=== PATIENT | female | born 1955 | race Caucasian/White ===

== ENCOUNTER → 2018-02-13 14:30 | Outpatient (CLI) | payer OTHER, SELFPAY | PROVIDERS: Visit Provider Nurse Practitioner Gerontology | DX: C50.912 Malignant neoplasm of unspecified site of left female breast (principal) | CPT/HCPCS: 77080 ==

== ENCOUNTER → 2018-02-13 14:53 | Outpatient (CLI) | payer OTHER, SELFPAY ==
[2018-02-13 15:47] LABS: Add Manual Diff / Slide Review NO; Basophils Percent Auto 0.6 % (0-2); Eosinophils Percent Auto 2.9 % (2-4); Hematocrit 37.1 % (36-46); Hemoglobin 13.1 g/dL (12.0-16.0); Lymphocytes Percent Auto 23.7 % (25-40); Mean Corpuscular HGB Conc 35.3 % (30-36); Mean Corpuscular Hemoglobin 35.2 PG (26-34); Mean Corpuscular Volume 99.8 fL (80-100); Monocytes Percent Auto 11.6 % (3-14); Neutrophils Absolute Auto 4200 /uL (3000-5900); Neutrophils Percent Auto 61.2 % (50-75); Platelet Count 186 X10^3/uL (150-400); Red Blood Cell Count 3.72 X10^6/uL (4.0-5.2); Red Cell Distribution Width 11.8 % (11.6-14.8); White Blood Cell Count 6.9 X10^3/uL (4.5-11.0)
[2018-02-13 16:15] LABS: Alanine Aminotransferase 42 IU/L (9-52); Albumin 3.8 g/dL (3.5-5.0); Albumin Globulin Ratio 1.2 (1.0-2.8); Alkaline Phosphatase 75 U/L (38-126); Aspartate Aminotransferase 46 IU/L (14-36); BUN Creatinine Ratio 43.8 (6-22); Bilirubin Total 0.6 mg/dL (0.2-1.3); Calcium 9.9 mg/dL (8.4-10.2); Estimated Glomerular Filt Rate > 60.0 mL/min (>60); Globulin 3.3 g/dL (1.7-4.1); Glucose 83 mg/dL (80-110); HEMOLYSIS 26 (0-50); Potassium 4.2 mmol/L (3.4-5.1); Sodium 137 mmol/L (137-145); Total Protein 7.1 g/dL (6.3-8.2)
[2018-02-17 10:31] LABS: 1 25 Dihydroxy Vitamin D 20 pg/mL (18-72)
[2018-02-17 16:02] LABS: Cancer Antigen 27.29 33 U/mL (< 38)
== END ==
PROVIDERS: Visit Provider Internal Medicine Hematology & Oncology
DX: C50.912 Malignant neoplasm of unspecified site of left female breast (principal)
CPT/HCPCS: 36415; 77080; 80053; 82652; 85025; 86300

== ENCOUNTER → 2018-06-18 14:42 | Outpatient (REF) | payer OTHER, SELFPAY | LOC: LAB 14:42 | PROVIDERS: Visit Provider Physician Assistant | DX: S80.921A Unspecified superficial injury of right lower leg, initial encounter (principal) | CPT/HCPCS: 87070; 87075; 87077; 87147; 87186; 87205 ==

== ENCOUNTER → 2018-06-23 13:23 | Outpatient (CLI) | payer OTHER, SELFPAY ==
--- NOTE | 2018-06-23 | OV.WND_ITS ---
Progress Note Details Patient Name: Yi Yeh Patient Number: [id number] PatientPatientDate: 06/23/2018 Clinician: Miladys Joyce Clinician Cosigner: Mercy Hooper Physician / Medicaid Analyst: Wili Villatoro SUBJECTIVE Chief Complaint This information was obtained from the patient Non-healing wound on right lower extremity. Allergies DAGO Inhibitors (Reaction: cough), penicillin (Reaction: very young age) HPI This information was obtained from the patient 06/23/18. Seen by Dr. Villatoro. The patient is new to our clinic and presents with a chronic right lower leg non-pressure ulcer that she feels started as an insect bite about one month ago. She's been treated with two courses of antibiotics and feels the surrounding redness and pain have increased considerably since last Friday when she was changed to Bactrim due to the recent MRSA positive wound culture. Family History This information was obtained from the patient Diabetes - Father, Heart Disease - Mother, Hypertension - Mother, Father, Sibling, Stroke - Mother Social History This information was obtained from the patient Never smoker, Alcohol Use - 3 wine/day, Caffeine Use - 1/2 cup, Marital Status - , Occupation - [employer] Past Medical History This information was obtained from the patient Patient has a medical history of: Hypertension Left breast cancer Surgical History This information was obtained from the patient Patient has a surgical history of: Appendectomy (Age 14) Left breast lumpectomy Dilation and curettage (cyst removal) Complaints and Symptoms This information was obtained from the patient Patient complains of: General Notes: I have reviewed and concur with the Review of Systems and Past Family Social History documents completed by the clinician, I have reviewed and concur with the Wound Assessment document completed by the clinician Cardiovascular (Central/Peripheral): Lower extremity (leg) swelling Integumentary (Hair/Skin/Nails): Open Sore Prior Wound History: Drainage, Erythema, Pain Patient denies complaints or symptoms related to: Cardiovascular (Central): Irregular heart beat Cardiovascular (Central/Peripheral): Intermittent Claudication, Lower extremity (leg) resting pain Constitutional Symptoms (General Health): Chills, Fever Ear/Nose/Mouth/Throat: Hearing Loss / Aid Hematologic/Lymphatic: Bleeding / Clotting Disorders, Bleeding Tendency Neurological: Loss of Protective Sensation Psychiatric: Memory Loss Respiratory: Shortness of Breath General Notes: Patient chooses not to have flu vaccine. Additional Information Does patient have a history of Cancer? Yes? Complete all questions.: Yes Location of Cancer: [facility] List Treating Oncologist: Dr. Chinchilla Patient underwent Radiation Treatment? If yes, answer question below.: Yes Date of Radiation Month/Year: spring Medications Bactrim DS 800 mg-160 mg tablet oral 1 1 tablet oral twice daily for 10 days for wound infection losartan 100 mg tablet oral 1 1 tablet oral once daily metoprolol succinate ER 100 mg tablet,extended release 24 hr oral 1 1 tablet extended release 24 hr oral once daily Calcium 500 500 mg calcium (1,250 mg) tablet oral 1 1 tablet oral once daily chlorthalidone 25 mg tablet oral 1 1 tablet oral once daily Vitamin C 500 mg tablet oral 1 1 tablet oral once daily Vitamin D3 5,000 unit tablet oral 1 1 tablet oral once daily OBJECTIVE Constitutional Vital signs reviewed and noted. Well developed. Alert. Clean appearing.. Height/ Length: 66 in (167.64 cm), Weight: 196 lbs (89.09 kgs), BMI: 31.6, Temperature: 98.0 ?F ( 36.67 ?C), Pulse: 53 bpm, Respiratory Rate: 18 breaths/min, Blood Pressure: 138/92 mmHg, Pulse Oximetry: 100 %. Ears, Nose, Mouth, and Throat: No clinically significant hearing loss on informal examination. Respiratory: No respiratory distress. Even respirations and without use of accessory muscles.. Cardiovascular: Pedal pulses 2+ on affected limb. Affected extremity exhibits no peripheral edema or cyanosis, is warm, and is well perfused. Capillary refill is less than 2 seconds. Integumentary (Hair, Skin) Mild periwound erythema with warmth. Refer to appropriate clinician wound documentation for this visit; right lower leg ulcer extends to subcut with base partially covered with pink granulation, remainder fibrin and slough. Wound #1 Right Leg is a chronic Full Thickness Venous Ulcer and has received a status of Not Healed. Initial wound encounter measurements are 3cm length x 3cm width x 0.2cm depth, with an area of 9 sq cm and a volume of 1.8 cubic cm. No tunneling has been noted. No sinus tract has been noted. No undermining has been noted. There is a moderate amount of serosanguineous drainage noted which has no odor. The patient reports a wound pain of level 0/10. The wound margin is attached. Wound bed has No epithelialization, Yes eschar, Yes slough, Yes bright red, pink, firm granulation. The periwound skin exhibited: Edema, Moist, Maceration, Erythema, Hemosiderosis. The periwound skin did not exhibit: Brawny Induration, Excoriation, Induration, Callus, Crepitus, Fluctuance, Friable, Rash, Dry/Scaly, Atrophie [place], Cyanosis, Ecchymosis, Pallor, Rubor. The temperature of the periwound skin is WNL. Periwound skin does not exhibit signs or symptoms of infection. Local Pulse is Palpable. Neurological: Cranial nerves grossly intact with symmetric function normal by informal observation.. ASSESSMENT Active Problems ICD-10 (Encounter Diagnosis) L97.512 - Non-pressure chronic ulcer of other part of right foot with fat layer exposed (Encounter Diagnosis) L03.116 - Cellulitis of left lower limb (Encounter Diagnosis) B95.62 - Methicillin resistant Staphylococcus aureus infection as the cause of diseases classified elsewhere PROCEDURES Wound #1 Wound #1 (Venous Ulcer) is located on the right leg. A skin/subcutaneous tissue level surgical debridement with a total area debrided of 9.6 sq cm was performed by Wili Villatoro MD. Subcutaneous was removed along with devitalized tissue: exudate, necrotic/eschar , and slough. The following instrument(s) were used: curette. Pain control was achieved using 4% Lido. A time out was conducted prior to the start of the procedure. A minimal amount of bleeding was controlled with pressure. The procedure was tolerated well with a pain level of 0 throughout and a pain level of 0 following the procedure. Post Debridement Measurements: 3cm length x 3.2cm width x 0.3cm depth; with an area of 9.6 sq cm and a volume of 2.88 cubic cm; Additional Information Muscle fascia or bone removed and sent to pathology?: No PLAN Wound Orders: Wound #1 Right Leg Anesthetic Topical Xylocaine to wound bed. - In clinic only. Cleanser Cleanse Wound: - Normal saline and gauze, may use distilled water at home. May Shower. - Please use cast protector or plastic bag, do not expose wound to shower water. Dressings Cover and secure with: - Silicone bordered foam. Change Dressing: - Every other day. Additional Orders: Compression/Edema Control Elevation of leg(s) above the level of the heart when sitting. Avoid prolonged standing in one place. Single Layer Compression Hose - Tetragrip E. On in the am, off at night. May purchase over the counter compression stockings, 20-30mmHg. Follow-Up Appointments Return Appointment: - - One week. Other information: If you develop fever, chills, increased pain, drainage, redness or swelling please call our office. If after hours, respond to the ER. Should you experience any significant changes in your wound(s) or have any questions regarding your home care instructions please contact the wound center @ [phone]. If after hours, contact your primary care physician or go to the hospital emergency room. Scribing Attestation I attest, as the nurse, that I scribed these orders for the physician. General Notes: Supplies ordered through [facility]. Please continue to take the Bactrim DS antibiotic as prescribed. I've reviewed the clinician's documentation and agree with the evaluation and plan as written. In addition, the patient's ulcer demonstrates evidence of non-viable devitalized tissue which will continue to benefit from sharp debridement to help promote granulation and expedite healing. Also, the patient will complete her Bactrim as prescribed to treat the right lower leg cellulitis and MRSA wound infection. Electronic Signature(s) Signed By: Date: Wili Villatoro MD 07/14/2018 08:43:34 Entered By: Wili Villatoro on 06/23/2018 15:01:35
== END ==
PROVIDERS: PCP Physician Assistant; Visit Provider Internal Medicine
DX: I87.311 Chronic venous hypertension (idiopathic) with ulcer of right lower extremity (principal); L97.812 Non-pressure chronic ulcer of other part of right lower leg with fat layer exposed; B95.62 Methicillin resistant Staphylococcus aureus infection as the cause of diseases classified elsewhere; L03.115 Cellulitis of right lower limb
CPT/HCPCS: 11042; 99214

== ENCOUNTER → 2018-06-30 14:37 | Outpatient (CLI) | payer OTHER, SELFPAY ==
--- NOTE | 2018-06-30 | OV.WND_ITS ---
Progress Note Details Patient Name: Yi Yeh Patient Number: [id number] PatientPatientDate: 06/30/2018 Clinician: Megan Puri Clinician Cosigner: Mercy Hooper Physician / Business Center Attendant: Wili Villatoro SUBJECTIVE Chief Complaint This information was obtained from the patient Non-healing wound on right lower extremity. Allergies DAGO Inhibitors (Reaction: cough), penicillin (Reaction: very young age) HPI This information was obtained from the patient 06/30/18. Seen by Dr. Villatoro. The patient reports improvement in terms of pain associated with the right lower leg non-pressure ulcer since starting on Bactrim for the MRSA positive wound culture taken at her last visit. She does not report fevers, adverse side effects of the Bactrim, nor other acute issues today. 06/23/18. Seen by Dr. Villatoro. The patient is new to our clinic and presents with a chronic right lower leg non-pressure ulcer that she feels started as an insect bite about one month ago. She's been treated with two courses of antibiotics and feels the surrounding redness and pain have increased considerably since last Friday when she was changed to Bactrim due to the recent MRSA positive wound culture. Past Medical History This information was obtained from the patient Patient has a medical history of: Hypertension Left breast cancer Complaints and Symptoms This information was obtained from the patient Patient complains of: General Notes: I have reviewed and concur with the Review of Systems and Past Family Social History documents completed by the clinician, I have reviewed and concur with the Wound Assessment document completed by the clinician Cardiovascular (Central/Peripheral): Lower extremity (leg) swelling Integumentary (Hair/Skin/Nails): Open Sore Prior Wound History: Drainage, Erythema, Pain Patient denies complaints or symptoms related to: Cardiovascular (Central): Irregular heart beat Cardiovascular (Central/Peripheral): Intermittent Claudication, Lower extremity (leg) resting pain Constitutional Symptoms (General Health): Chills, Fever Ear/Nose/Mouth/Throat: Hearing Loss / Aid Hematologic/Lymphatic: Bleeding / Clotting Disorders, Bleeding Tendency Neurological: Loss of Protective Sensation Psychiatric: Memory Loss Respiratory: Shortness of Breath Additional Information Does patient have a history of Cancer? Yes? Complete all questions.: Yes Location of Cancer: [facility] List Treating Oncologist: Dr. Chinchilla Patient underwent Radiation Treatment? If yes, answer question below.: Yes Date of Radiation Month/Year: spring OBJECTIVE Constitutional Vital signs reviewed and noted. Well developed. Alert. Clean appearing.. Height/ Length: 66 in (167.64 cm), Weight: 196.4 lbs (89.27 kgs), BMI: 31.7, Temperature: 98.0 ?F ( 36.67 ?C), Pulse: 67 bpm, Respiratory Rate: 18 breaths/min, Blood Pressure: 131/73 mmHg, Pulse Oximetry: 100 %. Ears, Nose, Mouth, and Throat: No clinically significant hearing loss on informal examination. Cardiovascular: Affected extremity exhibits no peripheral edema or cyanosis, is warm, and is well perfused. Capillary refill is less than 2 seconds. Integumentary (Hair, Skin) No periwound erythema, warmth, or significant drainage. No periwound rashes appreciated or noted otherwise.. Refer to appropriate clinician wound documentation for this visit; right lower leg ulcer extends to subcut with base partially covered with pink granulation, remainder fibrin and slough. Wound #1 Right Leg is a chronic Full Thickness Venous Ulcer and has received a status of Not Healed. Subsequent wound encounter measurements are 1.9cm length x 2.6cm width x 0.1cm depth, with an area of 4.94 sq cm and a volume of 0.494 cubic cm. No tunneling has been noted. No sinus tract has been noted. No undermining has been noted. There is a small amount of serosanguineous drainage noted which has no odor. The patient reports a wound pain of level 3/10. The wound margin is attached. Wound bed has Yes epithelialization, No eschar, Yes slough, Yes bright red, pink, firm granulation. The periwound skin moisture is normal. The periwound skin exhibited: Edema, Erythema, Hemosiderosis. The periwound skin did not exhibit: Brawny Induration, Excoriation, Induration, Callus, Crepitus, Fluctuance, Friable, Rash, Atrophie [place], Cyanosis, Ecchymosis, Pallor, Rubor. The temperature of the periwound skin is WNL. Periwound skin does not exhibit signs or symptoms of infection. Local Pulse is Palpable. Neurological: Cranial nerves grossly intact with symmetric function normal by informal observation.. ASSESSMENT Active Problems ICD-10 (Encounter Diagnosis) L97.512 - Non-pressure chronic ulcer of other part of right foot with fat layer exposed (Encounter Diagnosis) B95.62 - Methicillin resistant Staphylococcus aureus infection as the cause of diseases classified elsewhere PROCEDURES Wound #1 Wound #1 (Venous Ulcer) is located on the right leg. A skin/subcutaneous tissue level surgical debridement with a total area debrided of 4.94 sq cm was performed by Wili Villatoro MD. Subcutaneous was removed along with devitalized tissue: slough. The following instrument(s) were used: curette. Pain control was achieved using 4% Lido. A time out was conducted prior to the start of the procedure. A minimal amount of bleeding was controlled with pressure. The procedure was tolerated well with a pain level of 0 throughout and a pain level of 0 following the procedure. Post Debridement Measurements: 1.9cm length x 2.6cm width x 0.2cm depth; with an area of 4.94 sq cm and a volume of 0.988 cubic cm; Additional Information Muscle fascia or bone removed and sent to pathology?: No PLAN Wound Orders: Wound #1 Right Leg Anesthetic Topical Xylocaine to wound bed. - In clinic only. Cleanser Cleanse Wound: - Normal saline and gauze, may use distilled water at home. May Shower. - Please use cast protector or plastic bag, do not expose wound to shower water. Topical Treatments Antibiotic/Antimicrobial Ointment/Cream. - Gentamicin ointment to wound base. Dressings Primary dressing: - Foam Cover and secure with: - Conform and tape. Change Dressing: - Everyday. Additional Orders: Compression/Edema Control Elevation of leg(s) above the level of the heart when sitting. Avoid prolonged standing in one place. Single Layer Compression Hose - Tetragrip E. On in the am, off at night. May purchase over the counter compression stockings, 20-30mmHg. Follow-Up Appointments Return Appointment: - - One week. Other information: If you develop fever, chills, increased pain, drainage, redness or swelling please call our office. If after hours, respond to the ER. Should you experience any significant changes in your wound(s) or have any questions regarding your home care instructions please contact the wound center @ [phone]. If after hours, contact your primary care physician or go to the hospital emergency room. Scribing Attestation I attest, as the nurse, that I scribed these orders for the physician. Medications prescribed: gentamicin - topical 0.1 % ointment once daily for 7 days for infected ulcer starting 06/30/2018 General Notes: Please pick pulling machine tender prescription at your pharmacy. I've reviewed the clinician's documentation and agree with the evaluation and plan as written. In addition, the patient's ulcer demonstrates evidence of non-viable devitalized tissue which will continue to benefit from sharp debridement to help promote granulation and expedite healing. Also, the patient will begin using topical gentamicin to treat the MRSA positive culture and we'll defer additional oral antibiotics for now. Electronic Signature(s) Signed By: Date: Wili Villatoro MD 07/01/2018 13:52:56 Entered By: Wili Villatoro on 07/01/2018 11:50:18
--- NOTE | 2018-07-28 14:26 | ONC.NAV ---
Description: Survivorship Care Plan/Summary Activity: Sent copies to both pt and Primary Care Provider.
== END ==
PROVIDERS: PCP Physician Assistant; Visit Provider Internal Medicine
DX: I87.311 Chronic venous hypertension (idiopathic) with ulcer of right lower extremity (principal); L97.812 Non-pressure chronic ulcer of other part of right lower leg with fat layer exposed; B95.62 Methicillin resistant Staphylococcus aureus infection as the cause of diseases classified elsewhere
CPT/HCPCS: 11042

== ENCOUNTER → 2018-07-07 14:24 | Outpatient (CLI) | payer OTHER, SELFPAY ==
--- NOTE | 2018-07-07 | OV.WND_ITS ---
Progress Note Details Patient Name: Yi Yeh Patient Number: [id number] PatientPatientDate: 07/07/2018 Clinician: Miladys Joyce Clinician Cosigner: Margo Morrell Physician / Press Tool Maker: Wili Villatoro SUBJECTIVE Chief Complaint This information was obtained from the patient Non-healing wound on right lower extremity. Allergies DAGO Inhibitors (Reaction: cough), penicillin (Reaction: very young age) HPI This information was obtained from the patient 07/08/18. Seen by Dr. Villatoro. The patient reports improvement in terms of pain associated with the right lower leg non-pressure ulcer since her last visit. 06/30/18. Seen by Dr. Villatoro. The patient reports improvement in terms of pain associated with the right lower leg non-pressure ulcer since starting on Bactrim for the MRSA positive wound culture taken at her last visit. She does not report fevers, adverse side effects of the Bactrim, nor other acute issues today. 06/23/18. Seen by Dr. Villatoro. The patient is new to our clinic and presents with a chronic right lower leg non-pressure ulcer that she feels started as an insect bite about one month ago. She's been treated with two courses of antibiotics and feels the surrounding redness and pain have increased considerably since last Friday when she was changed to Bactrim due to the recent MRSA positive wound culture. Past Medical History This information was obtained from the patient Patient has a medical history of: Hypertension Left breast cancer Complaints and Symptoms This information was obtained from the patient Patient complains of: General Notes: I have reviewed and concur with the Review of Systems and Past Family Social History documents completed by the clinician, I have reviewed and concur with the Wound Assessment document completed by the clinician Cardiovascular (Central/Peripheral): Lower extremity (leg) swelling Integumentary (Hair/Skin/Nails): Open Sore Prior Wound History: Drainage, Erythema, Pain Patient denies complaints or symptoms related to: Cardiovascular (Central): Irregular heart beat Cardiovascular (Central/Peripheral): Intermittent Claudication, Lower extremity (leg) resting pain Constitutional Symptoms (General Health): Chills, Fever Ear/Nose/Mouth/Throat: Hearing Loss / Aid Hematologic/Lymphatic: Bleeding / Clotting Disorders, Bleeding Tendency Neurological: Loss of Protective Sensation Psychiatric: Memory Loss Respiratory: Shortness of Breath Additional Information Does patient have a history of Cancer? Yes? Complete all questions.: Yes Location of Cancer: [facility] List Treating Oncologist: Dr. Chinchilla Patient underwent Radiation Treatment? If yes, answer question below.: Yes Date of Radiation Month/Year: spring OBJECTIVE Constitutional BP elevated; Afebrile; Alert and in no distress. Well developed. Alert. Clean appearing.. Height/Length: 66 in (167.64 cm), Weight: 198.8 lbs (90.36 kgs), BMI: 32.1, Temperature: 97.8 ?F (36.56 ?C), Pulse: 76 bpm, Respiratory Rate: 18 breaths/min, Blood Pressure: 150/81 mmHg, Pulse Oximetry: 98 %. Cardiovascular: Affected extremity exhibits no peripheral edema or cyanosis, is warm, and is well perfused. Capillary refill is less than 2 seconds. Integumentary (Hair, Skin) No periwound erythema, warmth, or significant drainage. No periwound rashes appreciated or noted otherwise.. Refer to appropriate clinician wound documentation for this visit; right lower leg ulcer extends to subcut with base partially covered with pink granulation, remainder fibrin and slough. Wound #1 Right Leg is a chronic Full Thickness Venous Ulcer and has received a status of Not Healed. Subsequent wound encounter measurements are 1.1cm length x 1.8cm width x 0.1cm depth, with an area of 1.98 sq cm and a volume of 0.198 cubic cm. No tunneling has been noted. No sinus tract has been noted. No undermining has been noted. There is a scant amount of serous drainage noted which has no odor. The patient reports a wound pain of level 3/10. The wound margin is attached. Wound bed has Yes epithelialization, No eschar, Yes slough, Yes bright red, pink, firm granulation. The periwound skin moisture is normal. The periwound skin exhibited: Edema, Hemosiderosis. The periwound skin did not exhibit: Brawny Induration, Excoriation, Induration, Callus, Crepitus, Fluctuance, Friable, Rash, Atrophie [place], Cyanosis, Ecchymosis, Erythema, Pallor, Rubor. The temperature of the periwound skin is WNL. Periwound skin does not exhibit signs or symptoms of infection. Local Pulse is Palpable. Neurological: Cranial nerves grossly intact with symmetric function normal by informal observation.. ASSESSMENT Active Problems ICD-10 (Encounter Diagnosis) L97.512 - Non-pressure chronic ulcer of other part of right foot with fat layer exposed PROCEDURES Wound #1 Wound #1 (Venous Ulcer) is located on the right leg. A skin/subcutaneous tissue level surgical debridement with a total area debrided of 1.98 sq cm was performed by Wili Villatoro MD. Subcutaneous was removed along with devitalized tissue: slough. The following instrument(s) were used: curette. Pain control was achieved using 4% Lido. A time out was conducted prior to the start of the procedure. A minimal amount of bleeding was controlled with n/a. The procedure was tolerated well with a pain level of 0 throughout and a pain level of 0 following the procedure. Post Debridement Measurements: 1.1cm length x 1.8cm width x 0.2cm depth; with an area of 1.98 sq cm and a volume of 0.396 cubic cm; Additional Information Muscle fascia or bone removed and sent to pathology?: No PLAN Wound Orders: Wound #1 Right Leg Anesthetic Topical Xylocaine to wound bed. - In clinic only. Cleanser Cleanse Wound: - Normal saline and gauze, may use distilled water at home. May Shower. - Please use cast protector or plastic bag, do not expose wound to shower water. Topical Treatments Antibiotic/Antimicrobial Ointment/Cream. - Triple antibiotic ointment. Dressings Primary dressing: - Telfa non-stick pad. Cover and secure with: - Conform and tape. Change Dressing: - Every 2-3 days. Additional Orders: Compression/Edema Control Elevation of leg(s) above the level of the heart when sitting. Avoid prolonged standing in one place. Single Layer Compression Hose - Tetragrip E. On in the am, off at night. May purchase over the counter compression stockings, 20-30mmHg. Follow-Up Appointments Return Appointment: - - Two weeks. Other information: If you develop fever, chills, increased pain, drainage, redness or swelling please call our office. If after hours, respond to the ER. Should you experience any significant changes in your wound(s) or have any questions regarding your home care instructions please contact the wound center @ [phone]. If after hours, contact your primary care physician or go to the hospital emergency room. Scribing Attestation I attest, as the nurse, that I scribed these orders for the physician. I've reviewed the clinician's documentation and agree with the evaluation and plan as written. In addition, the patient's ulcer demonstrates evidence of non-viable devitalized tissue which will continue to benefit from sharp debridement to help promote granulation and expedite healing. Electronic Signature(s) Signed By: Date: Wili Villatoro MD 07/08/2018 07:59:58 Entered By: Wili Villatoro on 07/08/2018 07:34:46
== END ==
PROVIDERS: Family Provider Physician Assistant; PCP Physician Assistant; Visit Provider Internal Medicine
DX: I87.312 Chronic venous hypertension (idiopathic) with ulcer of left lower extremity (principal); L97.812 Non-pressure chronic ulcer of other part of right lower leg with fat layer exposed
CPT/HCPCS: 11042

== ENCOUNTER → 2018-07-21 10:09 | Outpatient (CLI) | payer OTHER, SELFPAY ==
--- NOTE | 2018-07-21 | OV.WND_ITS ---
Progress Note Details Patient Name: Yi Yeh Patient Number: [id number] PatientPatientDate: 07/21/2018 Clinician: Megan Puri Clinician Cosigner: Mercy Hooper Physician / Circle Edger: Wili Villatoro SUBJECTIVE Chief Complaint This information was obtained from the patient Non-healing wound on right lower extremity. Allergies DAGO Inhibitors (Reaction: cough), penicillin (Reaction: very young age) HPI This information was obtained from the patient 07/21/18. Seen by Dr. Villatoro. The patient complains of increased pain and drainage associated with the chronic right lower leg non-pressure ulcer over the past few days and she's no longer applying topical gentamicin to the ulcer base to treat the recent MRSA positive wound culture. 07/08/18. Seen by Dr. Villatoro. The patient reports improvement in terms of pain associated with the right lower leg non-pressure ulcer since her last visit. 06/30/18. Seen by Dr. Villatoro. The patient reports improvement in terms of pain associated with the right lower leg non-pressure ulcer since starting on Bactrim for the MRSA positive wound culture taken at her last visit. She does not report fevers, adverse side effects of the Bactrim, nor other acute issues today. 06/23/18. Seen by Dr. Villatoro. The patient is new to our clinic and presents with a chronic right lower leg non-pressure ulcer that she feels started as an insect bite about one month ago. She's been treated with two courses of antibiotics and feels the surrounding redness and pain have increased considerably since last Friday when she was changed to Bactrim due to the recent MRSA positive wound culture. Past Medical History This information was obtained from the patient Patient has a medical history of: Hypertension Left breast cancer Complaints and Symptoms This information was obtained from the patient Patient complains of: General Notes: I have reviewed and concur with the Review of Systems and Past Family Social History documents completed by the clinician, I have reviewed and concur with the Wound Assessment document completed by the clinician Cardiovascular (Central/Peripheral): Lower extremity (leg) swelling Integumentary (Hair/Skin/Nails): Open Sore Prior Wound History: Drainage, Erythema, Pain Patient denies complaints or symptoms related to: Cardiovascular (Central): Irregular heart beat Cardiovascular (Central/Peripheral): Intermittent Claudication, Lower extremity (leg) resting pain Constitutional Symptoms (General Health): Chills, Fever Ear/Nose/Mouth/Throat: Hearing Loss / Aid Hematologic/Lymphatic: Bleeding / Clotting Disorders, Bleeding Tendency Neurological: Loss of Protective Sensation Psychiatric: Memory Loss Respiratory: Shortness of Breath Additional Information Does patient have a history of Cancer? Yes? Complete all questions.: Yes Location of Cancer: [facility] List Treating Oncologist: Dr. Chinchilla Patient underwent Radiation Treatment? If yes, answer question below.: Yes Date of Radiation Month/Year: spring OBJECTIVE Constitutional BP elevated; Afebrile; Alert and in no distress. Well developed. Alert. Clean appearing.. Height/Length: 66 in (167.64 cm), Weight: 198.8 lbs (90.36 kgs), BMI: 32.1, Pulse: 68 bpm, Respiratory Rate: 18 breaths/min, Blood Pressure: 151/100 mmHg, Pulse Oximetry: 99 %. Ears, Nose, Mouth, and Throat: No clinically significant hearing loss on informal examination. Cardiovascular: 1+ right lower extremity edema. Integumentary (Hair, Skin) Mild periwound erythema with warmth. Refer to appropriate clinician wound documentation for this visit; right lower leg ulcer extends to subcut with base partially covered with pink granulation, remainder fibrin and slough. Wound #1 Right Leg is a chronic Full Thickness Venous Ulcer and has received a status of Not Healed. Subsequent wound encounter measurements are 2cm length x 4.5cm width x 0.1cm depth, with an area of 9 sq cm and a volume of 0.9 cubic cm. No tunneling has been noted. No sinus tract has been noted. No undermining has been noted. There is a moderate amount of purulent drainage noted which has no odor. The patient reports a wound pain of level 10/10. The wound margin is attached. Wound bed has Yes epithelialization, No eschar, Yes slough, Yes bright red, pink, firm granulation. The periwound skin exhibited: Edema, Maceration, Erythema, Hemosiderosis. The periwound skin did not exhibit: Brawny Induration, Excoriation, Induration, Callus, Crepitus, Fluctuance, Friable, Rash, Dry/Scaly, Moist, Atrophie [place], Cyanosis, Ecchymosis, Pallor , Rubor. The temperature of the periwound skin is WNL. Periwound skin does not exhibit signs or symptoms of infection. Local Pulse is Palpable. General Notes: measured epithelial bridge 0.4 Neurological: Cranial nerves grossly intact with symmetric function normal by informal observation.. ASSESSMENT Active Problems ICD-10 (Encounter Diagnosis) L97.512 - Non-pressure chronic ulcer of other part of right foot with fat layer exposed (Encounter Diagnosis) L03.115 - Cellulitis of right lower limb PROCEDURES Wound #1 Wound #1 (Venous Ulcer) is located on the right leg. A skin/subcutaneous tissue level surgical debridement with a total area debrided of 9 sq cm was performed by Wili Villatoro MD. Subcutaneous was removed along with devitalized tissue: slough. The following instrument(s) were used: curette. Pain control was achieved using 4% Lido. A time out was conducted prior to the start of the procedure. A minimal amount of bleeding was controlled with n/a. The procedure was tolerated well with a pain level of 0 throughout and a pain level of 0 following the procedure. Post Debridement Measurements: 2cm length x 4.5cm width x 0.2cm depth; with an area of 9 sq cm and a volume of 1.8 cubic cm; Additional Information Muscle fascia or bone removed and sent to pathology?: No PLAN Wound Orders: Wound #1 Right Leg Anesthetic Topical Xylocaine to wound bed. - In clinic only. Cleanser Cleanse Wound: - Normal saline and gauze, may use distilled water at home. May Shower. - Please use cast protector or plastic bag, do not expose wound to shower water. Topical Treatments Antibiotic/Antimicrobial Ointment/Cream. - Gentamicin ointment to wound base. Dressings Primary dressing: - Telfa non-stick pad. Cover and secure with: - Conform and tape. Change Dressing: - Every 2-3 days. Additional Orders: Compression/Edema Control Elevation of leg(s) above the level of the heart when sitting. Avoid prolonged standing in one place. Single Layer Compression Hose - Tetragrip E. On in the am, off at night. May purchase over the counter compression stockings, 20-30mmHg. Follow-Up Appointments Return Appointment: - - One week Other information: If you develop fever, chills, increased pain, drainage, redness or swelling please call our office. If after hours, respond to the ER. Should you experience any significant changes in your wound(s) or have any questions regarding your home care instructions please contact the wound center @ [phone]. If after hours, contact your primary care physician or go to the hospital emergency room. Scribing Attestation I attest, as the nurse, that I scribed these orders for the physician. Medications prescribed: Bactrim DS - oral 800 mg-160 mg tablet twice daily for 7 days for infected ulcer starting 07/21/2018 General Notes: Please chicken picker prescription at your pharmacy. We will call you if the physician wants to add or change another antibiotics regarding the wound culture result. I've reviewed the clinician's documentation and agree with the evaluation and plan as written. In addition, the patient's ulcer demonstrates evidence of non-viable devitalized tissue which will continue to benefit from sharp debridement to help promote granulation and expedite healing. Electronic Signature(s) Signed By: Date: Wili Villatoro MD 07/22/2018 06:45:54 Entered By: Wili Villatoro on 07/21/2018 15:37:24
== END ==
PROVIDERS: Family Provider Physician Assistant; PCP Physician Assistant; Visit Provider Internal Medicine
DX: I87.311 Chronic venous hypertension (idiopathic) with ulcer of right lower extremity (principal); L97.812 Non-pressure chronic ulcer of other part of right lower leg with fat layer exposed; L03.115 Cellulitis of right lower limb
CPT/HCPCS: 11042; 87070; 87077; 87147; 87186; 87205

== ENCOUNTER → 2018-07-28 14:38 | Outpatient (CLI) | payer OTHER, SELFPAY | PROVIDERS: Family Provider Physician Assistant; PCP Physician Assistant; Visit Provider Internal Medicine | DX: I87.311 Chronic venous hypertension (idiopathic) with ulcer of right lower extremity (principal); L97.812 Non-pressure chronic ulcer of other part of right lower leg with fat layer exposed; A49.02 Methicillin resistant Staphylococcus aureus infection, unspecified site | CPT/HCPCS: 11042 ==

== ENCOUNTER → 2018-08-04 16:19 | Outpatient (CLI) | payer OTHER, SELFPAY ==
--- NOTE | 2018-08-04 | OV.WND_ITS ---
Progress Note Details Patient Name: Yi Yeh Patient Number: [id number] PatientPatientDate: 08/04/2018 Clinician: Miladys Joyce Clinician Cosigner: Mercy Hooper Physician / Cadmium Liquor Maker: Wili Villatoro SUBJECTIVE Chief Complaint This information was obtained from the patient Non-healing wound on right lower extremity. Allergies DAGO Inhibitors (Reaction: cough), penicillin (Reaction: very young age) HPI This information was obtained from the patient 08/04/18. Seen by Dr. Villatoro. The patient reports improvement in terms of pain associated with the right lower leg non-pressure ulcer since starting on Bactrim for the MRSA positive wound culture taken at her last visit. She's also applying topical gentamicin daily as recommended. 07/28/18. Seen by Dr. Villaotro. The patient reports improvement in terms of pain associated with the right lower leg non-pressure ulcer since starting on Bactrim for the MRSA positive wound culture taken at her last visit. 07/21/18. Seen by Dr. Villatoro. The patient complains of increased pain and drainage associated with the chronic right lower leg non-pressure ulcer over the past few days and she's no longer applying topical gentamicin to the ulcer base to treat the recent MRSA positive wound culture. 07/08/18. Seen by Dr. Villatoro. The patient reports improvement in terms of pain associated with the right lower leg non-pressure ulcer since her last visit. 06/30/18. Seen by Dr. Villatoro. The patient reports improvement in terms of pain associated with the right lower leg non-pressure ulcer since starting on Bactrim for the MRSA positive wound culture taken at her last visit. She does not report fevers, adverse side effects of the Bactrim, nor other acute issues today. 06/23/18. Seen by Dr. Villatoro. The patient is new to our clinic and presents with a chronic right lower leg non-pressure ulcer that she feels started as an insect bite about one month ago. She's been treated with two courses of antibiotics and feels the surrounding redness and pain have increased considerably since last Friday when she was changed to Bactrim due to the recent MRSA positive wound culture. Past Medical History This information was obtained from the patient Patient has a medical history of: Hypertension Left breast cancer Complaints and Symptoms This information was obtained from the patient Patient complains of: General Notes: I have reviewed and concur with the Review of Systems and Past Family Social History documents completed by the clinician, I have reviewed and concur with the Wound Assessment document completed by the clinician Cardiovascular (Central/Peripheral): Lower extremity (leg) swelling Integumentary (Hair/Skin/Nails): Open Sore Prior Wound History: Drainage, Erythema, Pain Patient denies complaints or symptoms related to: Cardiovascular (Central): Irregular heart beat Cardiovascular (Central/Peripheral): Intermittent Claudication, Lower extremity (leg) resting pain Constitutional Symptoms (General Health): Chills, Fever Ear/Nose/Mouth/Throat: Hearing Loss / Aid Hematologic/Lymphatic: Bleeding / Clotting Disorders, Bleeding Tendency Neurological: Loss of Protective Sensation Psychiatric: Memory Loss Respiratory: Shortness of Breath Additional Information Does patient have a history of Cancer? Yes? Complete all questions.: Yes Location of Cancer: [facility] List Treating Oncologist: Dr. Chinchilla Patient underwent Radiation Treatment? If yes, answer question below.: Yes Date of Radiation Month/Year: spring OBJECTIVE Constitutional Vital signs reviewed and noted. Well developed. Alert. Clean appearing.. Height/ Length: 66 in (167.64 cm), Weight: 197.2 lbs (89.64 kgs), BMI: 31.8, Temperature: 97.6 ?F ( 36.44 ?C), Pulse: 80 bpm, Respiratory Rate: 16 breaths/min, Blood Pressure: 129/79 mmHg, Pulse Oximetry: 97 %. Respiratory: No respiratory distress. Even respirations and without use of accessory muscles.. Cardiovascular: Affected extremity exhibits no peripheral edema or cyanosis, is warm, and is well perfused. Capillary refill is less than 2 seconds. Integumentary (Hair, Skin) No periwound erythema, warmth, or significant drainage. No periwound rashes appreciated or noted otherwise.. Refer to appropriate clinician wound documentation for this visit; right lower leg ulcer extends to subcut with base partially covered with pink granulation, remainder fibrin and slough. Wound #1 Right Leg is a chronic Full Thickness Venous Ulcer and has received a status of Not Healed. Subsequent wound encounter measurements are 1cm length x 2.1cm width x 0.1cm depth, with an area of 2.1 sq cm and a volume of 0.21 cubic cm. No tunneling has been noted. No sinus tract has been noted. No undermining has been noted. There is a small amount of serous drainage noted which has no odor. The patient reports a wound pain of level 2/10. The wound margin is attached. Wound bed has Yes epithelialization, No eschar, Yes slough, Yes bright red, pink, firm granulation. The periwound skin exhibited: Edema, Moist, Hemosiderosis. The periwound skin did not exhibit: Brawny Induration, Excoriation, Induration, Callus, Crepitus, Fluctuance, Friable, Rash, Dry/Scaly, Maceration, Atrophie [place], Cyanosis, Ecchymosis, Erythema, Pallor , Rubor. The temperature of the periwound skin is WNL. Periwound skin does not exhibit signs or symptoms of infection. Local Pulse is Palpable. ASSESSMENT Active Problems ICD-10 (Encounter Diagnosis) L97.512 - Non-pressure chronic ulcer of other part of right foot with fat layer exposed (Encounter Diagnosis) B95.62 - Methicillin resistant Staphylococcus aureus infection as the cause of diseases classified elsewhere PROCEDURES Wound #1 Wound #1 (Venous Ulcer) is located on the right leg. A skin/subcutaneous tissue level surgical debridement with a total area debrided of 2.1 sq cm was performed by Wili Villatoro MD. Subcutaneous was removed along with devitalized tissue: exudate and slough. The following instrument(s) were used: curette. Pain control was achieved using 4% Lido. A time out was conducted prior to the start of the procedure. No bleeding occurred. The procedure was tolerated well with a pain level of 0 throughout and a pain level of 0 following the procedure. Post Debridement Measurements: 1cm length x 2.1cm width x 0.2cm depth; with an area of 2.1 sq cm and a volume of 0.42 cubic cm; Additional Information Muscle fascia or bone removed and sent to pathology?: No PLAN Wound Orders: Wound #1 Right Leg Anesthetic Topical Xylocaine to wound bed. - Used in clinic. Cleanser Cleanse Wound: - Normal saline and gauze. May use distilled water at home. May Shower. - Cover with cast protector or plastic bag. Topical Treatments Antibiotic/Antimicrobial Ointment/Cream. - Gentamicin ointment. Dressings Cover and secure with: - Telfa pad, paper tape. Change Dressing: - Every 2-3 days. Compression/Edema Control Elevation of leg(s) above the level of the heart when sitting. Avoid prolonged standing in one place. Single Layer Compression Hose - Tetragrip E to right leg. On in the am, off at night. Follow-Up Appointments Return Appointment: - - 10-14 days. Other information: If you develop fever, chills, increased pain, drainage, redness or swelling please call our office. If after hours, respond to the ER. Should you experience any significant changes in your wound(s) or have any questions regarding your home care instructions please contact the wound center @ [phone]. If after hours, contact your primary care physician or go to the hospital emergency room. Scribing Attestation I attest, as the nurse, that I scribed these orders for the physician. I've reviewed the clinician's documentation and agree with the evaluation and plan as written. In addition, the patient's ulcer demonstrates evidence of non-viable devitalized tissue which will continue to benefit from sharp debridement to help promote granulation and expedite healing. Also, I'll defer additional oral antibiotics however she'll continue treating with topical gentamicin ointment. Electronic Signature(s) Signed By: Date: Wili Villatoro MD 08/05/2018 07:09:40 Entered By: Wili Villatoro on 08/05/2018 06:58:47
== END ==
PROVIDERS: Family Provider Physician Assistant; PCP Physician Assistant; Visit Provider Internal Medicine
DX: I87.2 Venous insufficiency (chronic) (peripheral) (principal); L97.812 Non-pressure chronic ulcer of other part of right lower leg with fat layer exposed; B95.62 Methicillin resistant Staphylococcus aureus infection as the cause of diseases classified elsewhere
CPT/HCPCS: 11042

== ENCOUNTER → 2018-08-19 14:53 | Outpatient (CLI) | payer OTHER, SELFPAY | PROVIDERS: Family Provider Physician Assistant; PCP Physician Assistant; Visit Provider Family Medicine | DX: I87.311 Chronic venous hypertension (idiopathic) with ulcer of right lower extremity (principal); L97.811 Non-pressure chronic ulcer of other part of right lower leg limited to breakdown of skin | CPT/HCPCS: 99212; 99213 ==

== ENCOUNTER → 2018-08-25 14:52 | Outpatient (CLI) | payer OTHER, SELFPAY | PROVIDERS: Family Provider Physician Assistant; PCP Physician Assistant; Visit Provider Family Medicine | DX: I87.311 Chronic venous hypertension (idiopathic) with ulcer of right lower extremity (principal); L97.811 Non-pressure chronic ulcer of other part of right lower leg limited to breakdown of skin | CPT/HCPCS: 99212; 99213 ==

== ENCOUNTER → 2018-09-02 14:46 | Outpatient (CLI) | payer OTHER, SELFPAY | PROVIDERS: Family Provider Physician Assistant; PCP Physician Assistant; Visit Provider Family Medicine | DX: L97.811 Non-pressure chronic ulcer of other part of right lower leg limited to breakdown of skin (principal); I87.311 Chronic venous hypertension (idiopathic) with ulcer of right lower extremity; M13.849 Other specified arthritis, unspecified hand | CPT/HCPCS: 99213 ==

== ENCOUNTER → 2018-09-02 15:52 | Outpatient (CLI) | payer OTHER, SELFPAY ==
[2018-09-02 16:35] LABS: Erythrocyte Sedimentation Rate 42 MM/HR (0-20)
[2018-09-02 17:07] LABS: High Sensitivity CRP - Cardiac 4.3 mg/L (1.0-3.0)
[2018-09-02 17:14] LABS: Rheumatoid Factor < 8.6 IU/mL (<12.0)
[2018-09-07 23:11] LABS: ANA Screen NEGATIVE (Negative); DNA Antibody Crithidia IFA NEGATIVE (Negative); Rheumatoid Factor <14 IU/mL; Sjogren Antiboday SS-A <1.0 NEG AI (<1.0 NEGATIVE); Sjogren Antiboday SS-B <1.0 NEG AI (<1.0 NEGATIVE); Sm Antibody <1.0 NEG AI (<1.0 NEGATIVE); Sm/RNP Antibody <1.0 NEG AI (<1.0 NEGATIVE)
== END ==
PROVIDERS: Family Provider Physician Assistant; PCP Physician Assistant; Visit Provider Family Medicine
DX: M25.50 Pain in unspecified joint (principal)
CPT/HCPCS: 36415; 85651; 86038; 86140; 86430

== ENCOUNTER → 2019-02-15 15:16 | Outpatient (CLI) | payer OTHER, SELFPAY ==
--- NOTE | 2019-02-15 | DI.MG.S_ITS ---
BILATERAL DIGITAL SCREENING MAMMOGRAM 3D/2D WITH CAD: 02/15/2019 CLINICAL: Routine screening. Personal history of left breast cancer. Comparison is made to exams dated: 02/14/2018 mammogram, 10/15/2016 mammogram, and 04/24/2016 mammogram - [facility]. The tissue of both breasts is predominantly fatty. Current study was also evaluated with a Computer Aided Detection (CAD) system. There are benign post operative findings in the left breast. No significant masses, calcifications, or other findings are seen in either breast. There has been no significant interval change. IMPRESSION: There is no mammographic evidence of malignancy. A 1 year screening mammogram is recommended. This exam was interpreted at Station ID: [id number]. NOTE: For mammograms, a report in lay terms will be sent to the patient. Approximately 15% of breast malignancies will not be visualized mammographically. In the management of a palpable breast mass, a negative mammogram must not discourage biopsy of a clinically suspicious lesion. Electronically Signed By: Javier saavedra/renuka:02/15/2019 16:45:13 letter sent: Normal Exam ACR BI-RADS Category 2: Benign Finding(s) 3342F
== END ==
PROVIDERS: PCP Physician Assistant
DX: Z12.31 Encounter for screening mammogram for malignant neoplasm of breast (principal); Z85.3 Personal history of malignant neoplasm of breast
CPT/HCPCS: 77063; 77067

== ENCOUNTER 2021-09-22 06:23 | Inpatient (IN) | payer MEDICARE, OTHER, SELFPAY ==
[2021-09-22] VITALS (19 sets, daily range): BP systolic 93–153; BP diastolic 52–64; PULSE 72–91; RESP 16–23; TEMP 36.7–37.7; O2SAT 95–100; BMI 31.1
--- NOTE | 2021-09-22 06:37 | DI.CT.S_ITS ---
PROCEDURE: CT CERVICAL SPINE WO CON INDICATIONS: Trauma TECHNIQUE: Noncontrast 3 mm thick sections acquired from the skull base to the T4 level. Sagittal and coronal reformats were then constructed. For radiation dose reduction, the following was used: automated exposure control, adjustment of mA and/or kV according to patient size. COMPARISON: None. FINDINGS: Image quality: Excellent. Bones: No fractures or dislocations. Visualized superior ribs are intact. The left temporomandibular joint has degenerative changes. The cervical spine has multilevel degenerative changes with disc space narrowing and anterior osteophytes at C3-4, C4-5, C5-6, and C6-7. Posterior disc osteophytes are also seen at these levels. There is facet arthrosis throughout the cervical spine. Soft tissues: Prevertebral soft tissues are normal in thickness. No paravertebral hematomas. No apical pneumothoraces. IMPRESSION: 1. No acute traumatic abnormality of the cervical spine. 2. Multilevel degenerative changes and degenerative disc disease of the cervical spine. Dictated by: Elroy Gamez M.D. on 09/22/2021 at 7:52 Approved by: Elroy Gamez M.D. on 09/22/2021 at 7:54
--- NOTE | 2021-09-22 06:37 | DI.CT.S_ITS ---
PROCEDURE: CT HEAD/BRAIN WO CON INDICATIONS: Trauma TECHNIQUE: Noncontrast 4.5 mm thick angled axial sections acquired from the foramen magnum to the vertex, with coronal and sagittal reformats. For radiation dose reduction, the following was used: automated exposure control, adjustment of mA and/or kV according to patient size. COMPARISON: None. FINDINGS: Image quality: Excellent. CSF spaces: Basal cisterns are patent. No extra-axial fluid collections. Ventricles are normal in size and shape. Brain: No midline shift. No intracranial masses or hemorrhage. Dsouza-white matter interface is normal. Age related volume loss is noted. Skull and face: Calvarium and visualized facial bones are intact, without suspicious lesions. Sinuses: Visualized sinuses and mastoids are clear. IMPRESSION: No acute intracranial abnormality. Dictated by: Elroy Gamez M.D. on 09/22/2021 at 7:49 Approved by: Elroy Gamez M.D. on 09/22/2021 at 7:51
--- NOTE | 2021-09-22 06:37 | DI.CT.S_ITS ---
PROCEDURE: CT CHEST ABD PEL W CON INDICATIONS: rectal bleeding, trauma TECHNIQUE: After the administration of intravenous contrast, 5 mm thick sections acquired from the lung apices to the symphysis. 2.5 mm thick coronal and sagittal reformats were acquired. Additional 7 mm thick coronal maximum intensity projection (MIP) reformats acquired through the lungs. Optional 10-minute delayed imaging may be performed from the kidneys to the bladder. For radiation dose reduction, the following was used: automated exposure control, adjustment of mA and/or kV according to patient size. COMPARISON: None. FINDINGS: Image quality: Excellent. CHEST: Lungs: No pulmonary contusions or lacerations. No acute airspace opacities. No pneumothorax or hemothorax. Central and peripheral airways appear patent and normal in caliber. Mediastinum: No mediastinal hematomas. Heart size is normal. No pericardial effusion. Thoracic aorta and pulmonary arteries demonstrate normal size and enhancement. No mediastinal or hilar adenopathy. Esophagus is normal in caliber. No hiatal hernia. Chest wall: No rib fractures. No subcutaneous emphysema. No axillary or supraclavicular adenopathy. Thyroid gland is normal. ABDOMEN: Solid organs: The liver has a 6 cm cyst in the right lobe. The liver has multiple subcentimeter hypodensities, likely cysts but too small to further characterize. No solid mass. No intrahepatic biliary ductal dilatation. The gallbladder contains layering high density, likely sludge. The pancreas, spleen, and adrenal glands are normal. Both kidneys have a normal appearance except for a 1.5 cm cyst of the left superior pole. No hydronephrosis or nephroureteral calculus. The uterus contains multiple fibroids 1 of which on the right is calcified. Peritoneum and bowel: The sigmoid colon has diverticulosis with no evidence of acute diverticulitis. Nodes and vessels: No retroperitoneal or mesenteric adenopathy. Aorta and inferior vena cava are normal in size and enhancement. Miscellaneous: No ventral hernias. PELVIS: Genitourinary: The left ovary has a 2 cm cyst. Miscellaneous: No inguinal hernias or adenopathy. Bones: Multilevel degenerative changes and multilevel disc disease. Pelvic ring and hip joints appear intact. No vertebral compression fractures. IMPRESSION: 1. No acute traumatic abnormality of the chest, abdomen, or pelvis. 2. Diverticulosis of the sigmoid colon with no evidence of acute diverticulitis. 3. 7 cm right hepatic simple cyst with multiple subcentimeter hypodensities, likely cysts but too small to further characterize cysts but too small to further characterize. If there is suspicion of any liver abnormality this could be further evaluated with ultrasound. 4. Gallbladder sludge with no evidence of acute cholecystitis. Dictated by: Elroy Gamez M.D. on 09/22/2021 at 7:59 Approved by: Elroy Gamez M.D. on 09/22/2021 at 8:10
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
--- NOTE | 2021-09-22 06:45 | DI.RAD.S_ITS ---
PROCEDURE: XR SHOULDER LT MIN 2V INDICATIONS: left shoulder pain TECHNIQUE: 2 views of the shoulder were acquired. COMPARISON: None. FINDINGS: Bones: There is a minimally displaced fracture of the distal clavicle adjacent to the acromioclavicular joint. The acromioclavicular joint and glenohumeral joint have degenerative changes. Soft tissues: No suspicious soft tissue calcifications. Surgical clips are present in the left axilla. IMPRESSION: Minimally displaced fracture of the left distal clavicle. Dictated by: Elroy Gamez M.D. on 09/22/2021 at 7:48 Approved by: Elroy Gamez M.D. on 09/22/2021 at 7:49
[2021-09-22 06:50] LABS: INR 1.2 (0.9-1.3)
[2021-09-22] MEDS: TET,DIPH,PERTUSS(ACELL),VAC/PF 0.5 ML SYRINGE IM (06:50)
[2021-09-22 06:53] LABS: PTT Partial Thromboplastin Tim 29 SECONDS (26.4-36.2)
[2021-09-22 06:55] LABS: Hemoglobin 11.4 g/dL (12.0-16.0); Mean Corpuscular HGB Conc 34.7 % (30-36); Mean Corpuscular Hemoglobin 40.1 PG (26-34); Mean Corpuscular Volume 115.7 fL (80-100); Platelet Count 131 X10^3/uL (150-400); Red Blood Cell Count 2.85 X10^6/uL (4.0-5.2); Red Cell Distribution Width 14.7 % (11.6-14.8); White Blood Cell Count 7.8 X10^3/uL (4.5-11.0)
[2021-09-22] MEDS: ONDANSETRON 4 MG/2 ML INJ IV (06:55)
[2021-09-22 06:56] LABS: Alanine Aminotransferase 65 IU/L (<35); Albumin 3.8 g/dL (3.5-5.0); Alkaline Phosphatase 116 U/L (38-126); Aspartate Aminotransferase 143 IU/L (14-36); BUN Creatinine Ratio 31.5 (6-22); Bilirubin Total 3.3 mg/dL (0.2-1.3); Blood Urea Nitrogen 64 mg/dL (7-17); Calcium 9.1 mg/dL (8.4-10.2); Carbon Dioxide 21 mmol/L (22-32); Chloride 100 mmol/L (98-107); Estimated Glomerular Filt Rate 24.4 mL/min (>60); Ethanol (ETOH) < 10 mg/dL; Globulin 3.9 g/dL (1.7-4.1); Glucose 64 mg/dL (80-110); HEMOLYSIS < 15 (0-50); Lipase 458 U/L (23-300); Sodium 136 mmol/L (137-145); Total Protein 7.7 g/dL (6.3-8.2)
[2021-09-22 06:58] LABS: Add Manual Diff / Slide Review YES
[2021-09-22] MEDS: SODIUM CHLORIDE 0.9% 1,000 ML 1000 ML IV ×2 (07:23→10:41)
[2021-09-22 07:26] LABS: Macrocytosis 3+; Neutrophils Absolute Manual 6084 /uL (3000-5900); Platelet Estimate Decreased on smear; Total Cells Counted 100
[2021-09-22] MEDS: ONDANSETRON 4 MG/2 ML INJ (08:40)
[2021-09-22 09:47] LABS: Ur Creatinine Normal (Normal); Ur Specific Gravity Normal (Normal); Urine Tetrahydrocannabinol Negative (Negative); Urine pH Normal (Normal)
[2021-09-22 09:48] LABS: UR Morphine/Opiate cutoff 300 Negative (Negative); Urine Amphetamines Negative (Negative); Urine Barbiturates Negative (Negative); Urine Benzodiazepines Negative (Negative); Urine Cocaine Negative (Negative); Urine MDMA Negative (Negative); Urine Methadone Negative (Negative); Urine Methamphetamines Negative (Negative); Urine Oxycodone Negative (Negative); Urine Phencyclidine Negative (Negative); Urine Tricyclic Antidepressant Negative (Negative)
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
[2021-09-22 10:00] LABS: Creatinine Urine Random 77.1 mg/dL; Sodium Urine Random 45 mmol/L (30-90)
[2021-09-22] MEDS: ACETAMINOPHEN 325 MG TABLET 650 MG PO (10:40)
[2021-09-22 10:43] LABS: Appearance Urine UA CLEAR; Bilirubin Urine UA NEGATIVE (NEGATIVE); Color Urine UA YELLOW; Glucose Urine UA TRACE g/dL (Negative); Ketones Urine UA TRACE (NEGATIVE); Leukocyte Esterase Urine UA NEGATIVE (NEGATIVE); Nitrite Urine UA NEGATIVE (Negative); Occult Blood Urine UA 3+ (Negative); Protein Urine UA NEGATIVE (Negative); RBC Urine 1-5/HPF (0-5/HPF); Squamous Epithelial Cell Urine 10-30 /HPF (0-5/HPF); WBC Urine 1-5/HPF (0-5/HPF)
[2021-09-22 10:44] LABS: Bacteria Urine Moderate (10-30); Culture Indicated Urine Cult Not Indicated
[2021-09-22 10:57] LABS: Hematocrit 31.3 % (36-46); Hemoglobin 10.9 g/dL (12.0-16.0)
[2021-09-22 11:10] LABS: Alanine Aminotransferase 59 IU/L (<35); Albumin 3.4 g/dL (3.5-5.0); Albumin Globulin Ratio 0.9 (1.0-2.8); Alkaline Phosphatase 99 U/L (38-126); Aspartate Aminotransferase 132 IU/L (14-36); Bilirubin Total 3.4 mg/dL (0.2-1.3); Blood Urea Nitrogen 62 mg/dL (7-17); Calcium 8.5 mg/dL (8.4-10.2); Carbon Dioxide 21 mmol/L (22-32); Chloride 100 mmol/L (98-107); Estimated Glomerular Filt Rate 26.7 mL/min (>60); Globulin 3.8 g/dL (1.7-4.1); Glucose 87 mg/dL (80-110); HEMOLYSIS < 15 (0-50); Potassium 4.1 mmol/L (3.4-5.1); Sodium 133 mmol/L (137-145); Total Protein 7.2 g/dL (6.3-8.2)
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
--- NOTE | 2021-09-22 12:00 | PC.NURSE ---
This WEB[employer] COMMERCE DEVELOPER was already in the room to assist pt with ADL. Doctor came in and stated that he would need to do a rectal exam. This pt stayed in the room to sales and marketing agent procedure. This WEB[employer] COMMERCE DEVELOPER assisted pt with turning to the side, doctor explained the procedure in great detail, doctor provided the pt care, then this [employer] COMMERCE DEVELOPER and doctor repositioned pt in bed. Warm blankets were placed on pt, call light within reach, pt remains in bed with head of the bed to pt's comfort.
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
[2021-09-22 14:01] LABS: COVID19 - ADMIT (NP swab/PCR) Negative (Negative)
[2021-09-22] MEDS: SODIUM CHLORIDE 0.9% 1,000 ML 100 ML IV ×2 (14:18→21:35)
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
[2021-09-22] MEDS: methocarbamoL 500 MG TABLET PO ×2 (15:17→20:10)
[2021-09-22] MEDS: GABAPENTIN 100 MG CAPSULE 200 MG PO ×2 (15:17→20:10)
[2021-09-22] MEDS: TRAMADOL 50 MG TABLET PO ×2 (15:17→20:11)
[2021-09-22 17:44] LABS: Hemoglobin 10.8 g/dL (12.0-16.0)
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
[2021-09-22] MEDS: DOCUSATE 100 MG CAPSULE PO (20:10)
[2021-09-22] MEDS: SENNOSIDES 8.6 MG TABLET 17.2 MG PO (20:10)
[2021-09-22] MEDS: METOPROLOL IR 50 MG TABLET PO (20:11)
[2021-09-22] MEDS: polyethylene glycoL 3350 17 GM POWD.PACK PO (20:11)
[2021-09-22] MEDS: PANTOPRAZOLE 40 MG VIAL 20 MG IV (20:11)
[2021-09-22 23:20] LABS: Hematocrit 26.1 % (36-46); Hemoglobin 9.2 g/dL (12.0-16.0)
[2021-09-23] VITALS (12 sets, daily range): BP systolic 109–134; BP diastolic 52–73; PULSE 63–74; RESP 16–18; TEMP 36.2–37.1; O2SAT 95–99
[2021-09-23] MEDS: ACETAMINOPHEN 325 MG TABLET 650 MG PO ×2 (03:44→22:12)
[2021-09-23 05:44] LABS: Basophils Absolute Auto 0 /uL (0-100); Basophils Percent Auto 0.8 % (0-2); Eosinophils Absolute Auto 100 /uL (0-450); Eosinophils Percent Auto 1.6 % (2-4); Hematocrit 26.4 % (36-46); Hemoglobin 9.2 g/dL (12.0-16.0); Lymphocytes Absolute Auto 700 /uL (1100-4500); Lymphocytes Percent Auto 18.3 % (25-40); Mean Corpuscular Volume 114.3 fL (80-100); Monocytes Absolute Auto 400 /uL (0-900); Monocytes Percent Auto 9.7 % (3-14); Neutrophils Absolute Auto 2900 /uL (1500-7000); Neutrophils Percent Auto 69.6 % (50-75); Platelet Count 80 X10^3/uL (150-400); Red Blood Cell Count 2.31 X10^6/uL (4.0-5.2); Red Cell Distribution Width 14.8 % (11.6-14.8); White Blood Cell Count 4.1 X10^3/uL (4.5-11.0)
[2021-09-23 05:45] LABS: Lipase 384 U/L (23-300)
[2021-09-23 05:46] LABS: Magnesium 1.2 mg/dL (1.6-2.3); Phosphorous 2.6 mg/dL (2.8-4.1)
[2021-09-23 05:58] LABS: Add Manual Diff / Slide Review SLIDE REVIEW
[2021-09-23 07:45] LABS: Platelet Estimate Decreased on smear
[2021-09-23 07:46] LABS: Macrocytosis 3+
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
[2021-09-23] MEDS: GABAPENTIN 100 MG CAPSULE 200 MG PO (09:25)
[2021-09-23] MEDS: ASCORBIC ACID 500 MG TABLET PO (09:25)
[2021-09-23] MEDS: METOPROLOL IR 50 MG TABLET PO ×2 (09:25→22:14)
[2021-09-23] MEDS: methocarbamoL 500 MG TABLET PO (09:25)
[2021-09-23] MEDS: CALCIUM CARB/VIT D3 500/200 TABLET 1 EACH PO (09:25)
[2021-09-23] MEDS: DOCUSATE 100 MG CAPSULE PO ×2 (09:25→20:43)
[2021-09-23] MEDS: TRAMADOL 50 MG TABLET PO (09:25)
[2021-09-23] MEDS: PANTOPRAZOLE 40 MG VIAL 20 MG IV (09:26)
[2021-09-23] MEDS: polyethylene glycoL 3350 17 GM POWD.PACK PO ×2 (09:27→20:47)
[2021-09-23] MEDS: MAGNESIUM CHLORIDE 64 MG TABLET 128 MG PO ×2 (09:28→17:32)
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
--- NOTE | 2021-09-23 10:40 | PT.IPTN ---
Current Diagnoses Acute kidney failure, unspecified (09/22/21) Physical Therapy Treatment Note M2 PT-IP Current Condition Start: 09/22/21 15:25 Freq: NEEDED Status: Active Protocol: Document 09/22/21 14:30 AB (Rec: 09/22/21 15:41 AB [id number]) Physical Therapy Current Condition Current Condition Evaluation Date 09/22/21 Treatment Diagnosis L displaced distal clavicle fx ; difficulty in walking Onset Date 09/22/21 M3 PT-IP Subjective Start: 09/22/21 15:25 Freq: NEEDED Status: Active Protocol: Document 09/23/21 12:01 RBD (Rec: 09/23/21 12:23 RBD [id number]) Subjective Physical Therapy Visit Type Type Treatment Note Visit Start Time 10:20 Visit Stop Time 10:40 Total Visit Minutes 20 Number of MEDIA OPERATOR Visits 1 Physical Therapy Visit Comments Patient Comments Pt amenable to PT treatment Therapy Pain Assessment Pain When Pain Assessed At Rest Pain Present Pain Present Pain Reported Location Generalized Scale Used pain scale not stated Pain Management Techniques Distraction,Modification of Treatment,Re-positioning, Timing of Activity with Medications M4 PT-IP Mobility and Gait Start: 09/22/21 15:25 Freq: NEEDED Status: Active Protocol: Document 09/23/21 12:01 RBD (Rec: 09/23/21 12:23 RBD [id number]) PT-Bed Mobility Assessment Supine to Sit Supine to Sit Moderate Assistance,Head of Bed Elevated,Bedrails Sit to Supine Sit to Supine Moderate Assistance,1 Person Assistance,Head of Bed Elevated Scooting Scooting to Edge of Bed Maximum Assistance PT-Transfer Assessment Sit to and From Stand Sit to and from Stand Moderate Assistance,Maximum Assistance,1 Person Assistance ,Use of Upper Extremities Equipment Transfer Assistive Device Large Based Quad Cane Orthotic/Prosthetic Devices or Brace: Yes Comments Mobility Comments Pt wearing sling and in bed upon arrival. Pt completed supine<> sit w/ head elevated and mod A and mod verbal cues. Mod A for scooting EOB. CGA for sitting at EOB. Mod A and Mod verbal cues for sit<>stand w/ quad cane. She verbalized dizziness. Mod A for stand<> sit. Stated dizziness reduced. Patient able to perform 5 sit <>stands w/o increase in dizziness or pain. Pt performed lateral weight shift w/ Max A. Pt unable to perform standing marches. Mod A for stand <> sit. Performed seated knee extensions x10, seated marches x10, glut sets x10. Mod A for seated to supine. Max A for bed positioning. Bed alarm on, call light and all need left in reach. PT-Balance Assessment Sitting Balance and Reactions Static Sitting Balance Ability Good Dynamic Sitting Balance Ability Fair Standing Balance and Reactions Static Standing Balance Ability Poor Dynamic Standing Balance Ability Poor Device Used Quad cane M5 PT-IP Objective Assessments Start: 09/22/21 15:25 Freq: NEEDED Status: Active Protocol: Document 09/22/21 14:30 AB (Rec: 09/22/21 15:41 AB [id number]) Orientation Orientation/Cognition Level of Alertness Alert Orientation Name Language Function Ability No Deficits Noted Safety Awareness Decreased Safety Awareness Gross Range of Motion Lower Extremity ROM Assessment Within Functional Limits Strength Lower Extremity Strength Assessment Bilaterally Impaired Hip 3+/5 Knee 3+/5 Coordination Assessment Gross Coordination Gross Coordination WNL Sensation Assessment Sensation Gross Sensation WNL Muscle Tone Muscle Tone WNL Yes M6 PT-IP Treatment Start: 09/22/21 15:25 Freq: NEEDED Status: Active Protocol: Document 09/23/21 12:01 RBD (Rec: 09/23/21 12:23 RBD [id number]) Physical Therapy Treatment Exercises Exercises Gluteal Sets,Seated Knee Flexion/Extension Education Education Provided Precautions,Weight Bearing Status,Safety M7 PT-IP Assessment and Plan Start: 09/22/21 15:25 Freq: NEEDED Status: Active Protocol: Document 09/23/21 12:01 RBD (Rec: 09/23/21 12:23 RBD [id number]) PT Summary Assessment and Plan Potential Rehabilitation Potential Fair Status of Condition at Evaluation Evolving Summary Impairments Pain,ROM,Strength,Balance, Coordination,Sensation,Tone, Cognition,Bed Mobility, Transfers,Gait,Activity Tolerance Assessment Summary Pt requires mod to max A and mod cues for sit<>stand and bed mobility. She c/o of fatigue possibly from pain medication following treatment . Pt would benefit from SNF rehab to improve strength for safe ambulation. Goals Bed Mobility Goal Standby Assistance Transfer Goal Standby Assistance,Cane Gait Goal Standby Assistance,Cane Gait Distance 100 Other Goals improve ambulation using SPC 200 ft SBA up/down 3 steps L rail SBA Days to Meet Goals 10 Frequency of Treatment Frequency Of Treatment Once a Day Treatment Plan Physical Therapy Treatment Plan Bed Mobility Training,Transfer Training,Gait Training, Therapeutic Exercise,Balance Retraining,Discharge Planning, Hot or Cold Pack,Neuromuscular Re-ed,Coordination Retraining Precautions Shoulder Precautions Sling Recommendations To Nursing Amount of Assist Needed 1 Person Assist Discharge Recommendations PT Discharge Recommendations SNF Rehab Transportation Needs at Discharge Wheelchair/Cabulance
--- NOTE | 2021-09-23 11:47 | PC.NURSE ---
Addendum entered by Christin Villegas R.N. 09/23/21 15:27: Patient states that she does not want her gabapentin, robaxon, or tramadol as it makes her feel to out of it. She wants to take tylenol only at this time. She was just given a bed bath and got her hair washed. She states that she is feeling better. Patient has flat affect but is pleasant and cooperative with all staff. Addendum entered by Christin Villegas R.N. 09/23/21 14:22: Patient is resting comfortably. She denies pain or discomfort. Original Note: Patient is alert and oriented x3, she is very pleasant and cooperative with care. She has a sling on the left arm for her clavicle fx that she is tolerating well. Patient has two black eyes, and multiple bruises on her legs and arms. Up with one person assist to the bsc. She is resting now and ivf have been d/cd
[2021-09-23 12:29] LABS: Alanine Aminotransferase 55 IU/L (<35); Albumin 2.8 g/dL (3.5-5.0); Albumin Globulin Ratio 0.8 (1.0-2.8); Alkaline Phosphatase 78 U/L (38-126); Aspartate Aminotransferase 141 IU/L (14-36); Bilirubin Total 2.6 mg/dL (0.2-1.3); Blood Urea Nitrogen 57 mg/dL (7-17); Calcium 7.9 mg/dL (8.4-10.2); Carbon Dioxide 22 mmol/L (22-32); Chloride 106 mmol/L (98-107); Estimated Glomerular Filt Rate 35.7 mL/min (>60); Globulin 3.4 g/dL (1.7-4.1); Glucose 95 mg/dL (80-110); HEMOLYSIS 23 (0-50); Potassium 3.9 mmol/L (3.4-5.1); Sodium 134 mmol/L (137-145); Total Protein 6.2 g/dL (6.3-8.2)
[2021-09-23] MEDS: SUCRALFATE 1 GM TABLET PO ×3 (13:02→20:44)
[2021-09-23] MEDS: FAMOTIDINE 20 MG TABLET PO (13:03)
[2021-09-23] MEDS: SENNOSIDES 8.6 MG TABLET 17.2 MG PO (20:43)
[2021-09-24] VITALS (14 sets, daily range): BP systolic 120–143; BP diastolic 66–83; PULSE 59–73; RESP 12–18; TEMP 36.2–36.9; O2SAT 98–100
[2021-09-24 06:19] LABS: Basophils Absolute Auto 0 /uL (0-100); Basophils Percent Auto 0.5 % (0-2); Eosinophils Absolute Auto 0 /uL (0-450); Eosinophils Percent Auto 1.1 % (2-4); Hematocrit 28.4 % (36-46); Hemoglobin 9.8 g/dL (12.0-16.0); Lymphocytes Absolute Auto 500 /uL (1100-4500); Lymphocytes Percent Auto 10.6 % (25-40); Mean Corpuscular HGB Conc 34.7 % (30-36); Mean Corpuscular Hemoglobin 39.8 PG (26-34); Mean Corpuscular Volume 114.8 fL (80-100); Monocytes Absolute Auto 400 /uL (0-900); Monocytes Percent Auto 8.2 % (3-14); Neutrophils Absolute Auto 3400 /uL (1500-7000); Neutrophils Percent Auto 79.6 % (50-75); Platelet Count 80 X10^3/uL (150-400); Red Blood Cell Count 2.47 X10^6/uL (4.0-5.2); Red Cell Distribution Width 14.6 % (11.6-14.8); White Blood Cell Count 4.3 X10^3/uL (4.5-11.0)
[2021-09-24 06:20] LABS: Add Manual Diff / Slide Review SLIDE REVIEW
[2021-09-24 06:29] LABS: Magnesium 1.3 mg/dL (1.6-2.3)
[2021-09-24] MEDS: ONDANSETRON 4 MG/2 ML INJ IV ×2 (06:31→13:22)
[2021-09-24 06:32] LABS: Lipase 487 U/L (23-300)
[2021-09-24 07:36] LABS: Anisocytosis 1+
[2021-09-24] MEDS: ACETAMINOPHEN 325 MG TABLET 650 MG PO (10:00)
[2021-09-24] MEDS: polyethylene glycoL 3350 17 GM POWD.PACK PO (10:00)
[2021-09-24] MEDS: DOCUSATE 100 MG CAPSULE PO (10:03)
[2021-09-24] MEDS: FAMOTIDINE 20 MG TABLET PO (10:03)
[2021-09-24] MEDS: SUCRALFATE 1 GM TABLET PO ×4 (10:03→20:32)
[2021-09-24] MEDS: METOPROLOL IR 50 MG TABLET PO ×2 (10:04→20:32)
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
[2021-09-24] MEDS: CALCIUM CARB/VIT D3 500/200 TABLET 1 EACH PO (10:07)
[2021-09-24] MEDS: ASCORBIC ACID 500 MG TABLET PO (10:07)
[2021-09-24] MEDS: SODIUM,POTASSIUM PHOSPHATES PACKET 2 EACH PO (11:44)
[2021-09-24] MEDS: METOCLOPRAMIDE 10 MG/2 ML INJ 5 MG IV (11:45)
[2021-09-24] MEDS: MAGNESIUM SULFATE 2 GM/50 ML PIGGYBACK IV (11:45)
--- NOTE | 2021-09-24 13:07 | PT.IPTN ---
Current Diagnoses Acute kidney failure, unspecified (09/22/21) Physical Therapy Treatment Note M2 PT-IP Current Condition Start: 09/22/21 15:25 Freq: NEEDED Status: Active Protocol: Document 09/22/21 14:30 [facility] (Rec: 09/22/21 15:41 [facility] [id number]) Physical Therapy Current Condition Current Condition Evaluation Date 09/22/21 Treatment Diagnosis L displaced distal clavicle fx ; difficulty in walking Onset Date 09/22/21 M3 PT-IP Subjective Start: 09/22/21 15:25 Freq: NEEDED Status: Active Protocol: Document 09/24/21 12:56 [facility] (Rec: 09/24/21 13:31 [facility] [id number]) Subjective Physical Therapy Visit Type Type Treatment Note Visit Start Time 12:56 Visit Stop Time 13:07 Total Visit Minutes 11 Number of TRUST OFFICER Visits 2 Physical Therapy Visit Comments Patient Comments Pt amenable to PT treatment Therapy Pain Assessment Pain When Pain Assessed At Rest Pain Present Pain Present Pain Reported M4 PT-IP Mobility and Gait Start: 09/22/21 15:25 Freq: NEEDED Status: Active Protocol: Document 09/24/21 12:56 [facility] (Rec: 09/24/21 13:31 [facility] [id number]) PT-Transfer Assessment Comments Mobility Comments Pt reporting high level of fatigue today and did not want to get out of bed this PM, but was agreeable to completing some exercises today. Pt able to complete LE exercises including 1x10 ankle pumps, quad sets, glute sets, heel slides and 1x5 SLR. Pt had difficulty performing exercises due to fatigue and weakness. Left in bed w/ alarm on and all needs in reach. Gait Assessment Comments Gait Comments Pt refused. M5 PT-IP Objective Assessments Start: 09/22/21 15:25 Freq: NEEDED Status: Active Protocol: Document 09/22/21 14:30 [facility] (Rec: 09/22/21 15:41 [facility] [id number]) Orientation Orientation/Cognition Level of Alertness Alert Orientation Name Language Function Ability No Deficits Noted Safety Awareness Decreased Safety Awareness Gross Range of Motion Lower Extremity ROM Assessment Within Functional Limits Strength Lower Extremity Strength Assessment Bilaterally Impaired Hip 3+/5 Knee 3+/5 Coordination Assessment Gross Coordination Gross Coordination WNL Sensation Assessment Sensation Gross Sensation WNL Muscle Tone Muscle Tone WNL Yes M6 PT-IP Treatment Start: 09/22/21 15:25 Freq: NEEDED Status: Active Protocol: Document 09/24/21 12:56 [facility] (Rec: 09/24/21 13:31 [facility] [id number]) Physical Therapy Treatment Exercises Exercises Ankle Pumps,Gluteal Sets,Quad Sets,Heel Slides,Straight Leg Raises Education Education Provided Precautions,Weight Bearing Status,Safety M7 PT-IP Assessment and Plan Start: 09/22/21 15:25 Freq: NEEDED Status: Active Protocol: Document 09/24/21 12:56 [facility] (Rec: 09/24/21 13:31 [facility] [id number]) PT Summary Assessment and Plan Potential Rehabilitation Potential Fair Status of Condition at Evaluation Evolving Summary Impairments Pain,ROM,Strength,Balance, Coordination,Sensation,Tone, Cognition,Bed Mobility, Transfers,Gait,Activity Tolerance Progress Towards Goals Slow Progress due to Pain,Slow Progress due to Activity Tolerance Assessment Summary Pt reporting high level of fatigue today and only agreeable to performing exercises in bed. She had difficulty performing SLR due to weakness. She has noone to assist her at home and will need SNF to improve strength and functional mobility independence. Goals Bed Mobility Goal Standby Assistance Transfer Goal Standby Assistance,Cane Gait Goal Standby Assistance,Cane Gait Distance 100 Other Goals improve ambulation using SPC 200 ft SBA up/down 3 steps L rail SBA Days to Meet Goals 10 Frequency of Treatment Frequency Of Treatment Once a Day Treatment Plan Physical Therapy Treatment Plan Bed Mobility Training,Transfer Training,Gait Training, Therapeutic Exercise,Balance Retraining,Discharge Planning, Hot or Cold Pack,Neuromuscular Re-ed,Coordination Retraining Precautions Shoulder Precautions Sling Weight Bearing Status Weight Bearing Status Non-Weight Bearing Allowed Weight Bearing Amount (enter % LUE: NWB or #) (%) Recommendations To Nursing Amount of Assist Needed 1 Person Assist Discharge Recommendations PT Discharge Recommendations SNF Rehab Transportation Needs at Discharge Wheelchair/Cabulance
--- NOTE | 2021-09-24 13:25 | CM.DANOTE ---
DCP/continued: Reviewed chart. Placed call to Julita Salas re: SNF authorization? Per Julita she could not find patient in their system? Julita reports that she will look into this? Notified Josue that patient is medically stable and current recommendation is SNF. P: Pending. NEGRA
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
[2021-09-24] MEDS: SODIUM CHLORIDE 0.9% FLUSH 10 ML IV (20:32)
[2021-09-24 23:14] LABS: BUN Creatinine Ratio 30.8 (6-22); Blood Urea Nitrogen 32 mg/dL (7-17); Calcium 8.8 mg/dL (8.4-10.2); Carbon Dioxide 30 mmol/L (22-32); Chloride 103 mmol/L (98-107); Estimated Glomerular Filt Rate 52.9 mL/min (>60); Glucose 112 mg/dL (80-110); HEMOLYSIS < 15 (0-50); Magnesium 1.6 mg/dL (1.6-2.3); Potassium 3.5 mmol/L (3.4-5.1); Sodium 136 mmol/L (137-145)
--- NOTE | 2021-09-24 23:30 | PC.NURSE ---
Patient is alert and oriented. Breath sounds diminished throughout with RA sat of 100%. HRR w/telemetry reading of SR. Had problem with nausea on previous shift but denies feeling nauseated at time of assessment. BT present and is passing flatus. Denied dysuria, frequency or urgency with urination. Is up to BSC with quad cane and 1 assist. Bruising noted on face, chest, and bilateral LE. Abrasions on nose, right UE and left knee. Denied pain and declined scheduled Tramadol and Robaxin. At 2220 STRIP PICKER reported patient had a 13 beat run of v-tach at 2212. BP at that time was 112/63 with HR of 71. Dr. Mittal informed and order received to draw BM and Mg which was done per CARMELA Gr and sent to lab. Patient denied any chest pain, palpitations or SOB. Refusing to wear SCD's so reminded to ankle wave. Fall risk score is high and bed alarm is activated.
[2021-09-25] MEDS: MAGNESIUM SULFATE 2 GM/50 ML PIGGYBACK IV (03:39)
[2021-09-25] MEDS: SODIUM CHLORIDE 0.9% FLUSH 10 ML IV ×2 (03:40→09:25)
[2021-09-25 04:31] VITALS: BP 138/69; PULSE 74; RESP 18; TEMP 36.6; O2SAT 99
[2021-09-25 05:59] LABS: Basophils Absolute Auto 0 /uL (0-100); Basophils Percent Auto 0.5 % (0-2); Eosinophils Absolute Auto 100 /uL (0-450); Eosinophils Percent Auto 1.9 % (2-4); Hematocrit 32.2 % (36-46); Hemoglobin 11.2 g/dL (12.0-16.0); Lymphocytes Absolute Auto 1000 /uL (1100-4500); Lymphocytes Percent Auto 13.8 % (25-40); Mean Corpuscular HGB Conc 34.7 % (30-36); Mean Corpuscular Hemoglobin 39.6 PG (26-34); Mean Corpuscular Volume 114.2 fL (80-100); Monocytes Absolute Auto 700 /uL (0-900); Monocytes Percent Auto 10.7 % (3-14); Neutrophils Absolute Auto 5100 /uL (1500-7000); Neutrophils Percent Auto 73.1 % (50-75); Platelet Count 106 X10^3/uL (150-400); Red Blood Cell Count 2.82 X10^6/uL (4.0-5.2); White Blood Cell Count 6.9 X10^3/uL (4.5-11.0)
[2021-09-25 06:04] LABS: Magnesium 2.2 mg/dL (1.6-2.3); Phosphorous 2.5 mg/dL (2.8-4.1)
[2021-09-25 06:05] LABS: Add Manual Diff / Slide Review SLIDE REVIEW
[2021-09-25 07:15] LABS: Anisocytosis 2+; Macrocytosis 2+
[2021-09-25 07:23] VITALS: O2SAT 98
[2021-09-25 07:30] VITALS: BP 119/71; PULSE 69; RESP 18; TEMP 36.5; O2SAT 99
[2021-09-25 09:10] VITALS: O2SAT 99
[2021-09-25] MEDS: ASCORBIC ACID 500 MG TABLET PO (09:19)
[2021-09-25] MEDS: ACETAMINOPHEN 325 MG TABLET 650 MG PO (09:24)
[2021-09-25] MEDS: FAMOTIDINE 20 MG TABLET PO (09:24)
[2021-09-25] MEDS: SUCRALFATE 1 GM TABLET PO ×2 (09:24→12:02)
[2021-09-25] MEDS: polyethylene glycoL 3350 17 GM POWD.PACK PO (09:24)
[2021-09-25] MEDS: TRAMADOL 50 MG TABLET PO (09:25)
[2021-09-25] MEDS: METOPROLOL IR 50 MG TABLET PO (09:25)
[2021-09-25] MEDS: CALCIUM CARB/VIT D3 500/200 TABLET 1 EACH PO (09:25)
--- NOTE | 2021-09-25 09:45 | PT.IPTN ---
Current Diagnoses Acute kidney failure, unspecified (09/22/21) Physical Therapy Treatment Note M2 PT-IP Current Condition Start: 09/22/21 15:25 Freq: NEEDED Status: Active Protocol: Document 09/22/21 14:30 AB (Rec: 09/22/21 15:41 AB [id number]) Physical Therapy Current Condition Current Condition Evaluation Date 09/22/21 Treatment Diagnosis L displaced distal clavicle fx ; difficulty in walking Onset Date 09/22/21 M3 PT-IP Subjective Start: 09/22/21 15:25 Freq: NEEDED Status: Active Protocol: Document 09/25/21 09:21 KS (Rec: 09/25/21 10:53 KS [id number]) Subjective Physical Therapy Visit Type Type Treatment Note Visit Start Time 09:21 Visit Stop Time 09:45 Total Visit Minutes 324 Number of IMPLEMENTATION SPECIALIST PAYROLL Visits 3 Physical Therapy Visit Comments Patient Comments Pt amenable to PT treatment M4 PT-IP Mobility and Gait Start: 09/22/21 15:25 Freq: NEEDED Status: Active Protocol: Document 09/25/21 09:21 KS (Rec: 09/25/21 10:53 KS [id number]) PT-Bed Mobility Assessment Scooting Scooting to Edge of Bed Contact Guard Assistance PT-Transfer Assessment Sit to and From Stand Sit to and from Stand Minimal Assistance,Moderate Assistance,1 Person Assistance ,Use of Upper Extremities Equipment Transfer Assistive Device Large Based Quad Cane Orthotic/Prosthetic Devices or Brace: Yes Transfers Transfer Destination Bed,Toilet Transfer Technique pt ambulated w/ LBQC Transfer Ability Level of Assist Minimal Assistance,Moderate Assistance,1 Person Assistance ,Use of Upper Extremities Comments Mobility Comments Pt in chair upon arrival and reporting feeling slightly better today and agreeable to try ambulating. CGA for scooting to EOC, Mod A and cues for sit<>Stand w/ LBQC. Pt reported feeling weak upon standing and performed 30 seconds weight shifting and marching in place prior to ambulation. She then ambulated ~30 ft around room CGA w/ LBQC. Pt ambulated slowly and cautiously w/ decreased stride and foot clearance. She then stand<>sit EOB Min A and requested to use toilet. Min A for sit<>stand from low bed and CGA for additional ~10 ft ambulation to bathroom. Pts luther increased during ambulation to bathroom. Pt left in bathroom w/ RN in room . Gait Assessment Gait Gait Assistance Required: Contact Guard Assist,1 Person Assist Distance (Feet) 40 Assistive Devices Assistive Device Gait Belt,Large Based Quad Cane Orthotic/Prosthetic Devices or Brace: Yes Gait Deviations General Gait Pattern Decreased Stride Length, Decreased Feet Clearance Factors Limiting Gait Function Factors Limiting Gait Function Decreased Activity Tolerance, Decreased Strength,Pain Comments Gait Comments Please refer to mobility section for details. PT-Balance Assessment Sitting Balance and Reactions Static Sitting Balance Ability Good Dynamic Sitting Balance Ability Fair Standing Balance and Reactions Static Standing Balance Ability Good Dynamic Standing Balance Ability Fair Device Used LBQC M5 PT-IP Objective Assessments Start: 09/22/21 15:25 Freq: NEEDED Status: Active Protocol: Document 09/22/21 14:30 AB (Rec: 09/22/21 15:41 AB [id number]) Orientation Orientation/Cognition Level of Alertness Alert Orientation Name Language Function Ability No Deficits Noted Safety Awareness Decreased Safety Awareness Gross Range of Motion Lower Extremity ROM Assessment Within Functional Limits Strength Lower Extremity Strength Assessment Bilaterally Impaired Hip 3+/5 Knee 3+/5 Coordination Assessment Gross Coordination Gross Coordination WNL Sensation Assessment Sensation Gross Sensation WNL Muscle Tone Muscle Tone WNL Yes M6 PT-IP Treatment Start: 09/22/21 15:25 Freq: NEEDED Status: Active Protocol: Document 09/25/21 09:21 KS (Rec: 09/25/21 10:53 SD [id number]) Physical Therapy Treatment Education Education Provided Precautions,Weight Bearing Status,Safety M7 PT-IP Assessment and Plan Start: 09/22/21 15:25 Freq: NEEDED Status: Active Protocol: Document 09/25/21 09:21 KS (Rec: 09/25/21 10:53 SD [id number]) PT Summary Assessment and Plan Potential Rehabilitation Potential Fair Status of Condition at Evaluation Evolving Summary Impairments Pain,ROM,Strength,Balance, Coordination,Sensation,Tone, Cognition,Bed Mobility, Transfers,Gait,Activity Tolerance Progress Towards Goals Slow Progress due to Pain,Slow Progress due to Activity Tolerance Assessment Summary Pt showed improvements w/ mobility and tolerance for activity today, but remains limited by weakness and pain. She was able to progress sit<> Stand from Mod to Min A and ambulate ~40 ft w/ SPQC w/ her gait improving w/ distance. Pt still has quick approach o fatigue and requires cues and assist during transfers and ambulation and is not safe to return home and will require SNF to improve functional independence. Goals Bed Mobility Goal Standby Assistance Transfer Goal Standby Assistance,Cane Gait Goal Standby Assistance,Cane Gait Distance 100 Other Goals improve ambulation using SPC 200 ft SBA up/down 3 steps L rail SBA Days to Meet Goals 10 Frequency of Treatment Frequency Of Treatment Once a Day Treatment Plan Physical Therapy Treatment Plan Bed Mobility Training,Transfer Training,Gait Training, Therapeutic Exercise,Balance Retraining,Discharge Planning, Hot or Cold Pack,Neuromuscular Re-ed,Coordination Retraining Precautions Shoulder Precautions Sling Weight Bearing Status Weight Bearing Status Non-Weight Bearing Allowed Weight Bearing Amount (enter % LUE: NWB or #) (%) Recommendations To Nursing Amount of Assist Needed 1 Person Assist Discharge Recommendations PT Discharge Recommendations SNF Rehab Transportation Needs at Discharge Wheelchair/Cabulance
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
--- NOTE | 2021-09-25 10:43 | CM.DPNOTE ---
Addendum entered by Eduarda Mcneal 09/25/21 12:28: Faxed neg. covid result to and called March to follow up on 1330 transport. She confirmed the time. I then relayed this information to the nurse Vic. Eduarda Mcneal CM Asst. Original Note: Per Linda, faxed final SNF referral packet to and received confirm. Eduarda Mcneal CM Asst.
--- NOTE | 2021-09-25 11:11 | OT.IP.TRT ---
Current Diagnoses Acute kidney failure, unspecified (09/22/21) Occupational Therapy Treatment Note M2 OT-IP Current Condition Start: 09/24/21 10:31 Freq: Status: Active Protocol: Document 09/24/21 09:28 [facility] (Rec: 09/24/21 10:54 [facility] [id number]) Occupational Therapy Current Condition Current Condition Evaluation Date 09/24/21 Treatment Diagnosis Left distal clavical fx, decreased mobility Diagnosis Onset Date 09/22/21 Post Operative Precautions Shoulder Precautions Sling Weight Bearing Status Weight Bearing Status Non-Weight Bearing Allowed Weight Bearing Amount (enter % LUE NWB or #) (%) M3 OT- IP Subjective and Pain Start: 09/24/21 10:31 Freq: Status: Active Protocol: Document 09/25/21 10:28 [facility] (Rec: 09/25/21 11:45 [facility] [id number]) OT- Subjective Occupational Therapy Visit Type Type Treatment Note Visit Start Time 10:28 Visit Stop Time 11:11 Total Visit Minutes 43 Occupational Therapy Visit Comments Patient Comments Pt wanting to sponge off versus too tired to shower at this time. Patient/Caregiver Goals To go to rehab. OT Pain Assessment Pain When Pain Assessed At Rest Pain Present Pain Present Pain Reported M4 OT- IP ADL's Start: 09/24/21 10:31 Freq: Status: Active Protocol: Document 09/25/21 10:28 [facility] (Rec: 09/25/21 11:45 [facility] [id number]) OT ADL-Grooming General Evaluation Grooming Ability Standby Assistance Areas Needing Assistance Retrieving/Set-up of Grooming Items Comments OT Grooming Comments Able to do after set-up while sitting at the edge of the bed . OT ADL-Dressing General Eval Upper Body Dressing Ability Maximum Assistance Lower Body Dressing Ability Maximum Assistance Comments OT Dressing Comments Assist to help get clothing over her feet and for slippers . Pt able to practice use of corporate secretary to assist and will benefit from more practice. MAXa for sling management needs and education to linda LUE first and take out last for clothing. OT ADL-Bathing Bathing Type Bathing Type Sponge Bath General Evaluation Bathing Ability Moderate Assistance,Maximal Assistance Areas Needing Assistance Wash/Dry Back,Wash/Dry Lower Extremities Comments OT Bathing Comments Pt able to assist for sponge bating needs. M5 OT- IP IADL's Start: 09/24/21 10:31 Freq: Status: Active Protocol: Document 12/20/21 09:28 [facility] (Rec: 09/24/21 10:54 [facility] [id number]) OT-Instrumental Activities of Daily Living Deficits IADL Deficits Identified Deficits Home Safety Awareness Awareness of Need for Assistance at Home Good Awareness Home Safety Comments Pt is aware that she is not able to put weight on her LUE and that she will not be able to care fore herself at this time. Driving Driving Concerns Identified Regarding Safety M6 OT- IP Functional Cognition Start: 09/24/21 10:31 Freq: Status: Active Protocol: Document 09/25/21 10:28 [facility] (Rec: 09/25/21 11:45 [facility] [id number]) Cognitive Factors Limiting Selfcare Function Cognitive Comments Cognitive Assessment Comments Pt appears to be thinking better today. M7 OT- IP Mobility and Balance Start: 09/24/21 10:31 Freq: Status: Active Protocol: Document 09/25/21 10:28 [facility] (Rec: 09/25/21 11:45 [facility] [id number]) OT- Bed Mobility Assessment Rolling Type of Rolling Roll to Right Level of Assistance Standby Assistance,Head of Bed Elevated,Bedrails Supine to Sit Supine to Sit Assist Contact Guard Assistance,Head of Bed Elevated,Bedrails Sit to Supine Sit to Supine Assist Maximum Assistance,1 Person Assistance Scooting Scooting to Edge of Bed Moderate Assistance OT-Transfer Assessment Sit to and From Stand Sit to and from Stand Moderate Assistance,1 Person Assistance Comments Mobility Comments Pt able to come to stand better today with MODA X 1 with the quad cane. OT- Balance Assessment Sitting Balance and Reactions Static Sitting Balance Ability Good Dynamic Sitting Balance Ability Fair Standing Balance and Reactions Static Standing Balance Ability Poor Dynamic Standing Balance Ability Poor M8 OT- IP Objective Assessments Start: 09/24/21 10:31 Freq: Status: Active Protocol: Document 09/24/21 09:28 [facility] (Rec: 09/24/21 10:54 [facility] [id number]) OT Gross Range of Motion Upper Extremity Range of Motion Assessment Bilaterally Impaired ROM Impairments RUE limted at end range. LUE NT OT Strength Upper Extremity Strength Assessment Left Impaired OT-Muscle Tone Assessment Muscle Tone WNL Yes M9 OT- IP Assessment and Plan Start: 09/24/21 10:31 Freq: Status: Active Protocol: Document 09/25/21 10:28 [facility] (Rec: 09/25/21 11:45 [facility] [id number]) OT Summary Assessment and Plan Potential Rehabilitation Potential Good Analytic Complexity at Evaluation Moderate Summary OT Impairments Pain,Range of Motion,Strength, Balance,Functional Cognition, Functional Mobility,Self- Feeding,Grooming,Dressing, Toileting,Bathing,Toilet Transfers,Shower Transfers, Activity Tolerance Progress Towards Goals Progressing Toward Goals Assessment Summary Pt able to tolerate sponge bathing and initiated education of LB dressing equipment needs. Pt looking to go to skilled rehab today. Goals Self-Feeding Goal Independent Grooming Goal Independent Dressing Goal Independent Toileting Goal Independent Bathing Goal Independent Toilet Transfer Goal Independent Shower Transfer Goal Independent Days to Meet Goals 29 Frequency of Treatment Frequency Of Treatment Once a Day Treatment Plan OT Treatment Plan ADL Training,Functional Cognition Training,Functional Mobility,Patient/Family Education,Discharge Planning Discharge Recommendations OT Discharge Recommendations SNF Rehab Transportation Needs at Discharge Wheelchair/Cabulance
[2021-09-25 11:40] VITALS: O2SAT 99
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
[2021-09-25 12:05] LABS: COVID19 -Nasal RAPID Negative (Negative)
[2021-09-25 13:39] VITALS: BMI 34.6
--- NOTE | 2021-09-25 13:40 | PC.NURSE ---
Pt out via w/c by Facility Designee with packed and all belongings. Called report to Rupa with admissions at [facility] and gave report-no further questions.
== END 2021-09-25 13:42 | DRG 683 ==
LOC: ED 12:07 → AC 09-23 08:53
PROVIDERS: Emergency Medicine; Internal Medicine; Admitting Provider Hospitalist; Emergency Provider Emergency Medicine; PCP Physician Assistant; Referring Provider Emergency Medicine; Visit Provider Hospitalist
DX: N17.9 Acute kidney failure, unspecified (principal); K62.5 Hemorrhage of anus and rectum; D62 Acute posthemorrhagic anemia; S42.032A Displaced fracture of lateral end of left clavicle, initial encounter for closed fracture; Y04.8XXA Assault by other bodily force, initial encounter; I10 Essential (primary) hypertension; Z20.822 Contact with and (suspected) exposure to COVID-19; E66.9 Obesity, unspecified; Z68.32 Body mass index [BMI] 32.0-32.9, adult; T14.8XXA Other injury of unspecified body region, initial encounter; S00.93XA Contusion of unspecified part of head, initial encounter; R74.01 Elevation of levels of liver transaminase levels; D69.6 Thrombocytopenia, unspecified; E83.42 Hypomagnesemia; E83.39 Other disorders of phosphorus metabolism
CPT/HCPCS: 36415; 70450; 70486; 71260; 72125; 73030; 74177; 80048; 80053; 80305; 80320; 81001; 82570; 83690; 83735; 84100; 84300; 85007; 85014; 85018; 85025; 85610; 85730; 86850; 86900; 86901; 87635; 90471; 94760; 96361; 96374; 96376; 97110; 97116; 97162; 97166; 97530; 97535; 99285; C9803; 90715; A9270; C9113; J2405; J2765; J3475

== ENCOUNTER 2022-01-30 10:14 | Inpatient (IN) | payer MEDICARE, OTHER, SELFPAY ==
[2022-01-30] VITALS (16 sets, daily range): BP systolic 93–128; BP diastolic 40–78; PULSE 89–107; RESP 7–21; TEMP 36.6–37.1; O2SAT 96–100; BMI 31.0
[2022-01-30 10:51] LABS: Basophils Absolute Auto 0 /uL (0-100); Basophils Percent Auto 0.3 % (0-2); Eosinophils Absolute Auto 0 /uL (0-450); Eosinophils Percent Auto 0.1 % (2-4); Hematocrit 25.5 % (36-46); Hemoglobin 8.7 g/dL (12.0-16.0); Lymphocytes Absolute Auto 1000 /uL (1100-4500); Lymphocytes Percent Auto 12.2 % (25-40); Mean Corpuscular HGB Conc 34.1 % (30-36); Mean Corpuscular Hemoglobin 38.7 PG (26-34); Mean Corpuscular Volume 113.3 fL (80-100); Monocytes Absolute Auto 400 /uL (0-900); Monocytes Percent Auto 5.6 % (3-14); Neutrophils Absolute Auto 6400 /uL (1500-7000); Neutrophils Percent Auto 81.8 % (50-75); Platelet Count 103 X10^3/uL (150-400); Red Blood Cell Count 2.25 X10^6/uL (4.0-5.2); Red Cell Distribution Width 15.7 % (11.6-14.8); White Blood Cell Count 7.9 X10^3/uL (4.5-11.0)
--- NOTE | 2022-01-30 10:52 | DI.RAD.S_ITS ---
PROCEDURE: XR CHEST 1V INDICATIONS: vomiting blood TECHNIQUE: One view of the chest was acquired. COMPARISON: None. FINDINGS: Surgical changes and devices: Surgical clips are seen in left axilla. Lungs and pleura: Lungs are clear. No pleural effusions or pneumothorax. Mediastinum: Mediastinal contours appear normal. Heart size is normal. Bones and chest wall: No suspicious bony lesions. Overlying soft tissues appear unremarkable. IMPRESSION: No acute cardiopulmonary pathology. Dictated by: Lefty Simon M.D. on 01/30/2022 at 11:22 Approved by: Lefty Simon M.D. on 01/30/2022 at 11:27
[2022-01-30 10:56] LABS: Add Manual Diff / Slide Review SLIDE REVIEW
--- NOTE | 2022-01-30 10:58 | ED_ITS ---
HPI - GI Bleed General Chief complaint: GI Bleed Stated complaint: N/V/Dizziness with +orthostatic changes Time Seen by Provider: 01/30/22 10:52 Source: patient and EMS Mode of arrival: EMS History of Present Illness HPI Narrative: Patient is a 67-year-old female who is here for evaluation of 3 days of nausea and vomiting and dizziness. She is also having coffee-ground emesis. Also having dark colored stools. She does have a history of alcohol abuse. Her last drink was several days ago. She stopped drinking because she started to have the symptoms she arrives with today. She still continuing to have nausea despite a mg of Zofran by EMS. She feels lightheaded when she stands up. Having generalized abdominal discomfort. No fevers. No chest pain. No shortness of breath. She has had a blood transfusion in the past but this was secondary to a trauma. She has never had an upper endoscopy or colonoscopy. Related Data Home Medications Medication Instructions Recorded Confirmed calcium carbonate 500 mg-vitamin 1 tab PO DAILY #0 tab 06/17/16 01/30/22 D3 5 mcg (200 unit) tablet (Oyster Shell Calcium-Vitamin D3) ascorbic acid (vitamin C) 500 mg 500 mg PO DAILY 02/20/18 01/30/22 capsule,extended release (Vitamin C) alprazolam 0.5 mg tablet 0.5 mg PO DAILY 01/30/22 01/30/22 chlorthalidone 25 mg tablet 25 mg PO 4-6XD 01/30/22 01/30/22 Previous Rx's Medication Instructions Recorded metoprolol tartrate 50 mg tablet 50 mg PO BID #60 tab 09/25/21 Allergies Allergy/AdvReac Type Severity Reaction Status Date / Time Penicillins [PENICILLINS] Allergy Severe passed out Verified 01/30/22 11:04 as a child codeine [CODEINE] AdvReac Intermediate NAUSEA Verified 01/30/22 11:04 Review of Systems Constitutional Constitutional: Reports as per HPI and Reports system reviewed and no additional complaints, except as documented ENT Ears, Nose, Mouth, and Throat: Reports system reviewed and no additional complaints, except as documented Cardiovascular Cardiovascular: Denies chest pain and Denies dyspnea Respiratory Respiratory: Denies dyspnea Gastrointestinal Gastrointestinal: Reports as per HPI and Reports system reviewed and no additional complaints, except as documented Genitourinary Genitourinary: Denies dysuria Musculoskeletal Musculoskeletal: Reports system reviewed and no additional complaints, except as documented and Reports as per HPI Integumentary/Breasts Skin/Breast: Reports system reviewed and no additional complaints, except as documented Neurologic Neurologic: Reports system reviewed and no additional complaints, except as documented and Reports as per HPI Hematologic/Lymphatic On Anticoagulants: No Allergic/Immunologic Allergic/Immunologic: Reports system reviewed and no additional complaints, except as documented Patient History Medical History Alcohol abuse Hypertension Surgical History History of third molar tooth extraction Status post appendectomy Status post breast lumpectomy Status post surgery (10/27/15) Status post tonsillectomy and adenoidectomy Social History household members: none Smoking Status: Never smoker alcohol intake: current Smoking Status: Never smoker alcohol intake frequency: a few times a month Substance Use Type: does not use Exam Initial Vital Signs Initial Vital Signs: Vital Signs Temperature 98.4 F 01/30/22 10:29 Pulse Rate 91 H 01/30/22 10:29 Respiratory Rate 18 01/30/22 10:29 Blood Pressure 119/78 01/30/22 10:29 Pulse Oximetry 100 01/30/22 10:29 Const General: cooperative and comfortable HENMT Head: normal to inspection and normocephalic Resp Effort & Inspection: normal respiratory effort Auscultation: clear to auscultation bilaterally Cardio Rate: regular rate Rhythm: regular rhythm GI Inspection: normal to inspection and non-distended Palpation: soft, No firm and No tender Skin General: no rashes or lesions noted Neuro General: patient alert, patient awake and moves all extremities Speech: speech normal Extrem General: normal to inspection and capillary refill normal Psych Appearance: grossly normal and well kempt Scores GCS Jackson coma scale eye opening: Spontaneous Mabel coma scale verbal response: Orientated Mabel coma scale motor response: Obey commands Jackson coma scale total score: 15 Course Orders Ordered: ED Orders 01/30/22 10:22 COVID19 -Nasal RAPID/Pre-Proc Stat 01/30/22 10:35 Complete Blood Count AUTO DIFF Stat Comprehensive Metabolic Panel Stat ETOH [Ethanol (ETOH)] Stat Partial Thromboplastin Time Stat Prothrombin Time INR Stat Type and Screen Stat 01/30/22 10:52 XR chest 1V Stat 01/30/22 11:55 Consult to General Surgery Stat Lactated Ringer's (Lactated Ringers) 1,000 mls @ 42 mls/hr IV NOW ONE Stop: 01/31/22 15:04 Last Infusion: 01/30/22 15:18 Dose: 0 mls/hr Documented by: Admin: 01/30/22 15:17 Dose: 42 mls/hr Documented by: JALEESA Pantoprazole Sodium (Pantoprazole 40 Mg Vial) 40 mg IV BID ABRAHAM Discontinued Medications Metoclopramide HCl (Metoclopramide 10 Mg/2 Ml Inj) 10 mg IV NOW ONE Stop: 01/30/22 11:02 Last Admin: 01/30/22 11:16 Dose: 10 mg Documented by: NAE Ondansetron HCl (Ondansetron 4 Mg/2 Ml Inj) 4 mg IV NOW ONE Stop: 01/30/22 13:33 Last Admin: 01/30/22 13:32 Dose: 4 mg Documented by: JOSE Pantoprazole Sodium (Pantoprazole 40 Mg Vial) 40 mg IV NOW ONE Stop: 01/30/22 10:54 Last Admin: 01/30/22 11:16 Dose: 40 mg Documented by: NAE Vital Signs Vital signs: Vital Signs - 8 hr 01/30/22 10:29 01/30/22 10:47 01/30/22 11:00 Temperature 98.4 F Pulse Rate 91 H 93 H 102 H Respiratory Rate 18 13 18 Blood Pressure 119/78 Pulse Oximetry 100 100 99 01/30/22 11:24 01/30/22 11:30 01/30/22 11:46 Temperature Pulse Rate 104 H 100 H 94 H Respiratory Rate 21 17 17 Blood Pressure 103/63 110/61 118/66 Pulse Oximetry 99 99 99 01/30/22 12:00 Temperature Pulse Rate 89 Respiratory Rate 13 Blood Pressure 100/54 L Pulse Oximetry 99 MDM - GI Bleed Lab Data Attestation: I reviewed the patient's lab results. Result diagrams: 01/30/22 10:35 01/30/22 10:35 Labs: Lab Results 04/27/22 04/27/22 04/27/22 Range/Units 10:22 10:35 10:35 WBC 7.9 (4.5-11.0) X10^3/uL RBC 2.25 L (4.0-5.2) X10^6/uL Hgb 8.7 L (12.0-16.0) g/dL Hct 25.5 L (36-46) % MCV 113.3 H (80-100) fL MCH 38.7 H (26-34) PG MCHC 34.1 (30-36) % RDW 15.7 H (11.6-14.8) % Plt Count 103 L (150-400) X10^3/uL Neut % (Auto) 81.8 H (50-75) % Lymph % (Auto) 12.2 L (25-40) % [place] % (Auto) 5.6 (3-14) % Eos % (Auto) 0.1 L (2-4) % Baso % (Auto) 0.3 (0-2) % Neut # (Auto) 6400 (0548-2437) /uL Lymph # (Auto) 1000 L (9207-6421) /uL [place] # (Auto) 400 (0-900) /uL Eos # (Auto) 0 (0-450) /uL Baso # (Auto) 0 (0-100) /uL Platelet Estimate Decreased on smear RBC Morphology See below Anisocytosis 1+ H Macrocytosis 2+ H PT (10.1-12.7) SECONDS INR (0.9-1.3) APTT (26.4-36.2) SECONDS Sodium 141 (137-145) mmol/L Potassium 3.9 (3.4-5.1) mmol/L Chloride 108 H (98-107) mmol/L Carbon Dioxide 25 (22-32) mmol/L BUN 65 H (7-17) mg/dL Creatinine 0.92 (0.52-1.04) mg/dL Estimated GFR > 60 (>60) mL/min BUN/Creatinine Ratio 70.7 H (6-22) Glucose 129 H (80-110) mg/dL Calcium 9.3 (8.4-10.2) mg/dL Total Bilirubin 1.5 H (0.2-1.3) mg/dL AST 43 H (14-36) IU/L ALT 22 (<35) IU/L Alkaline Phosphatase 46 (38-126) U/L Total Protein 6.4 (6.3-8.2) g/dL Albumin 2.6 L (3.5-5.0) g/dL Globulin 3.8 (1.7-4.1) g/dL Albumin/Globulin Ratio 0.7 L (1.0-2.8) Ethyl Alcohol ( - 10) mg/dL SARS-CoV-2 (PCR) Negative (Negative) Blood Type Antibody Screen 01/30/22 01/30/22 01/30/22 Range/Units 10:35 10:35 10:35 WBC (4.5-11.0) X10^3/uL RBC (4.0-5.2) X10^6/uL Hgb (12.0-16.0) g/dL Hct (36-46) % MCV (80-100) fL MCH (26-34) PG MCHC (30-36) % RDW (11.6-14.8) % Plt Count (150-400) X10^3/uL Neut % (Auto) (50-75) % Lymph % (Auto) (25-40) % [place] % (Auto) (3-14) % Eos % (Auto) (2-4) % Baso % (Auto) (0-2) % Neut # (Auto) (1752-2922) /uL Lymph # (Auto) (9462-4368) /uL [place] # (Auto) (0-900) /uL Eos # (Auto) (0-450) /uL Baso # (Auto) (0-100) /uL Platelet Estimate RBC Morphology Anisocytosis Macrocytosis PT 16.0 H (10.1-12.7) SECONDS INR 1.4 H (0.9-1.3) APTT 28 (26.4-36.2) SECONDS Sodium (137-145) mmol/L Potassium (3.4-5.1) mmol/L Chloride (98-107) mmol/L Carbon Dioxide (22-32) mmol/L BUN (7-17) mg/dL Creatinine (0.52-1.04) mg/dL Estimated GFR (>60) mL/min BUN/Creatinine Ratio (6-22) Glucose (80-110) mg/dL Calcium (8.4-10.2) mg/dL Total Bilirubin (0.2-1.3) mg/dL AST (14-36) IU/L ALT (<35) IU/L Alkaline Phosphatase (38-126) U/L Total Protein (6.3-8.2) g/dL Albumin (3.5-5.0) g/dL Globulin (1.7-4.1) g/dL Albumin/Globulin Ratio (1.0-2.8) Ethyl Alcohol < 10 ( - 10) mg/dL SARS-CoV-2 (PCR) (Negative) Blood Type A Positive Antibody Screen Negative Urine Dip Bedside Urine Glucose Negative Bedside Urine Bilirubin - Negative Bedside Urine Ketone - Negative Urine Specific [place] 1.025 Bedside Urine Occult Blood - Negative Bedside Urine pH 6.0 Bedside Urine Protein - Negative Bedside Urine Urobilinogen - Negative Bedside Urine Nitrite - Negative Bedside Urine Leukocytes - Negative Esterase Imaging Data Chest x-ray: Radiologist's Impression: [address] [address] XRay Report Signed Patient: Yi Yeh MR#: [id number] : 1955 Acct:[id number] Age/Sex: 67 / F Date of Service: 01/30/22 Loc: ED Accession Number: [id number] ?? Procedure: XR chest 1V Ordering Provider: Garrett Barboza D.O. PROCEDURE:? XR CHEST 1V ? INDICATIONS:? vomiting blood ? TECHNIQUE:? One view of the chest was acquired.? ? COMPARISON:? None. ? FINDINGS:? ? Surgical changes and devices:? Surgical clips are seen in left axilla. ? Lungs and pleura:? Lungs are clear.? No pleural effusions or pneumothorax.? ? Mediastinum:? Mediastinal contours appear normal.? Heart size is normal.? ? Bones and chest wall:? No suspicious bony lesions.? Overlying soft tissues appear unremarkable.? ? IMPRESSION:? No acute cardiopulmonary pathology. ? ? Dictated by: Lefty Simon M.D. on 01/30/2022 at 11:22 ? ? Approved by: Lefty Simon M.D. on 01/30/2022 at 11:27 ECG Data Attestation: I personally reviewed and interpreted this ECG as follows: Interpretation: Sinus rhythm Occasional PVC Ventricular rate [address] T wave changes MDM Narrative Medical decision making narrative: Patient has did have coffee-ground emesis on her sugar when she arrived. No fevers. Slightly anemic. Not tachycardic. She does have a history of alcohol abuse. She is not currently in withdrawal and has been greater than 72 hours since her last drink per her report. Discussed case with Dr. Wheatley male stated that he would evaluate the patient as a inpatient for potential upper endoscopy. Discussed the case with Dr. Choudhury who will admit for further evaluation treatment. Discuss the need for admission patient. She expressed understanding and agreement. Discharge Plan Departure Patient Disposition: Admitted as Observation Clinical Impression: Hematemesis Qualifiers: Nausea presence: with nausea Qualified Code(s): K92.0 - Hematemesis Admit Date/Time: 01/30/22 12:09 Admit Provider: Kristian Choudhury
[2022-01-30 11:04] LABS: Alanine Aminotransferase 22 IU/L (<35); Albumin 2.6 g/dL (3.5-5.0); Albumin Globulin Ratio 0.7 (1.0-2.8); Alkaline Phosphatase 46 U/L (38-126); Aspartate Aminotransferase 43 IU/L (14-36); BUN Creatinine Ratio 70.7 (6-22); Bilirubin Total 1.5 mg/dL (0.2-1.3); Blood Urea Nitrogen 65 mg/dL (7-17); Calcium 9.3 mg/dL (8.4-10.2); Carbon Dioxide 25 mmol/L (22-32); Chloride 108 mmol/L (98-107); Estimated Glomerular Filt Rate > 60 mL/min (>60); Globulin 3.8 g/dL (1.7-4.1); Glucose 129 mg/dL (80-110); HEMOLYSIS < 15 (0-50); Potassium 3.9 mmol/L (3.4-5.1); Sodium 141 mmol/L (137-145); Total Protein 6.4 g/dL (6.3-8.2)
[2022-01-30 11:14] LABS: Anisocytosis 1+; Macrocytosis 2+; Platelet Estimate Decreased on smear
[2022-01-30] MEDS: PANTOPRAZOLE 40 MG VIAL IV ×2 (11:16→22:30)
[2022-01-30] MEDS: METOCLOPRAMIDE 10 MG/2 ML INJ IV (11:16)
[2022-01-30 11:24] LABS: COVID19 -Nasal RAPID Negative (Negative)
[2022-01-30 12:13] LABS: INR 1.4 (0.9-1.3)
[2022-01-30 12:16] LABS: Ethanol (ETOH) < 10 mg/dL; PTT Partial Thromboplastin Tim 28 SECONDS (26.4-36.2)
[2022-01-30] MEDS: ONDANSETRON 4 MG/2 ML INJ IV (13:32)
--- NOTE | 2022-01-30 13:47 | SUR.PREOP ---
Pt very weak, moves slowly, steady. Slow to answer questions, voice very soft. Poor historian in regards to home medications. Flat affect. States she is very anxious, support given. made aware.
--- NOTE | 2022-01-30 13:49 | SUR.PREOP ---
Pt zofia veronica, Dr. Tamayo made aware, ondansetron given along with cool washcloth placed to forehead and quease ease to bedside.
--- NOTE | 2022-01-30 13:58 | PM.CN ---
History of Present Illness Consult details Chief complaint: N/V/Dizziness with +orthostatic changes Narrative: 67-year-old woman with a history of alcohol use who presents with 2 days of abdominal discomfort nausea and hematemesis. On arrival to the emergency department 01/30 heart rate 100, blood pressure 110/70, hematocrit 26, platelet 103 INR 1.4 not on anticoagulation. She has never had a previous GI bleed. Meds Home Medications and Allergies Home Medications Medication Instructions Recorded Confirmed Type calcium carbonate 500 mg-vitamin 1 tab PO DAILY #0 tab 06/17/16 01/30/22 History D3 5 mcg (200 unit) tablet (Oyster Shell Calcium-Vitamin D3) ascorbic acid (vitamin C) 500 mg 500 mg PO DAILY 02/20/18 01/30/22 History capsule,extended release (Vitamin C) metoprolol tartrate 50 mg tablet 50 mg PO BID #60 tab 09/25/21 01/30/22 Rx alprazolam 0.5 mg tablet 0.5 mg PO DAILY 01/30/22 01/30/22 History chlorthalidone 25 mg tablet 25 mg PO 4-6XD 01/30/22 01/30/22 History Allergies Allergy/AdvReac Type Severity Reaction Status Date / Time Penicillins [PENICILLINS] Allergy Severe passed out Verified 01/30/22 11:04 as a child codeine [CODEINE] AdvReac Intermediate NAUSEA Verified 01/30/22 11:04 Exam Vital Signs (past 8 hours): - 01/30/22 10:29 01/30/22 10:47 01/30/22 11:00 Temperature 98.4 F Pulse Rate 91 H 93 H 102 H Respiratory Rate 18 13 18 Blood Pressure 119/78 Pulse Oximetry 100 100 99 01/30/22 11:24 01/30/22 11:30 01/30/22 11:46 Temperature Pulse Rate 104 H 100 H 94 H Respiratory Rate 21 17 17 Blood Pressure 103/63 110/61 118/66 Pulse Oximetry 99 99 99 01/30/22 12:00 01/30/22 12:30 01/30/22 13:14 Temperature 98 F Pulse Rate 89 89 107 H Respiratory Rate 13 13 20 Blood Pressure 100/54 L 108/58 L 108/72 Pulse Oximetry 99 100 100 Oxygen Delivery Method Room Air Narrative Exam Narrative: General adult female alert oriented no distress Chest nonlabored respirations Abdomen soft nontender Extremities warm well perfused Objective Labs Result Diagrams: 01/30/22 10:35 01/30/22 10:35 Labs: Laboratory Results - last 24 hr 01/30/22 01/30/22 01/30/22 10:22 10:35 10:35 WBC 7.9 RBC 2.25 L Hgb 8.7 L Hct 25.5 L MCV 113.3 H MCH 38.7 H MCHC 34.1 RDW 15.7 H Plt Count 103 L Neut % (Auto) 81.8 H Lymph % (Auto) 12.2 L [place] % (Auto) 5.6 Eos % (Auto) 0.1 L Baso % (Auto) 0.3 Neut # (Auto) 6400 Lymph # (Auto) 1000 L [place] # (Auto) 400 Eos # (Auto) 0 Baso # (Auto) 0 Platelet Estimate Decreased on smear RBC Morphology See below Anisocytosis 1+ H Macrocytosis 2+ H PT INR APTT Sodium 141 Potassium 3.9 Chloride 108 H Carbon Dioxide 25 BUN 65 H Creatinine 0.92 Estimated GFR > 60 BUN/Creatinine Ratio 70.7 H Glucose 129 H Calcium 9.3 Total Bilirubin 1.5 H AST 43 H ALT 22 Alkaline Phosphatase 46 Total Protein 6.4 Albumin 2.6 L Globulin 3.8 Albumin/Globulin Ratio 0.7 L Ethyl Alcohol SARS-CoV-2 (PCR) Negative Blood Type Antibody Screen 01/30/22 01/30/22 01/30/22 10:35 10:35 10:35 WBC RBC Hgb Hct MCV MCH MCHC RDW Plt Count Neut % (Auto) Lymph % (Auto) [place] % (Auto) Eos % (Auto) Baso % (Auto) Neut # (Auto) Lymph # (Auto) [place] # (Auto) Eos # (Auto) Baso # (Auto) Platelet Estimate RBC Morphology Anisocytosis Macrocytosis PT 16.0 H INR 1.4 H APTT 28 Sodium Potassium Chloride Carbon Dioxide BUN Creatinine Estimated GFR BUN/Creatinine Ratio Glucose Calcium Total Bilirubin AST ALT Alkaline Phosphatase Total Protein Albumin Globulin Albumin/Globulin Ratio Ethyl Alcohol < 10 SARS-CoV-2 (PCR) Blood Type A Positive Antibody Screen Negative [facility] Medical History Alcohol abuse Hypertension Surgical History History of third molar tooth extraction Status post appendectomy Status post breast lumpectomy Status post surgery (10/27/15) Status post tonsillectomy and adenoidectomy Social History household members: none Tobacco & Substance Use Smoking Status: Never smoker alcohol intake: current Assessment & Plan Assessment and plan (1) Hematemesis: Qualifiers: Nausea presence: with nausea Qualified Code(s): K92.0 - Hematemesis Status: Acute Plan 67-year-old woman with a upper GI bleed hemodynamically stable. -esophagoduodenoscopy for diagnostic and therapeutic purpose. We discussed technical details of the procedure and its risks including bleeding, intestinal perforation, need for further procedure. Her questions have been answered she is in agreement with this plan. Time Spent With Patient Critical Care time: I spent a total of [] minutes of critical care time on this patient's care today; this time is exclusive of procedural time.
--- NOTE | 2022-01-30 14:48 | PM.OP.EGD ---
Operative Date/Time/Diagnoses Date of procedure: 01/30/22 Time of procedure: 14:49 Pre-op diagnosis: GI bleed Post-op diagnosis: same Procedure & Clinicians Study performed: Esophagoduodenoscopy Same procedure as scheduled: Yes Indications: GI bleed with hematemesis Surgeon: Tobi Tamayo Procedure Notes Procedure in detail: Patient was brought to the operating room placed supine on the table. General anesthesia was induced she was intubated with an endotracheal tube. Time-out was performed. The scope was then placed into the mouth and carefully advanced into the esophagus. The stomach was entered it was notable for mild gastritis and clot but no active bleeding. The pylorus was intubated the duodenum was inspected to the 2nd portion and again had clots within it but no evidence of distinct ulcer or active bleeding. Retroflexion of the scope within the stomach demonstrated a small hiatal hernia. GE junction was seen at 35 cm from the incisors. Scope was withdrawn and patient tolerated the procedure well. Specimen(s): none sent Complications: none Impression: No active hemorrhage Post-procedure Plan for aftercare: Clear liquid diet PPI Disposition: same day surgery
[2022-01-30] MEDS: LACTATED RINGERS 1,000 ML 42 ML IV (15:17)
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
[2022-01-30] MEDS: THIAMINE 200 MG in SODIUM CHLORIDE 0.9% 100 ML 408 ML IV (17:38)
[2022-01-30 22:45] LABS: Hematocrit 23.2 % (36-46)
[2022-01-31] VITALS (46 sets, daily range): BP systolic 90–152; BP diastolic 51–79; PULSE 89–139; RESP 10–24; TEMP 36.8–37.3; O2SAT 93–100
--- NOTE | 2022-01-31 | DI.CT.S_ITS ---
PROCEDURE: CT ABDOMEN PELVIS W CON INDICATIONS: Concern for intra abdominal infection TECHNIQUE: After the administration of oral and IV contrast, axial sections were acquired from the lung bases to the pubic symphysis. Coronal and sagittal reformats were performed. For radiation dose reduction, the following was used: automated exposure control, adjustment of mA and/or kV according to patient size. COMPARISON: [facility], CT, CT CHEST ABD PEL W CON, 09/22/2021, 6:56. [facility], CT, CT ANGIO CHEST PE PROTOCOL, 01/31/2022, 10:09. [facility], CT, CT HEAD/BRAIN WO CON, 01/31/2022, 10:09. [facility], CT, ABDOMEN/PELVIS WITH CONTRAST, 01/08/2008, 9:04. FINDINGS: Image quality: This examination is limited by involuntary motion artifact. Lung bases: Unremarkable. Heart: No significant findings. ABDOMEN: Liver: A 7.5 cm simple appearing right liver cyst is seen. The liver demonstrates normal size and demonstrates no suspicious lesions. Gallbladder: Layering sludge or small gallstones can be seen within the gallbladder. No definite additional signs of cholecystitis can be seen. Biliary ducts: Unremarkable. Pancreas: Unremarkable. Spleen: Unremarkable. Adrenal Glands: Unremarkable. Kidneys and Ureters: Unremarkable. Stomach and Bowel: The tip of the gastric tube can be seen within the distal stomach. No dilated loops of small bowel are seen. Moderate to prominent sigmoid diverticulosis is seen, without findings of active diverticulitis. No additional significant colonic abnormality is seen. Peritoneum: No abnormal intraperitoneal fluid. No free air. Ventral Wall: No hernia. Abdominal Nodes: No retroperitoneal or mesenteric adenopathy by size criteria. Vessels: Aorta and inferior vena cava are normal in size. Atherosclerotic calcification is noted. PELVIS: Pelvic Organs: Calcified uterine fibroids can be seen. There is a left adnexal cyst seen that measures up to 2.7 cm. Bladder: A Trevino catheter is seen, which decompresses the bladder. Pelvic Nodes: No enlarged lymph nodes. Miscellaneous: No inguinal hernias are seen. Bones: Lumbar spine degenerative changes are seen, including a degree of fusion at the L5-S1 level. Mild levoconvex scoliotic curvature is noted. Milder degenerative changes are seen elsewhere. IMPRESSION: No source of infection can be seen. No abscess is seen. The tip of the gastric tube is seen within the distal stomach. Incidental note is made of: Simple appearing right liver cyst Layering sludge or small gallstones Diverticulosis, without active diverticulitis Calcified uterine fibroids 2.7 cm left adnexal cyst L5-S1 level partial fusion Dictated by: Terrell Gonzalez M.D. on 01/31/2022 at 10:44 Approved by: Terrell Gonzalez M.D. on 01/31/2022 at 10:48
[2022-01-31 04:26] LABS: INR 1.4 (0.9-1.3); Prothrombin Time 15.3 SECONDS (10.1-12.7)
[2022-01-31 04:28] LABS: Add Manual Diff / Slide Review SLIDE REVIEW; Basophils Absolute Auto 0 /uL (0-100); Basophils Percent Auto 0.2 % (0-2); Eosinophils Absolute Auto 0 /uL (0-450); Hematocrit 23.4 % (36-46); Hemoglobin 8.1 g/dL (12.0-16.0); Lymphocytes Absolute Auto 1400 /uL (1100-4500); Lymphocytes Percent Auto 9.1 % (25-40); Mean Corpuscular HGB Conc 34.5 % (30-36); Mean Corpuscular Hemoglobin 38.4 PG (26-34); Mean Corpuscular Volume 111.3 fL (80-100); Monocytes Absolute Auto 1600 /uL (0-900); Monocytes Percent Auto 10.4 % (3-14); Neutrophils Absolute Auto 12400 /uL (1500-7000); Neutrophils Percent Auto 80.3 % (50-75); Platelet Count 143 X10^3/uL (150-400); Red Cell Distribution Width 16.6 % (11.6-14.8); White Blood Cell Count 15.5 X10^3/uL (4.5-11.0)
[2022-01-31 04:32] LABS: Albumin 2.8 g/dL (3.5-5.0); Albumin Globulin Ratio 0.8 (1.0-2.8); Alkaline Phosphatase 52 U/L (38-126); Aspartate Aminotransferase 46 IU/L (14-36); BUN Creatinine Ratio 62.4 (6-22); Bilirubin Total 1.3 mg/dL (0.2-1.3); Blood Urea Nitrogen 78 mg/dL (7-17); Calcium 9.2 mg/dL (8.4-10.2); Carbon Dioxide 20 mmol/L (22-32); Chloride 108 mmol/L (98-107); Creatine Kinase 32 U/L (30-135); Estimated Glomerular Filt Rate 47 mL/min (>60); Globulin 3.6 g/dL (1.7-4.1); Glucose 134 mg/dL (80-110); HEMOLYSIS < 15 (0-50); Potassium 3.8 mmol/L (3.4-5.1); Sodium 142 mmol/L (137-145); Total Protein 6.4 g/dL (6.3-8.2)
[2022-01-31 04:34] LABS: Lactate (Lactic Acid) 5.2 mmol/L (0.7-2.1)
[2022-01-31 04:38] LABS: Alanine Aminotransferase 28 IU/L (<35)
--- NOTE | 2022-01-31 04:40 | PM.CN.EICU ---
History of Present Illness Consult details Chief complaint: N/V/Dizziness with +orthostatic changes :: This patient was seen via real time interactive two-way audiovisual telecommunication. Narrative: 67 y.o. female who has just been transferred to ICU for change in mental status. She is unresponsive and is having sonorous respirations. Admitted 01/30 w/ a presumptive UGIB. Has history of HTN and EtOH abuse. EGD yesterday showed clots but, apparently, no definitive source of bleeding. At time of transfer, patient w/ sinus tachycardia in 110s but hemodynamically stable. O2 saturation mid 90s w/ RR high 10s-mid 20s. Some paradoxical abdominal breathing is evident but this is very sporadic. Contacted by Dr. Mittal and plans for resuscitation/evaluation discussed in detail (see below). [facility] Medical History Alcohol abuse Hypertension Surgical History History of third molar tooth extraction Status post appendectomy Status post breast lumpectomy Status post surgery (10/27/15) Status post tonsillectomy and adenoidectomy Social History household members: none Smoking Status: Never smoker alcohol intake: current Current Medications Current Medications Medications: Home Medications calcium carbonate 500 mg-vitamin D3 5 mcg (200 unit) tablet (Oyster Shell Calcium-Vitamin D3) 1 tab PO DAILY #0 tab 06/17/16 [History Confirmed 01/30/22] ascorbic acid (vitamin C) 500 mg capsule,extended release (Vitamin C) 500 mg PO DAILY 02/20/18 [History Confirmed 01/30/22] metoprolol tartrate 50 mg tablet 50 mg PO BID #60 tab 09/25/21 [Rx Confirmed 01/30/22] alprazolam 0.5 mg tablet 0.5 mg PO DAILY 01/30/22 [History Confirmed 01/30/22] chlorthalidone 25 mg tablet 25 mg PO 4-6XD 01/30/22 [History Confirmed 01/30/22] Visit Medications (administered) Generic Name Dose Route Start Last Admin Trade Name Freq PRN Reason Stop Dose Admin Alprazolam 0.5 mg 01/30/22 21:00 01/30/22 22:30 Alprazolam 0.5 Mg Tablet PO Not Given BEDTIME ABRAHAM Lactated Ringer's 1,000 mls @ 42 mls/hr 01/30/22 15:16 01/30/22 16:17 Lactated Ringers IV 01/31/22 15:04 Infused NOW ONE Infusion Pantoprazole Sodium 40 mg 01/30/22 21:00 01/30/22 22:30 Pantoprazole 40 Mg Vial IV 40 mg BID ABRAHAM Administration Exam Vital Signs (past 8 hours): - 01/31/22 00:00 Temperature 98.4 F Pulse Rate 113 H Respiratory Rate 15 Blood Pressure 116/79 Pulse Oximetry 99 Oxygen Delivery Method Room Air Oxygen Flow Rate 0 Const General: comfortable Nutritional Appearance: obese Cardio Rate: tachycardic Rhythm: regular rhythm Objective Labs Result Diagrams: 01/31/22 04:05 01/31/22 04:05 Labs: Laboratory Results - last 24 hr 01/30/22 01/30/22 01/30/22 10:22 10:35 10:35 WBC 7.9 RBC 2.25 L Hgb 8.7 L Hct 25.5 L MCV 113.3 H MCH 38.7 H MCHC 34.1 RDW 15.7 H Plt Count 103 L Neut % (Auto) 81.8 H Lymph % (Auto) 12.2 L [place] % (Auto) 5.6 Eos % (Auto) 0.1 L Baso % (Auto) 0.3 Neut # (Auto) 6400 Lymph # (Auto) 1000 L [place] # (Auto) 400 Eos # (Auto) 0 Baso # (Auto) 0 Platelet Estimate Decreased on smear RBC Morphology See below Anisocytosis 1+ H Macrocytosis 2+ H PT INR APTT Sodium 141 Potassium 3.9 Chloride 108 H Carbon Dioxide 25 BUN 65 H Creatinine 0.92 Estimated GFR > 60 BUN/Creatinine Ratio 70.7 H Glucose 129 H Lactate Calcium 9.3 Total Bilirubin 1.5 H AST 43 H ALT 22 Alkaline Phosphatase 46 Total Creatine Kinase Total Protein 6.4 Albumin 2.6 L Globulin 3.8 Albumin/Globulin Ratio 0.7 L Ethyl Alcohol SARS-CoV-2 (PCR) Negative Blood Type Antibody Screen 01/30/22 01/30/22 01/30/22 10:35 10:35 10:35 WBC RBC Hgb Hct MCV MCH MCHC RDW Plt Count Neut % (Auto) Lymph % (Auto) [place] % (Auto) Eos % (Auto) Baso % (Auto) Neut # (Auto) Lymph # (Auto) [place] # (Auto) Eos # (Auto) Baso # (Auto) Platelet Estimate RBC Morphology Anisocytosis Macrocytosis PT 16.0 H INR 1.4 H APTT 28 Sodium Potassium Chloride Carbon Dioxide BUN Creatinine Estimated GFR BUN/Creatinine Ratio Glucose Lactate Calcium Total Bilirubin AST ALT Alkaline Phosphatase Total Creatine Kinase Total Protein Albumin Globulin Albumin/Globulin Ratio Ethyl Alcohol < 10 SARS-CoV-2 (PCR) Blood Type A Positive Antibody Screen Negative 01/30/22 01/31/22 01/31/22 22:36 04:05 04:05 WBC 15.5 H D RBC 2.10 L Hgb 8.0 L 8.1 L Hct 23.2 L 23.4 L MCV 111.3 H MCH 38.4 H MCHC 34.5 RDW 16.6 H Plt Count 143 L Neut % (Auto) 80.3 H Lymph % (Auto) 9.1 L [place] % (Auto) 10.4 Eos % (Auto) 0.0 L Baso % (Auto) 0.2 Neut # (Auto) 72362 H Lymph # (Auto) 1400 [place] # (Auto) 1600 H Eos # (Auto) 0 Baso # (Auto) 0 Platelet Estimate RBC Morphology Anisocytosis Macrocytosis PT 15.3 H INR 1.4 H APTT Sodium Potassium Chloride Carbon Dioxide BUN Creatinine Estimated GFR BUN/Creatinine Ratio Glucose Lactate Calcium Total Bilirubin AST ALT Alkaline Phosphatase Total Creatine Kinase Total Protein Albumin Globulin Albumin/Globulin Ratio Ethyl Alcohol SARS-CoV-2 (PCR) Blood Type Antibody Screen 01/31/22 01/31/22 04:05 04:05 WBC RBC Hgb Hct MCV MCH MCHC RDW Plt Count Neut % (Auto) Lymph % (Auto) [place] % (Auto) Eos % (Auto) Baso % (Auto) Neut # (Auto) Lymph # (Auto) [place] # (Auto) Eos # (Auto) Baso # (Auto) Platelet Estimate RBC Morphology Anisocytosis Macrocytosis PT INR APTT Sodium 142 Potassium 3.8 Chloride 108 H Carbon Dioxide 20 L BUN 78 H Creatinine 1.25 H Estimated GFR 47 L BUN/Creatinine Ratio 62.4 H Glucose 134 H Lactate 5.2 H* Calcium 9.2 Total Bilirubin 1.3 AST 46 H ALT Alkaline Phosphatase 52 Total Creatine Kinase 32 Total Protein 6.4 Albumin 2.8 L Globulin 3.6 Albumin/Globulin Ratio 0.8 L Ethyl Alcohol SARS-CoV-2 (PCR) Blood Type Antibody Screen Assessment & Plan Assessment and plan (1) Toxic metabolic encephalopathy: Problem details: Wide ddx -- see below Status: Acute Plan: -Intubate to secure airway -Propofol/fentanyl analgosedation -May require vasopressors; would insert CVC MAGGIE -Treat empirically for occult seizures -STAT NCHCT when airway secured -Check gibson-labs including NH3 (?hepatic encephalopathy due to GIB) (2) Upper GI bleed: Status: Acute Plan: -Continue PPI -See problem #1 (3) Lactic acidosis: Status: Acute Plan: -Culture blood, sputum and urine -Start broad-spectrum antibiotics such as vancomycin and Zosyn (4) Acute kidney injury: Status: Acute Plan: -See resuscitation plan above Time Spent With Patient Critical Care time: I spent a total of 35 minutes of critical care time on this patient's care today; this time is exclusive of procedural time.
[2022-01-31 04:42] LABS: Troponin I 0.095 ng/mL (0.01-0.034)
--- NOTE | 2022-01-31 05:05 | PM.PN.1 ---
Subjective Subjective Date Patient Seen: 01/31/22 Time Patient Seen: 04:00 Interval history: Called to patient's room for altered mental status. She had intermittent sonorous breathing. She is completely unresponsive and not responding to painful stimuli. Has occasional belly breathing. Earlier today she underwent EGD for coffee ground emesis. She has had depressed mental status since. Exam Vital Signs (past 8 hours): - 01/31/22 00:00 Temperature 98.4 F Pulse Rate 113 H Respiratory Rate 15 Blood Pressure 116/79 Pulse Oximetry 99 Oxygen Delivery Method Room Air Oxygen Flow Rate 0 Narrative Exam Narrative: GEN: unresponsive, obtunded HEENT: PERRL, dry mucous membranes CV: tachycardic PULM: coarse breath sounds ABD: soft, nontender, normal bowel sounds EXT: warm and well perfused NEURO: unresponsive, lower extremities pointed and spastic, upper extremities flaccid, not withdrawaing to pain, pupils equally reactive Objective Labs Result Diagrams: 01/31/22 04:05 01/31/22 04:05 Labs: Laboratory Results - last 24 hr 01/30/22 01/30/22 01/30/22 10:22 10:35 10:35 WBC 7.9 RBC 2.25 L Hgb 8.7 L Hct 25.5 L MCV 113.3 H MCH 38.7 H MCHC 34.1 RDW 15.7 H Plt Count 103 L Neut % (Auto) 81.8 H Lymph % (Auto) 12.2 L [place] % (Auto) 5.6 Eos % (Auto) 0.1 L Baso % (Auto) 0.3 Neut # (Auto) 6400 Lymph # (Auto) 1000 L [place] # (Auto) 400 Eos # (Auto) 0 Baso # (Auto) 0 Platelet Estimate Decreased on smear RBC Morphology See below Anisocytosis 1+ H Macrocytosis 2+ H PT INR APTT Sodium 141 Potassium 3.9 Chloride 108 H Carbon Dioxide 25 BUN 65 H Creatinine 0.92 Estimated GFR > 60 BUN/Creatinine Ratio 70.7 H Glucose 129 H Lactate Calcium 9.3 Total Bilirubin 1.5 H AST 43 H ALT 22 Alkaline Phosphatase 46 Total Creatine Kinase Troponin I Total Protein 6.4 Albumin 2.6 L Globulin 3.8 Albumin/Globulin Ratio 0.7 L Ethyl Alcohol SARS-CoV-2 (PCR) Negative Blood Type Antibody Screen 01/30/22 01/30/22 01/30/22 10:35 10:35 10:35 WBC RBC Hgb Hct MCV MCH MCHC RDW Plt Count Neut % (Auto) Lymph % (Auto) [place] % (Auto) Eos % (Auto) Baso % (Auto) Neut # (Auto) Lymph # (Auto) [place] # (Auto) Eos # (Auto) Baso # (Auto) Platelet Estimate RBC Morphology Anisocytosis Macrocytosis PT 16.0 H INR 1.4 H APTT 28 Sodium Potassium Chloride Carbon Dioxide BUN Creatinine Estimated GFR BUN/Creatinine Ratio Glucose Lactate Calcium Total Bilirubin AST ALT Alkaline Phosphatase Total Creatine Kinase Troponin I Total Protein Albumin Globulin Albumin/Globulin Ratio Ethyl Alcohol < 10 SARS-CoV-2 (PCR) Blood Type A Positive Antibody Screen Negative 01/30/22 01/31/22 01/31/22 22:36 04:05 04:05 WBC 15.5 H D RBC 2.10 L Hgb 8.0 L 8.1 L Hct 23.2 L 23.4 L MCV 111.3 H MCH 38.4 H MCHC 34.5 RDW 16.6 H Plt Count 143 L Neut % (Auto) 80.3 H Lymph % (Auto) 9.1 L [place] % (Auto) 10.4 Eos % (Auto) 0.0 L Baso % (Auto) 0.2 Neut # (Auto) 98909 H Lymph # (Auto) 1400 [place] # (Auto) 1600 H Eos # (Auto) 0 Baso # (Auto) 0 Platelet Estimate RBC Morphology Anisocytosis Macrocytosis PT 15.3 H INR 1.4 H APTT Sodium Potassium Chloride Carbon Dioxide BUN Creatinine Estimated GFR BUN/Creatinine Ratio Glucose Lactate Calcium Total Bilirubin AST ALT Alkaline Phosphatase Total Creatine Kinase Troponin I Total Protein Albumin Globulin Albumin/Globulin Ratio Ethyl Alcohol SARS-CoV-2 (PCR) Blood Type Antibody Screen 01/31/22 01/31/22 04:05 04:05 WBC RBC Hgb Hct MCV MCH MCHC RDW Plt Count Neut % (Auto) Lymph % (Auto) [place] % (Auto) Eos % (Auto) Baso % (Auto) Neut # (Auto) Lymph # (Auto) [place] # (Auto) Eos # (Auto) Baso # (Auto) Platelet Estimate RBC Morphology Anisocytosis Macrocytosis PT INR APTT Sodium 142 Potassium 3.8 Chloride 108 H Carbon Dioxide 20 L BUN 78 H Creatinine 1.25 H Estimated GFR 47 L BUN/Creatinine Ratio 62.4 H Glucose 134 H Lactate 5.2 H* Calcium 9.2 Total Bilirubin 1.3 AST 46 H ALT 28 Alkaline Phosphatase 52 Total Creatine Kinase 32 Troponin I 0.095 H Total Protein 6.4 Albumin 2.8 L Globulin 3.6 Albumin/Globulin Ratio 0.8 L Ethyl Alcohol SARS-CoV-2 (PCR) Blood Type Antibody Screen [facility] Medical History Alcohol abuse Hypertension Surgical History History of third molar tooth extraction Status post appendectomy Status post breast lumpectomy Status post surgery (10/27/15) Status post tonsillectomy and adenoidectomy Social History household members: none Smoking Status: Never smoker alcohol intake: current Assessment & Plan Assessment & Plan narrative: 1. Acute encephalopathy -intubate for airway protection -chest xray to evaluate for infection -stat head CT once respiratory and hemodynamically stable -check ammonia -CK normal, less likely to be NMS, serotonin syndrome -propofol, fentanyl for sedation -check prolactin -treat for seizure, on CIWA protocol and propofol 2. Sepsis possibly from aspiration pneumonia from vomiting -lactate elevated at 5.2, patient tachycardic, with organ dysfunction with encephalopathy -ordered sputum, blood, urine cultures -start broad antibiotics with vanco/meropenem -ordered IV bolus 30cc/kg normal saline -chest xray as above -levophed for MAP>65 goal -monitor urine output 3. GI bleeding -repeat hemoglobin -continue protonix IV BID 4. ASHLEY -secondary to hypovolemia and sepsis -IVF and antibiotics as above 5. Elevated troponin -EKG shows sinus tachy -suspect secondary to sepsis -trend troponin -cant anticoagulate or antiplatelet due to bleed Time Spent With Patient Critical Care time: I spent a total of [] minutes of critical care time on this patient's care today; this time is exclusive of procedural time. Quality VTE Deep Vein Thrombosis/Pulmonary Embolism Present on Admission: No
[2022-01-31] MEDS: propofoL 1,000 MG/100 ML VIAL 2.618 MG IV (05:21)
--- NOTE | 2022-01-31 05:27 | DI.RAD.S_ITS ---
PROCEDURE: XR CHEST 1V INDICATIONS: intubation and cvl placement, evidence of pna/aspiration? TECHNIQUE: One view of the chest was acquired. COMPARISON: None. FINDINGS: Surgical changes and devices: ET tube is approximately 2.0 centimeters superior to the chriss and should be pulled back approximately 2 centimeters. NG tube projects across the GE junction with side port at the GE junction. NG tube should be advanced several centimeters. Central venous catheter tip projects to the mid SVC via right IJ approach. Multiple surgical clips in the left breast and axilla. Lungs and pleura: Lungs are clear. No pleural effusions or pneumothorax. Mediastinum: Mediastinal contours appear normal. Heart size is normal. Bones and chest wall: No suspicious bony lesions. Overlying soft tissues appear unremarkable. Left clavicle fracture. IMPRESSION: 1. ET tube approximately 2.0 centimeters superior to the and should be pulled back approximately 2 centimeters. 2. NG tube side port at the GE junction. NG tube should be advanced 5-10 centimeters. 3. No acute cardiopulmonary disease process. Dictated by: Lanny Mccann MD, PhD on 01/31/2022 at 7:49 Approved by: Lanny Mccann MD, PhD on 01/31/2022 at 7:54
--- NOTE | 2022-01-31 05:27 | DI.CT.S_ITS ---
PROCEDURE: CT HEAD/BRAIN WO CON INDICATIONS: altered mental status, cva, bleed? TECHNIQUE: Noncontrast 4.5 mm thick angled axial sections acquired from the foramen magnum to the vertex, with coronal and sagittal reformats. For radiation dose reduction, the following was used: automated exposure control, adjustment of mA and/or kV according to patient size. COMPARISON: [facility], CT, CT ANGIO CHEST PE PROTOCOL, 01/31/2022, 10:09. [facility], CT, CT ABDOMEN PELVIS W CON, 01/31/2022, 10:09. [facility], CT, CT HEAD/BRAIN WO CON, 09/22/2021, 6:56. FINDINGS: Image quality: Excellent. CSF spaces: Basal cisterns are patent. No extra-axial fluid collections. The ventricles are symmetric in size and shape. Brain: No intracranial bleeds or masses. There is cerebral volume loss for age, with resultant ventricular and sulcal prominence. There are periventricular and deep white matter chronic small vessel ischemic changes. There is intracranial internal carotid artery atherosclerosis. Skull and face: Calvarium and visualized facial bones appear intact, without suspicious lesions. Sinuses: Mild generalized mucosal thickening can be seen within the paranasal sinuses. No abnormal fluid is seen within the mastoid air cells. An endotracheal tube and a gastric tube can be seen on the data assistant image. IMPRESSION: No acute intracranial hemorrhage is seen. No acute intracranial process is seen. If there is strong clinical suspicion for an acute stroke, please consider a brain MRI for further evaluation, as it is more sensitive (assuming that there is no contraindication to MRI). Dictated by: Terrell Gonzalez M.D. on 01/31/2022 at 10:07 Approved by: Terrell Gonzalez M.D. on 01/31/2022 at 10:09
[2022-01-31 05:53] LABS: Ammonia (NH3) 238 umol/L (9-30)
[2022-01-31] MEDS: fentaNYL 1,000 MCG in DEXTROSE 5% IN WATER 230 ML 15.272 ML IV (05:53)
[2022-01-31] MEDS: SODIUM CHLORIDE 0.9% 872.71 ML IV (05:54)
[2022-01-31] MEDS: NOREPINEPHRINE BITARTRATE/D5W 4 MG/250 ML PLAST..BAG 30 MG IV (05:55)
[2022-01-31] MEDS: THIAMINE 500 MG in SODIUM CHLORIDE 0.9% 100 ML 408 ML IV ×3 (06:04→21:56)
[2022-01-31 06:18] LABS: Reflexed Lactate in 2 Hours Y
[2022-01-31] MEDS: MEROPENEM 1 GM in SODIUM CHLORIDE 0.9% 100 ML 200 ML IV ×2 (06:41→12:22)
[2022-01-31] MEDS: VANCOMYCIN 2,000 MG/400 ML PIGGYBACK 200 MG IV (06:42)
--- NOTE | 2022-01-31 06:55 | PM.CN ---
History of Present Illness Consult details Date Patient Seen: 01/31/22 Time Patient Seen: 05:10 Chief complaint: N/V/Dizziness with +orthostatic changes Narrative: Have called to see and evaluate patient. Need for urgent intubation and central line placement. She has had decreasing mental status needs airway protection. Also elevated lactic acid possible sepsis will probably need vasopressors as well. Meds Home Medications and Allergies Home Medications Medication Instructions Recorded Confirmed Type calcium carbonate 500 mg-vitamin 1 tab PO DAILY #0 tab 06/17/16 01/30/22 History D3 5 mcg (200 unit) tablet (Oyster Shell Calcium-Vitamin D3) ascorbic acid (vitamin C) 500 mg 500 mg PO DAILY 02/20/18 01/30/22 History capsule,extended release (Vitamin C) metoprolol tartrate 50 mg tablet 50 mg PO BID #60 tab 09/25/21 01/30/22 Rx alprazolam 0.5 mg tablet 0.5 mg PO DAILY 01/30/22 01/30/22 History chlorthalidone 25 mg tablet 25 mg PO 4-6XD 01/30/22 01/30/22 History Allergies Allergy/AdvReac Type Severity Reaction Status Date / Time Penicillins [PENICILLINS] Allergy Severe passed out Verified 01/30/22 11:04 as a child codeine [CODEINE] AdvReac Intermediate NAUSEA Verified 01/30/22 11:04 Review of Systems Review of Systems ROS: Yes unobtainable due to mental condition Exam Vital Signs (past 8 hours): - 01/31/22 00:00 Temperature 98.4 F Pulse Rate 113 H Respiratory Rate 15 Blood Pressure 116/79 Pulse Oximetry 99 Fraction of Inspired Oxygen 30 Oxygen Delivery Method Room Air Oxygen Flow Rate 0 Narrative Exam Narrative: GENERAL: The patient unresponsive head turned towards the right HEENT: Head atraumatic,EOMI, pupils reactive, CARDIOVASCULAR: Regular rate and rhythm without murmurs, rubs or gallops. RESPIRATORY: Tachypnea accessory muscle use ABDOMEN: Soft, nontender. Normoactive bowel sounds all 4 quadrants. No guarding or rebound. EXTREMITIES: Normal range of motion, no clubbing or edema. Neurovascularly intact NEUROLOGICAL: Bilateral foot drop almost posturing with breathing SKIN: Warm, dry, no laceration, no petechiae, no rashes or lesions. Objective Imaging Chest x-ray: My impression: ET tube and central line in place is no pneumothorax Labs Result Diagrams: 01/31/22 04:05 01/31/22 04:05 Labs: Laboratory Results - last 24 hr 01/30/22 01/30/22 01/30/22 10:22 10:35 10:35 WBC 7.9 RBC 2.25 L Hgb 8.7 L Hct 25.5 L MCV 113.3 H MCH 38.7 H MCHC 34.1 RDW 15.7 H Plt Count 103 L Neut % (Auto) 81.8 H Lymph % (Auto) 12.2 L [place] % (Auto) 5.6 Eos % (Auto) 0.1 L Baso % (Auto) 0.3 Neut # (Auto) 6400 Lymph # (Auto) 1000 L [place] # (Auto) 400 Eos # (Auto) 0 Baso # (Auto) 0 Platelet Estimate Decreased on smear RBC Morphology See below Anisocytosis 1+ H Macrocytosis 2+ H PT INR APTT Sodium 141 Potassium 3.9 Chloride 108 H Carbon Dioxide 25 BUN 65 H Creatinine 0.92 Estimated GFR > 60 BUN/Creatinine Ratio 70.7 H Glucose 129 H Lactate Calcium 9.3 Total Bilirubin 1.5 H AST 43 H ALT 22 Alkaline Phosphatase 46 Ammonia Total Creatine Kinase Troponin I Total Protein 6.4 Albumin 2.6 L Globulin 3.8 Albumin/Globulin Ratio 0.7 L Prolactin Ethyl Alcohol SARS-CoV-2 (PCR) Negative Blood Type Antibody Screen 01/30/22 01/30/22 01/30/22 10:35 10:35 10:35 WBC RBC Hgb Hct MCV MCH MCHC RDW Plt Count Neut % (Auto) Lymph % (Auto) [place] % (Auto) Eos % (Auto) Baso % (Auto) Neut # (Auto) Lymph # (Auto) [place] # (Auto) Eos # (Auto) Baso # (Auto) Platelet Estimate RBC Morphology Anisocytosis Macrocytosis PT 16.0 H INR 1.4 H APTT 28 Sodium Potassium Chloride Carbon Dioxide BUN Creatinine Estimated GFR BUN/Creatinine Ratio Glucose Lactate Calcium Total Bilirubin AST ALT Alkaline Phosphatase Ammonia Total Creatine Kinase Troponin I Total Protein Albumin Globulin Albumin/Globulin Ratio Prolactin Ethyl Alcohol < 10 SARS-CoV-2 (PCR) Blood Type A Positive Antibody Screen Negative 01/30/22 01/31/22 01/31/22 22:36 04:05 04:05 WBC 15.5 H D RBC 2.10 L Hgb 8.0 L 8.1 L Hct 23.2 L 23.4 L MCV 111.3 H MCH 38.4 H MCHC 34.5 RDW 16.6 H Plt Count 143 L Neut % (Auto) 80.3 H Lymph % (Auto) 9.1 L [place] % (Auto) 10.4 Eos % (Auto) 0.0 L Baso % (Auto) 0.2 Neut # (Auto) 35197 H Lymph # (Auto) 1400 [place] # (Auto) 1600 H Eos # (Auto) 0 Baso # (Auto) 0 Platelet Estimate RBC Morphology Anisocytosis Macrocytosis PT 15.3 H INR 1.4 H APTT Sodium Potassium Chloride Carbon Dioxide BUN Creatinine Estimated GFR BUN/Creatinine Ratio Glucose Lactate Calcium Total Bilirubin AST ALT Alkaline Phosphatase Ammonia Total Creatine Kinase Troponin I Total Protein Albumin Globulin Albumin/Globulin Ratio Prolactin Ethyl Alcohol SARS-CoV-2 (PCR) Blood Type Antibody Screen 01/31/22 01/31/22 01/31/22 04:05 04:05 04:05 WBC RBC Hgb Hct MCV MCH MCHC RDW Plt Count Neut % (Auto) Lymph % (Auto) [place] % (Auto) Eos % (Auto) Baso % (Auto) Neut # (Auto) Lymph # (Auto) [place] # (Auto) Eos # (Auto) Baso # (Auto) Platelet Estimate RBC Morphology Anisocytosis Macrocytosis PT INR APTT Sodium 142 Potassium 3.8 Chloride 108 H Carbon Dioxide 20 L BUN 78 H Creatinine 1.25 H Estimated GFR 47 L BUN/Creatinine Ratio 62.4 H Glucose 134 H Lactate 5.2 H* Calcium 9.2 Total Bilirubin 1.3 AST 46 H ALT 28 Alkaline Phosphatase 52 Ammonia Total Creatine Kinase 32 Troponin I 0.095 H Total Protein 6.4 Albumin 2.8 L Globulin 3.6 Albumin/Globulin Ratio 0.8 L Prolactin 89.0 H Ethyl Alcohol SARS-CoV-2 (PCR) Blood Type Antibody Screen 01/31/22 04:20 WBC RBC Hgb Hct MCV MCH MCHC RDW Plt Count Neut % (Auto) Lymph % (Auto) [place] % (Auto) Eos % (Auto) Baso % (Auto) Neut # (Auto) Lymph # (Auto) [place] # (Auto) Eos # (Auto) Baso # (Auto) Platelet Estimate RBC Morphology Anisocytosis Macrocytosis PT INR APTT Sodium Potassium Chloride Carbon Dioxide BUN Creatinine Estimated GFR BUN/Creatinine Ratio Glucose Lactate Calcium Total Bilirubin AST ALT Alkaline Phosphatase Ammonia 238 H Total Creatine Kinase Troponin I Total Protein Albumin Globulin Albumin/Globulin Ratio Prolactin Ethyl Alcohol SARS-CoV-2 (PCR) Blood Type Antibody Screen [facility] Medical History (Updated 01/31/22 @ 07:10 by Dagmar Franco DO) Alcohol abuse Hepatic encephalopathy Hypertension Respiratory failure Surgical History History of third molar tooth extraction Status post appendectomy Status post breast lumpectomy Status post surgery (10/27/15) Status post tonsillectomy and adenoidectomy Social History household members: none Tobacco & Substance Use Smoking Status: Never smoker alcohol intake: current Assessment & Plan Assessment and plan (1) Respiratory failure: Status: Acute (2) Hepatic encephalopathy: Status: Acute Plan Patient easily intubated for airway protection central line placed for possible sepsis and need for vasopressors. Chest x-ray reviewed by myself no pneumothorax lines and the ET tube in place. Assessment & Plan narrative: See Internal Medicine note Time Spent With Patient Critical Care time: I spent a total of [] minutes of critical care time on this patient's care today; this time is exclusive of procedural time. Procedure Notes Sedation minutes: 15 Procedure Notes Sedation minutes: 15 Procedure Notes Sedation minutes: 15 Procedure Note Date of procedure: 01/31/22 Procedures Central Line Placement Right IJ: Central line prep: Chlorhexidine scrub and sterile drapes applied Local anesthesia used: lidocaine 1% Amount of anesthesia used (ml): 5 Ultrasound used for placement: Yes Central line lumen inserted: triple Post procedure: sutured in place, good blood return, all ports aspirated, flushed, capped and sterile dressing applied Post procedure x-ray: tip of catheter in good position and no pneumothorax seen Patient tolerated procedure: well and no complications Complications: none Intubation Sedative: etomidate Mg given: 10 Paralytic: succinylcholine Mg given: 100 Laryngoscope: other (Montrose scope) ET tube size: 7.5 Tube secured depth (cm): 27 Tube secured location: lips Tube placement confirmation: visualized tube passing through cords, equal breath sounds bilaterally, no breath sounds over epigastrium and confirmation by capnometry Patient tolerated procedure: well and no complications Intubation complications: none Procedures Date/Time Date of procedure: 04/28/22 Time of procedure: 05:15 Intubation Sedative: etomidate Mg given: 10 Paralytic: succinylcholine Mg given: 100 Laryngoscope: other (Montrose scope) ET tube size: 7.5 Tube secured depth (cm): 27 Tube secured location: lips Tube placement confirmation: visualized tube passing through cords, equal breath sounds bilaterally, no breath sounds over epigastrium and confirmation by capnometry Patient tolerated procedure: well and no complications Intubation complications: none Date/Time/Diagnoses Date of procedure: 01/31/22 Time of procedure: 05:15 Procedure Notes Total sedation minutes: 15
[2022-01-31 07:01] LABS: Folate 4.2 ng/mL (2.76-20.0); Vitamin B12 667 pg/mL (239-931)
[2022-01-31 07:05] LABS: HCO3 ABG 21 mmol/L (22-26); PO2 ABG 113 mmHg (80-100); TCO2 ABG 22 mmol/L (21-31); pH ABG 7.55 (7.35-7.45)
[2022-01-31 07:06] LABS: Fractionated Inspired Oxygen 32; Oxygen Saturation ABG 99 % (95-100)
--- NOTE | 2022-01-31 07:07 | DI.CT.S_ITS ---
PROCEDURE: CT ANGIO CHEST PE PROTOCOL INDICATIONS: Concern for PE, intraabdominal infection TECHNIQUE: After the administration of intravenous contrast, 2 mm thick sections acquired from the pulmonary apices to the posterior costophrenic angles. 3-dimensional maximum intensity projection (MIP) coronal and sagittal reformats were then acquired through the thorax. For radiation dose reduction, the following was used: automated exposure control, adjustment of mA and/or kV according to patient size. COMPARISON: [facility], CT, CT ABDOMEN PELVIS W CON, 01/31/2022, 10:09. [facility], CT, CT HEAD/BRAIN WO CON, 01/31/2022, 10:09. FINDINGS: Image quality: Excellent. Pulmonary arteries: The bolus of the contrast injection is suboptimal. The main pulmonary artery measures approximately 220 Hounsfield units. Pulmonary artery densities are greater than 250 Hounsfield units are considered to be ideal for evaluation of pulmonary embolism. There is a small burden of pulmonary embolism seen involving the right lower lobe pulmonary arteries proximally. No pulmonary emboli are seen more distally, although sensitivity for detection of such is limited on this study. Lungs and pleura: Mild dependent atelectasis is seen. This patient is intubated, with the tip of the endotracheal tube seen 2.5 cm above the chriss. No pleural effusions or pneumothorax. Central and peripheral airways are patent. Mediastinum: Heart size is normal, without pericardial effusion. No mediastinal or hilar adenopathy. Thoracic aorta is normal in caliber and enhancement. Esophagus is normal in caliber, without hiatal hernia. Bones and chest wall: No suspicious bony lesions. Age-appropriate bony degenerative changes are seen. Ribs and thoracic spine appear intact throughout. Thyroid gland demonstrates no significant abnormality. No axillary or supraclavicular adenopathy. Abdomen: The gastric tube can be seen protruding into the stomach, with the tip not visible on this study. There is a simple appearing right liver cyst seen that measures 7.5 cm. The visualized portions of the upper abdominal structures are otherwise unremarkable for imaging technique. IMPRESSION: There is a small burden of pulmonary embolism seen involving the right lower lobe. The tip of the endotracheal tube is seen 2.5 cm above the chriss. Mild dependent atelectasis is seen. Otherwise, clear lungs. The tip of the gastric tube protrudes into the gastric lumen. Note: Case discussed by telephone with nurse Dorado in the ICU at 10:15 a.m. [place] time on January 31, 2022, who will discuss the finding of pulmonary embolism with the hospitalist. Dictated by: Terrell Gonzalez M.D. on 01/31/2022 at 10:09 Approved by: Terrell Gonzalez M.D. on 01/31/2022 at 10:16
[2022-01-31 07:13] LABS: Lactate 2HR (Lactic Acid Rflx) 5.3 mmol/L (0.7-2.1)
[2022-01-31 07:15] LABS: Macrocytosis 2+
[2022-01-31 07:16] LABS: Polychromasia 1+
--- NOTE | 2022-01-31 07:36 | PC.NURSE ---
Pt. transferred to ICU from acute care for unresponsiveness. Pt. was intubated at [address] Durand due to neuro status and airway protection. Etomidate 10 mg and 100 mg of Succs was administered. OGT was inserted and advanced by 5 cm after Xray was taken. RIJ was also placed by Dr. Durand. CXR done to confirm placement . Pt. on vent at 35% Fi02, R-12, PEEP-5, TV-400. Propofol initiated at 5mcg/kg/hr and titrated to 10mg/hr. Norepi also started as well as Fentanyl (see MAR). Pt. received 2L NS per MD and per sepsis protocol. Vancomycin and Meropenem started infusing after blood cultures were drawn. Trevino also inserted. Pt. remains unresponsive at this time. Bedside report given to day shift nurse Estrada.
[2022-01-31 07:59] LABS: HCO3 ABG 20 mmol/L (22-26); PCO2 ABG 26.3 mmHg (35-45); PO2 ABG 153 mmHg (80-100); TCO2 ABG 21 mmol/L (21-31)
[2022-01-31 08:00] LABS: Fractionated Inspired Oxygen 30; Oxygen Saturation ABG 100 % (95-100)
[2022-01-31 08:28] LABS: Appearance Urine UA CLEAR; Bilirubin Urine UA NEGATIVE (NEGATIVE); Color Urine UA YELLOW; Glucose Urine UA NEGATIVE (Negative); Ketones Urine UA NEGATIVE (NEGATIVE); Leukocyte Esterase Urine UA NEGATIVE (NEGATIVE); Nitrite Urine UA NEGATIVE (Negative); Occult Blood Urine UA 3+ (Negative); Protein Urine UA NEGATIVE (Negative); Urobilinogen Urine UA 0.2 E.U./dL (0.2)
[2022-01-31] MEDS: PANTOPRAZOLE 40 MG VIAL IV ×2 (08:40→21:58)
[2022-01-31 08:48] LABS: pH Urine UA 5.5 (4.5-8.0)
[2022-01-31 08:49] LABS: Bacteria Urine Few (2-10); Culture Indicated Urine Cult Not Indicated; RBC Urine 10-30/HPF (0-5/HPF); Squamous Epithelial Cell Urine 1-5 /HPF (0-5/HPF); WBC Urine None Seen (0-5/HPF)
--- NOTE | 2022-01-31 09:44 | P.TELICUPN_ITS ---
Subjective Subjective :: This patient was seen via real time interactive two-way audiovisual telecommunication. no acute events since admission no signs of active bleeding pt off sedation not waking up Current Medications Current Medications Medications: Home Medications calcium carbonate 500 mg-vitamin D3 5 mcg (200 unit) tablet (Oyster Shell Calcium-Vitamin D3) 1 tab PO DAILY #0 tab 06/17/16 [History Confirmed 01/30/22] ascorbic acid (vitamin C) 500 mg capsule,extended release (Vitamin C) 500 mg PO DAILY 02/20/18 [History Confirmed 01/30/22] metoprolol tartrate 50 mg tablet 50 mg PO BID #60 tab 09/25/21 [Rx Confirmed 01/30/22] alprazolam 0.5 mg tablet 0.5 mg PO DAILY 01/30/22 [History Confirmed 01/30/22] chlorthalidone 25 mg tablet 25 mg PO 4-6XD 01/30/22 [History Confirmed 01/30/22] Visit Medications (administered) Generic Name Dose Route Start Last Admin Trade Name Bijanq PRN Reason Stop Dose Admin Thiamine HCl 500 mg/ Sodium 105 mls @ 408 mls/hr 01/31/22 04:00 01/31/22 07:02 Chloride IV Infused TID ABRAHAM Infusion Propofol 1,000 mg in 100 mls @ 2.618 mls/hr 01/31/22 04:37 01/31/22 08:41 Propofol IV 5 mcg/kg/min TITRATE ABRAHAM 2.618 mls/hr Titration Protocol 5 MCG/KG/MIN Fentanyl 1,000 mcg/ Dextrose 250 mls @ 15.272 mls/hr 01/31/22 04:37 01/31/22 07:45 IV 0 mcg/kg/hr TITRATE ABRAHAM 0 mls/hr Titration Protocol 0.7 MCG/KG/HR NOREPINEPHRINE BITARTRATE/D5W 4 mg in 250 mls @ 30 mls/hr 01/31/22 04:37 01/31/22 07:45 Levophed IV 0 mcg/min TITRATE ABRAHAM 0 mls/hr Titration Protocol 8 MCG/MIN Meropenem 1 gm/ Sodium 100 mls @ 200 mls/hr 01/31/22 05:00 01/31/22 07:15 Chloride IV Infused Q8H ABRAHAM Infusion Pantoprazole Sodium 40 mg 01/30/22 21:00 01/31/22 08:40 Pantoprazole 40 Mg Vial IV 40 mg BID ABRAHAM Administration Objective Ventilator Parameters: Ventilator Settings FiO2 24 RT Vent Frequency 12 Ventilator Tidal Volume 470 Exhaled Vt/kg IBW 8 Positive End Expiratory 5 Pressure Inspiratory Phase Time 0.9 I:E Ratio 1:4.5 Patient Position HOB >= 30 degrees Labs Result Diagrams: 01/31/22 04:05 01/31/22 04:05 Labs: Laboratory Results - last 24 hr 01/30/22 01/30/22 01/30/22 10:22 10:35 10:35 WBC 7.9 RBC 2.25 L Hgb 8.7 L Hct 25.5 L MCV 113.3 H MCH 38.7 H MCHC 34.1 RDW 15.7 H Plt Count 103 L Neut % (Auto) 81.8 H Lymph % (Auto) 12.2 L [place] % (Auto) 5.6 Eos % (Auto) 0.1 L Baso % (Auto) 0.3 Neut # (Auto) 6400 Lymph # (Auto) 1000 L [place] # (Auto) 400 Eos # (Auto) 0 Baso # (Auto) 0 Platelet Estimate Decreased on smear RBC Morphology See below Polychromasia Anisocytosis 1+ H Macrocytosis 2+ H PT INR APTT ABG pH ABG pCO2 ABG pO2 ABG HCO3 ABG Total CO2 ABG O2 Saturation ABG Base Excess FiO2 Sodium 141 Potassium 3.9 Chloride 108 H Carbon Dioxide 25 BUN 65 H Creatinine 0.92 Estimated GFR > 60 BUN/Creatinine Ratio 70.7 H Glucose 129 H Lactate Calcium 9.3 Total Bilirubin 1.5 H AST 43 H ALT 22 Alkaline Phosphatase 46 Ammonia Total Creatine Kinase Troponin I Total Protein 6.4 Albumin 2.6 L Globulin 3.8 Albumin/Globulin Ratio 0.7 L Vitamin B12 Folate Prolactin Urine Color Urine Appearance Urine pH Ur Specific [place] Urine Protein Urine Glucose (UA) Urine Ketones Urine Occult Blood Urine Nitrate Urine Bilirubin Urine Urobilinogen Ur Leukocyte Esterase Urine RBC Urine WBC Ur Squamous Epith Cells Urine Bacteria Ur Culture Indicated? Ethyl Alcohol SARS-CoV-2 (PCR) Negative Blood Type Antibody Screen 01/30/22 01/30/22 01/30/22 10:35 10:35 10:35 WBC RBC Hgb Hct MCV MCH MCHC RDW Plt Count Neut % (Auto) Lymph % (Auto) [place] % (Auto) Eos % (Auto) Baso % (Auto) Neut # (Auto) Lymph # (Auto) [place] # (Auto) Eos # (Auto) Baso # (Auto) Platelet Estimate RBC Morphology Polychromasia Anisocytosis Macrocytosis PT 16.0 H INR 1.4 H APTT 28 ABG pH ABG pCO2 ABG pO2 ABG HCO3 ABG Total CO2 ABG O2 Saturation ABG Base Excess FiO2 Sodium Potassium Chloride Carbon Dioxide BUN Creatinine Estimated GFR BUN/Creatinine Ratio Glucose Lactate Calcium Total Bilirubin AST ALT Alkaline Phosphatase Ammonia Total Creatine Kinase Troponin I Total Protein Albumin Globulin Albumin/Globulin Ratio Vitamin B12 Folate Prolactin Urine Color Urine Appearance Urine pH Ur Specific [place] Urine Protein Urine Glucose (UA) Urine Ketones Urine Occult Blood Urine Nitrate Urine Bilirubin Urine Urobilinogen Ur Leukocyte Esterase Urine RBC Urine WBC Ur Squamous Epith Cells Urine Bacteria Ur Culture Indicated? Ethyl Alcohol < 10 SARS-CoV-2 (PCR) Blood Type A Positive Antibody Screen Negative 01/30/22 01/31/22 01/31/22 22:36 04:05 04:05 WBC RBC Hgb 8.0 L Hct 23.2 L MCV MCH MCHC RDW Plt Count Neut % (Auto) Lymph % (Auto) [place] % (Auto) Eos % (Auto) Baso % (Auto) Neut # (Auto) Lymph # (Auto) [place] # (Auto) Eos # (Auto) Baso # (Auto) Platelet Estimate RBC Morphology Polychromasia Anisocytosis Macrocytosis PT 15.3 H INR 1.4 H APTT ABG pH ABG pCO2 ABG pO2 ABG HCO3 ABG Total CO2 ABG O2 Saturation ABG Base Excess FiO2 Sodium Potassium Chloride Carbon Dioxide BUN Creatinine Estimated GFR BUN/Creatinine Ratio Glucose Lactate Calcium Total Bilirubin AST ALT Alkaline Phosphatase Ammonia Total Creatine Kinase Troponin I Total Protein Albumin Globulin Albumin/Globulin Ratio Vitamin B12 667 Folate 4.2 Prolactin Urine Color Urine Appearance Urine pH Ur Specific [place] Urine Protein Urine Glucose (UA) Urine Ketones Urine Occult Blood Urine Nitrate Urine Bilirubin Urine Urobilinogen Ur Leukocyte Esterase Urine RBC Urine WBC Ur Squamous Epith Cells Urine Bacteria Ur Culture Indicated? Ethyl Alcohol SARS-CoV-2 (PCR) Blood Type Antibody Screen 01/31/22 01/31/22 01/31/22 04:05 04:05 04:05 WBC 15.5 H D RBC 2.10 L Hgb 8.1 L Hct 23.4 L MCV 111.3 H MCH 38.4 H MCHC 34.5 RDW 16.6 H Plt Count 143 L Neut % (Auto) 80.3 H Lymph % (Auto) 9.1 L [place] % (Auto) 10.4 Eos % (Auto) 0.0 L Baso % (Auto) 0.2 Neut # (Auto) 29246 H Lymph # (Auto) 1400 [place] # (Auto) 1600 H Eos # (Auto) 0 Baso # (Auto) 0 Platelet Estimate RBC Morphology Not Reportable Polychromasia 1+ H Anisocytosis Macrocytosis 2+ H PT INR APTT ABG pH ABG pCO2 ABG pO2 ABG HCO3 ABG Total CO2 ABG O2 Saturation ABG Base Excess FiO2 Sodium 142 Potassium 3.8 Chloride 108 H Carbon Dioxide 20 L BUN 78 H Creatinine 1.25 H Estimated GFR 47 L BUN/Creatinine Ratio 62.4 H Glucose 134 H Lactate 5.2 H* Calcium 9.2 Total Bilirubin 1.3 AST 46 H ALT 28 Alkaline Phosphatase 52 Ammonia Total Creatine Kinase 32 Troponin I 0.095 H Total Protein 6.4 Albumin 2.8 L Globulin 3.6 Albumin/Globulin Ratio 0.8 L Vitamin B12 Folate Prolactin Urine Color Urine Appearance Urine pH Ur Specific [place] Urine Protein Urine Glucose (UA) Urine Ketones Urine Occult Blood Urine Nitrate Urine Bilirubin Urine Urobilinogen Ur Leukocyte Esterase Urine RBC Urine WBC Ur Squamous Epith Cells Urine Bacteria Ur Culture Indicated? Ethyl Alcohol SARS-CoV-2 (PCR) Blood Type Antibody Screen 01/31/22 01/31/22 01/31/22 04:05 04:10 04:20 WBC RBC Hgb Hct MCV MCH MCHC RDW Plt Count Neut % (Auto) Lymph % (Auto) [place] % (Auto) Eos % (Auto) Baso % (Auto) Neut # (Auto) Lymph # (Auto) [place] # (Auto) Eos # (Auto) Baso # (Auto) Platelet Estimate RBC Morphology Polychromasia Anisocytosis Macrocytosis PT INR APTT ABG pH 7.55 H ABG pCO2 24.0 L* ABG pO2 113 H ABG HCO3 21 L ABG Total CO2 22 ABG O2 Saturation 99 ABG Base Excess -1.0 FiO2 32 Sodium Potassium Chloride Carbon Dioxide BUN Creatinine Estimated GFR BUN/Creatinine Ratio Glucose Lactate Calcium Total Bilirubin AST ALT Alkaline Phosphatase Ammonia 238 H Total Creatine Kinase Troponin I Total Protein Albumin Globulin Albumin/Globulin Ratio Vitamin B12 Folate Prolactin 89.0 H Urine Color Urine Appearance Urine pH Ur Specific [place] Urine Protein Urine Glucose (UA) Urine Ketones Urine Occult Blood Urine Nitrate Urine Bilirubin Urine Urobilinogen Ur Leukocyte Esterase Urine RBC Urine WBC Ur Squamous Epith Cells Urine Bacteria Ur Culture Indicated? Ethyl Alcohol SARS-CoV-2 (PCR) Blood Type Antibody Screen 01/31/22 01/31/22 01/31/22 06:38 07:24 07:30 WBC RBC Hgb Hct MCV MCH MCHC RDW Plt Count Neut % (Auto) Lymph % (Auto) [place] % (Auto) Eos % (Auto) Baso % (Auto) Neut # (Auto) Lymph # (Auto) [place] # (Auto) Eos # (Auto) Baso # (Auto) Platelet Estimate RBC Morphology Polychromasia Anisocytosis Macrocytosis PT INR APTT ABG pH 7.50 H ABG pCO2 26.3 L ABG pO2 153 H ABG HCO3 20 L ABG Total CO2 21 ABG O2 Saturation 100 ABG Base Excess -3.0 L FiO2 30 Sodium Potassium Chloride Carbon Dioxide BUN Creatinine Estimated GFR BUN/Creatinine Ratio Glucose Lactate 5.3 H* Calcium Total Bilirubin AST ALT Alkaline Phosphatase Ammonia Total Creatine Kinase Troponin I Total Protein Albumin Globulin Albumin/Globulin Ratio Vitamin B12 Folate Prolactin Urine Color Yellow Urine Appearance Clear Urine pH 5.5 Ur Specific [place] 1.010 Urine Protein Negative Urine Glucose (UA) Negative Urine Ketones Negative Urine Occult Blood 3+ H Urine Nitrate Negative Urine Bilirubin Negative Urine Urobilinogen 0.2 Ur Leukocyte Esterase Negative Urine RBC 10-30/hpf H Urine WBC None seen Ur Squamous Epith Cells 1-5 /hpf D Urine Bacteria Few (2-10) H Ur Culture Indicated? Cult not indicated Ethyl Alcohol SARS-CoV-2 (PCR) Blood Type Antibody Screen Exam Vital Signs (past 8 hours): - 01/31/22 04:30 01/31/22 05:35 01/31/22 06:00 Pulse Rate 126 H 139 H 127 H Respiratory Rate 14 16 13 Blood Pressure 131/75 105/61 117/57 L Pulse Oximetry 93 99 93 01/31/22 06:40 01/31/22 07:36 01/31/22 07:38 Pulse Rate 126 H Respiratory Rate 11 L Blood Pressure 129/60 Pulse Oximetry 98 98 97 Fraction of Inspired Oxygen 24 Oxygen Delivery Method Mechanical Ventilation Oxygen Flow Rate 0 Quality TeleICU VTE Deep Vein Thrombosis/Pulmonary Embolism Present on Admission: No Assessment & Plan Assessment & Plan narrative: diego seen with bedside nurse chart/labs/imaging reviewed 67 year old admitted initially for GIB became unresponsive on the floor requiring intubation for aiway protection. currently afebrile, HD stable off sedation no response labs significant for ammonia of 200, lactate of 5 elevated wbc,creat 1.4 suggest -stat head CT,cap -needs eeg -lactulose -check ruq sono -check renal sono -check urine lytes -cont ivf -repeat labs -keep of sedation for now -vent support minimal -serlak ekg/tro -check echo -check cxs, start abx -keep glucose 140-180s -gi/dvt ppx, hold of AC until ct scan done -if unable to do eeg suggest transfer to a higher level of care -please call eICU if condition changes Time Spent With Patient Critical Care time: I spent a total of [] minutes of critical care time on this patient's care today; this time is exclusive of procedural time.
[2022-01-31 10:49] LABS: Troponin I 0.972 ng/mL (0.01-0.034)
--- NOTE | 2022-01-31 11:18 | DI.US.S_ITS ---
PROCEDURE: US PERIPH VENOUS LOW EXTREM BI INDICATIONS: HX OF PE TECHNIQUE: Real-time imaging, as well as color and pulse Doppler interrogation, were performed of the deep veins of both legs from the inguinal ligament to the popliteal fossa. COMPARISON: None. FINDINGS: Right: The common femoral, femoral and popliteal veins are normally compressible, and free of intraluminal thrombus. Color and pulse Doppler demonstrate normal phasic intravascular flow. There is normal augmentation response to distal compression maneuver. Left: The common femoral, femoral and popliteal veins are normally compressible, and free of intraluminal thrombus. Color and pulse Doppler demonstrate normal phasic intravascular flow. There is normal augmentation response to distal compression maneuver. IMPRESSION: No evidence of deep venous thrombosis, bilateral lower extremities Approved by: Joseph Pérez M.D. on 01/31/2022 at 15:47
--- NOTE | 2022-01-31 11:21 | DI.ECHO.S_ITS ---
[facility]---------[facility] +---------+ : : [address] : : : : [id number] : : : : Phone: [phone]+ Echocardiogram Report + + :Name: RENEE GARCIA Study Date: 01/31/2022 Height: 66 in : :[facility] ReadingLocation: Weight: 192 lb : : Gender: Female BSA: 2.0 m2 : :: 1955 Age: 67 yrs BP: 105/59 mmHg: :Reason For Study: ACUTE PULMONARY EMBOLISM : :Ordering Physician: TIA CHINCHILLA : : Performed By: Divina Bertrand : :Referring: TIA CHINCHILLA : + + Interpretation Summary Technically difficult study, There is mild concentric left ventricular hypertrophy. The left ventricle is hyperdynamic. Diastolic function could not be accurately assessed due to tachycardia. The right ventricle grossly appears normal in size with probable normal systolic function. Mild biatrial enlargement. Unable to estimate PASP. The IVC does not appear dilated. Procedure: A two-dimensional transthoracic echocardiogram with color flow and Doppler was performed. The study quality was technically difficult. There is no prior echocardiogram noted for this patient. The patient was in sinus tachycardia with heart rates between 109-121 bpm during the exam. Left Ventricle: The left ventricle is normal in size. There is mild concentric left ventricular hypertrophy. An intracavitary gradient is suspected. The left ventricle is hyperdynamic. Diastolic function could not be accurately assessed due to tachycardia. Right Ventricle: The right ventricle grossly appears normal in size with probable normal systolic function. Atria: The left atrium is mildly dilated. The right atrium is mildly dilated. There is no Doppler evidence for an interatrial shunt. Mitral Valve: The mitral valve leaflets appear mildly thickened, but open well. The mitral valve leaflets are mildly calcified. There is mild mitral annular calcification. There is trace mitral regurgitation. Aortic Valve: The aortic valve is trileaflet. The aortic valve opens well. There is no aortic valve stenosis. There is trace aortic regurgitation. Tricuspid Valve: The tricuspid valve is not well visualized, but is grossly normal. There is trace tricuspid regurgitation. Pulmonic Valve: The pulmonic valve is not well seen, but is grossly normal. There is no pulmonic valvular regurgitation. Great Vessels: The aortic root is normal size. The dimensions of the ascending aorta are normal. Inspiratory collapse cannot be assessed because of mechanical ventilation, thus CVP cannot be estimated.. The IVC does not appear dilated. Pericardium/ Pleura There is no pericardial effusion. There has been no significant change since the previous study. MMode/2D Measurements & Calculations LVIDd: 4.0 cm LVOT diam: 2.0 cm LVIDs: 1.7 cm Ao root diam: 3.0 cm FS: 55.8 % asc Aorta Diam: 3.0 cm IVSd: 1.0 cm LVPWd: 1.2 cm LV rodriguez. diameter/BSA (cm/m^2): 2.0 LV sys. diameter/BSA (cm/m^2): 0.89 LA A2 area: 24.5 cm2 RA long axis: 6.6 cm LA A4 area: 25.1 cm2 RA area: 23.3 cm2 LA length (vol): 6.5 cm RA vol: 69.2 ml LA vol: 80.6 ml RA : 35.2 ml/m2 LA vol index: 41.0 ml/m2 RVD1 (basal): 3.9 cm RVD2 (mid): 3.6 cm TAPSE: 2.3 cm Doppler Measurements & Calculations Ao V2 max: 239.8 cm/sec LVOT Max William: 146.4 cm/sec Ao V2 mean: 162.3 cm/sec LV V1 max P.6 mmHg Ao max P.0 mmHg LV V1 VTI: 24.4 cm Ao mean P.9 mmHg CHAD(I,D): 1.9 cm2 Ao V2 VTI: 39.4 cm CHAD(V,D): 1.9 cm2 sev ratio: 0.62 CHAD indexed to BSA (cm^2/m^2): 0.96 MV E max william: 81.2 cm/sec TR max william: 201.9 cm/sec MV A max william: 100.5 cm/sec TR max P.3 mmHg MV E/A: 0.81 PA V2 max: 143.7 cm/sec Med Peak E' William: 7.7 cm/sec PA V2 mean: 103.7 cm/sec E/E' med: 10.5 PA mean P.8 mmHg Lat Peak E' William: 7.3 cm/sec PA pr(Accel): 34.0 mmHg E/E' lat: 11.2 E/e' average: 10.9 MV dec time: 0.26 sec [facility] 74.6 ml Reading Physician:01:44 PM
[2022-01-31 11:30] LABS: Lactate (Lactic Acid) 2.9 mmol/L (0.7-2.1)
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
[2022-01-31 11:40] LABS: NT-proBNP (BNP-Adult 18+) 717 pg/mL (<125)
[2022-01-31 12:01] LABS: TSH w/ Reflex to FT4 3.98 uIU/mL (0.47-4.68)
[2022-01-31] MEDS: LACTULOSE 20 GM/30 ML SOLUTION 10 GM PO ×3 (12:22→21:57)
[2022-01-31] MEDS: HEPARIN DRIP 25,000 UNIT/500 ML IV.SOLN 31.418 UNIT IV (12:22)
[2022-01-31] MEDS: LACTATED RINGERS 1,000 ML 75 ML IV (12:23)
[2022-01-31 13:21] LABS: Reflexed Lactate in 2 Hours Y
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
--- NOTE | 2022-01-31 13:33 | DI.US.S_ITS ---
PROCEDURE: US ABDOMEN LIMITED INDICATIONS: CONCERN FOR CHOLECYSTITIS TECHNIQUE: Real-time scanning was performed of the right upper quadrant, with image documentation. COMPARISON: [facility], CT, CT ABDOMEN PELVIS W CON, 01/31/2022, 10:09. FINDINGS: Liver: Liver is normal in size and homogeneous in echotexture. Anechoic cyst in the right lobe of the liver measuring 7.5 cm. Gallbladder: Within normal limits in size. No stones or sludge. 2 small polyps measuring 0.4 cm. Normal gallbladder wall thickness. No pericholecystic fluid. Biliary ducts: Intrahepatic bile ducts are non-dilated. Extrahepatic bile duct caliber measures 7 mm. Normal is 6-7 mm or less in diameter, or 10 mm or less post-cholecystectomy. Pancreas: Visualized portions of the pancreas are sonographically normal. Tail is not well seen. IMPRESSION: 1. No acute cholecystitis demonstrated. No definite gallstones. 2. Small gallbladder polyps measuring 0.4 cm or less. No further imaging is required. 3. Benign liver cysts. Dictated by: Lizandro Goncalves M.D. on 01/31/2022 at 16:42 Approved by: Lizandro Goncalves M.D. on 01/31/2022 at 16:48
[2022-01-31] MEDS: PIPERACILLIN/TAZO 3.375 GM in SODIUM CHLORIDE 0.9% 100 ML 25 ML IV ×2 (14:27→21:58)
[2022-01-31 15:28] LABS: Lactate 2HR (Lactic Acid Rflx) 2.7 mmol/L (0.7-2.1)
[2022-01-31 18:22] LABS: HIV 1 & 2 Ab/Ag 4th Gen Combo NEGATIVE (NEGATIVE)
[2022-01-31 20:43] LABS: PTT Partial Thromboplastin Tim > 400 SECONDS (26.4-36.2)
--- NOTE | 2022-01-31 21:20 | PM.ICURNDS ---
- Date Patient Seen: 01/31/22 Time Patient Seen: 21:05 :: This patient was seen via real time interactive two-way audiovisual telecommunication. Note: 67 y.o. female w/ acute neuromuscular respiratory failure due to hepatic encephalopathy. Also w/ small R-sided PE. On heparin IV. Hemodynamically stable. Off all analgosedation. Receiving PO lactulose. INTERVENTIONS: 1) Rifaxmin added 2) POC glucose/hypoglycemia meds added 3) Daily NH3 RECOMMENDATIONS: Stop antibiotics if cultures negative in 48-72H. In retrospect, this AM's events do not appear to be infectious in etiology.
[2022-01-31] MEDS: VANCOMYCIN 750 MG/150 ML PIGGYBACK 150 MG IV (21:55)
[2022-01-31] MEDS: RIFAXIMIN 550 MG TABLET PO (21:59)
[2022-02-01] VITALS (55 sets, daily range): BP systolic 75–145; BP diastolic 46–93; PULSE 57–106; RESP 1–32; TEMP 35.6–39.2; O2SAT 91–100
--- NOTE | 2022-02-01 | DI.CT.S_ITS ---
PROCEDURE: CT HEAD/BRAIN WO CON INDICATIONS: New-onset seizures, concern for cerebral edema/encephalitis TECHNIQUE: Noncontrast 4.5 mm thick angled axial sections acquired from the foramen magnum to the vertex, with coronal and sagittal reformats. For radiation dose reduction, the following was used: automated exposure control, adjustment of mA and/or kV according to patient size. COMPARISON: [facility], CT, CT HEAD/BRAIN WO CON, 01/31/2022, 10:09. FINDINGS: Image quality: Excellent. CSF spaces: Basal cisterns are patent. No extra-axial fluid collections. The ventricles are symmetric in size and shape. Brain: No intracranial bleeds or masses. There is cerebral volume loss for age, with resultant ventricular and sulcal prominence. There are periventricular and deep white matter chronic small vessel ischemic changes. Skull and face: Calvarium and visualized facial bones appear intact, without suspicious lesions. Sinuses: Visualized sinuses and mastoids are clear. IMPRESSION: No acute intracranial abnormality. Dictated by: Elroy Gamez M.D. on 02/01/2022 at 8:28 Approved by: Elroy Gamez M.D. on 02/01/2022 at 8:31
--- NOTE | 2022-02-01 00:30 | PC.NURSE ---
Addendum entered by Jess Bello R.N. 02/01/22 06:15: 0600- Moderate amount of keshav blood noted to be coming out of the OG. Dr. Ferrara notified and Heparin gtt placed on standby. Dr. Ferrara shown eye deviation and pupil size and response. He will place order for CT to be done on day shift. Patient remains without purposeful movement, uop has improved overnight, nystagmus is still present. No further seizure activity since 0200. Labs are pending. No further tarry stool. Will monitor closely. Addendum entered by Jess Bello R.N. 02/01/22 02:09: 0200- Patient saturations dropped and patient noted to be having a seizure. Left facial and Left arm fully involved. Patient 02 increased to 100%. Intensive care doctor Gideon notified and orders recieved. Seizure lasted approximatly 45 seconds. Eyes remain deviated to the left with nystagmus, pupils are at 4mm and more sluggish. Will monitor. Original Note: 0000- Breath sounds are coarse with lucia thick secretions. RT notified and she will obtain a sputum sample. Back of nasopharanex had pooled keshav blood but when OG placed to LIS a very scant amount of blood noted. Etiology unclear will monitor. Patient will open her eyes when stimulated but they are deviated to the left with nystagmus. Pupils remain 4mm and sluggish. Patient does not make purposeful movements with arms or legs. Moderate black stool this evening. Patient holds her head to the right. Urine is yakelin. Will monitor.
[2022-02-01] MEDS: LORazepam 2 MG/ML INJ 4 MG IV (02:00)
[2022-02-01] MEDS: levETIRAcetam 1,500 MG in SODIUM CHLORIDE 0.9% 100 ML 460 ML IV ×2 (02:28→10:20)
[2022-02-01] MEDS: LACTATED RINGERS 1,000 ML 75 ML IV ×2 (02:31→16:35)
[2022-02-01 04:13] LABS: HBsAg Screen Negative (Negative); Hepatitis A Antibody IgM Negative (Negative); Hepatitis B Core Antibody IgM Negative (Negative); Hepatitis C Antibody 0.2 s/co ratio (0.0-0.9)
[2022-02-01] MEDS: PIPERACILLIN/TAZO 3.375 GM in SODIUM CHLORIDE 0.9% 100 ML 25 ML IV (05:56)
[2022-02-01 05:57] LABS: Ammonia (NH3) 65 umol/L (9-30)
[2022-02-01] MEDS: HEPARIN DRIP 25,000 UNIT/500 ML IV.SOLN 25.4 UNIT IV (06:02)
[2022-02-01 06:06] LABS: Add Manual Diff / Slide Review NO; BUN Creatinine Ratio 48.9 (6-22); Basophils Absolute Auto 100 /uL (0-100); Basophils Percent Auto 0.5 % (0-2); Blood Urea Nitrogen 68 mg/dL (7-17); Calcium 7.7 mg/dL (8.4-10.2); Carbon Dioxide 21 mmol/L (22-32); Chloride 115 mmol/L (98-107); Eosinophils Absolute Auto 0 /uL (0-450); Eosinophils Percent Auto 0.2 % (2-4); Estimated Glomerular Filt Rate 41 mL/min (>60); Glucose 117 mg/dL (80-110); HEMOLYSIS < 15 (0-50); Lymphocytes Absolute Auto 2200 /uL (1100-4500); Lymphocytes Percent Auto 19.7 % (25-40); Mean Corpuscular HGB Conc 34.1 % (30-36); Mean Corpuscular Hemoglobin 38.6 PG (26-34); Mean Corpuscular Volume 113.1 fL (80-100); Monocytes Absolute Auto 1200 /uL (0-900); Monocytes Percent Auto 11.2 % (3-14); Neutrophils Absolute Auto 7500 /uL (1500-7000); Neutrophils Percent Auto 68.4 % (50-75); Phosphorous 3.1 mg/dL (2.8-4.1); Platelet Count 91 X10^3/uL (150-400); Potassium 3.2 mmol/L (3.4-5.1); Red Blood Cell Count 1.65 X10^6/uL (4.0-5.2); Red Cell Distribution Width 17.2 % (11.6-14.8); Sodium 145 mmol/L (137-145)
[2022-02-01 06:30] LABS: Hematocrit 18.7 % (36-46); Hemoglobin 6.4 g/dL (12.0-16.0)
[2022-02-01 06:32] LABS: PTT Partial Thromboplastin Tim > 400 SECONDS (26.4-36.2)
[2022-02-01 06:33] LABS: Magnesium 0.9 mg/dL (1.6-2.3)
[2022-02-01] MEDS: MAGNESIUM SULFATE 2 GM/50 ML PIGGYBACK IV (07:04)
[2022-02-01 07:12] LABS: Anisocytosis 2+; Macrocytosis 2+
[2022-02-01 07:13] LABS: Polychromasia 1+
[2022-02-01 08:05] LABS: Valproic Acid (Depakene) Total < 4 ug/mL (50-100)
[2022-02-01] MEDS: LORazepam 2 MG/ML INJ IV ×4 (08:30→22:30)
[2022-02-01] MEDS: ACETAMINOPHEN 325 MG TABLET 975 MG PO (09:08)
[2022-02-01] MEDS: LACTULOSE 20 GM/30 ML SOLUTION PO ×2 (09:08→15:07)
[2022-02-01] MEDS: MULTIVITAMIN 1 TABLET 1 TAB PO (09:08)
[2022-02-01] MEDS: FOLIC ACID 1 MG TABLET PO (09:08)
[2022-02-01] MEDS: PANTOPRAZOLE 40 MG VIAL IV ×2 (09:08→20:49)
[2022-02-01] MEDS: ASCORBIC ACID 500 MG TABLET PO (09:09)
[2022-02-01] MEDS: RIFAXIMIN 550 MG TABLET PO ×2 (09:17→20:48)
[2022-02-01] MEDS: THIAMINE 500 MG in SODIUM CHLORIDE 0.9% 100 ML 408 ML IV ×3 (09:17→20:36)
[2022-02-01] MEDS: VANCOMYCIN 750 MG/150 ML PIGGYBACK 150 MG IV ×2 (09:25→20:54)
[2022-02-01] MEDS: propofoL 1,000 MG/100 ML VIAL 2.618 MG IV (09:56)
--- NOTE | 2022-02-01 10:11 | PM.PN.EICU ---
Subjective Subjective :: This patient was seen via real time interactive two-way audiovisual telecommunication. seizure like acitvity in am noted tarry stool with hgb drop overnight Current Medications Current Medications Medications: Home Medications calcium carbonate 500 mg-vitamin D3 5 mcg (200 unit) tablet (Oyster Shell Calcium-Vitamin D3) 1 tab PO DAILY #0 tab 06/17/16 [History Confirmed 01/30/22] ascorbic acid (vitamin C) 500 mg capsule,extended release (Vitamin C) 500 mg PO DAILY 02/20/18 [History Confirmed 01/30/22] metoprolol tartrate 50 mg tablet 50 mg PO BID #60 tab 09/25/21 [Rx Confirmed 01/30/22] alprazolam 0.5 mg tablet 0.5 mg PO DAILY 01/30/22 [History Confirmed 01/30/22] chlorthalidone 25 mg tablet 25 mg PO 4-6XD 01/30/22 [History Confirmed 01/30/22] Visit Medications (administered) Generic Name Dose Route Start Last Admin Trade Name Bijanq PRN Reason Stop Dose Admin Acetaminophen 975 mg 02/01/22 08:39 02/01/22 09:08 Acetaminophen 325 Mg Tablet PO 975 mg Q8H PRN Administration Fever > 100.4 Ascorbic Acid 500 mg 01/31/22 09:00 02/01/22 09:09 Ascorbic Acid 500 Mg Tablet PO 500 mg DAILY ABRAHAM Administration Folic Acid 1 mg 01/31/22 09:00 02/01/22 09:08 Folic Acid 1 Mg Tablet PO 1 mg DAILY ABRAHAM Administration Thiamine HCl 500 mg/ Sodium 105 mls @ 408 mls/hr 01/31/22 04:00 02/01/22 09:17 Chloride IV 408 mls/hr TID ABRAHAM Administration Propofol 1,000 mg in 100 mls @ 2.618 mls/hr 01/31/22 04:37 02/01/22 09:56 Propofol IV 5 mcg/kg/min TITRATE ABRAHAM 2.618 mls/hr Administration Protocol 5 MCG/KG/MIN Fentanyl 1,000 mcg/ Dextrose 250 mls @ 15.272 mls/hr 01/31/22 04:37 01/31/22 07:45 IV 0 mcg/kg/hr TITRATE ABRAHAM 0 mls/hr Titration Protocol 0.7 MCG/KG/HR NOREPINEPHRINE BITARTRATE/D5W 4 mg in 250 mls @ 30 mls/hr 01/31/22 04:37 01/31/22 07:45 Levophed IV 0 mcg/min TITRATE ABRAHAM 0 mls/hr Titration Protocol 8 MCG/MIN Vancomycin HCl 750 mg in 150 mls @ 150 mls/hr 01/31/22 21:00 02/01/22 09:25 Vancomycin IV 150 mls/hr Q12H ABRAHAM Administration Lactated Ringer's 1,000 mls @ 75 mls/hr 01/31/22 10:00 02/01/22 02:31 Lactated Ringers IV 75 mls/hr CONT ABRAHAM Administration Piperacillin Sod/Tazobactam 100 mls @ 25 mls/hr 01/31/22 14:00 02/01/22 05:56 Sod 3.375 gm/ Sodium Chloride IV 25 mls/hr Q8H ABRAHAM Administration Lactulose 20 gm 02/01/22 09:00 02/01/22 09:08 Lactulose 20 Gm/30 Ml Solution PO 20 gm TID ABRAHAM Administration Lorazepam 2 mg 02/01/22 02:10 02/01/22 09:12 Lorazepam 2 Mg/Ml Inj IV 2 mg [id number] PRN Administration Seizure Activity Multivitamins 1 tab 01/31/22 09:00 02/01/22 09:08 Multivitamin 1 Tablet PO 1 tab DAILY ABRAHAM Administration Pantoprazole Sodium 40 mg 01/30/22 21:00 02/01/22 09:08 Pantoprazole 40 Mg Vial IV 40 mg BID ABRAHAM Administration Rifaximin 550 mg 01/31/22 21:30 02/01/22 09:17 Rifaximin 550 Mg Tablet PO 550 mg BID ABRAHAM Administration Objective Ventilator Parameters: Ventilator Settings FiO2 24 RT Vent Frequency 12 Ventilator Tidal Volume 470 Exhaled Vt/kg IBW 8 Positive End Expiratory 5 Pressure Inspiratory Phase Time 0.9 I:E Ratio 1:2 Patient Position HOB >= 30 degrees Labs Result Diagrams: 02/01/22 05:30 02/01/22 05:30 Labs: Laboratory Results - last 24 hr 01/30/22 01/31/22 01/31/22 10:35 09:45 09:45 WBC RBC Hgb Hct MCV MCH MCHC RDW Plt Count Neut % (Auto) Lymph % (Auto) [place] % (Auto) Eos % (Auto) Baso % (Auto) Neut # (Auto) Lymph # (Auto) [place] # (Auto) Eos # (Auto) Baso # (Auto) RBC Morphology Polychromasia Anisocytosis Macrocytosis APTT Sodium Potassium Chloride Carbon Dioxide BUN Creatinine Estimated GFR BUN/Creatinine Ratio Glucose Lactate 2.9 H Calcium Phosphorus Magnesium Ammonia Troponin I 0.972 H* NT-Pro-B Natriuret Pep TSH Nasal Screen MRSA (PCR) Total Valproic Acid Hepatitis A IgM Ab Hep Bs Antigen Hep B Core IgM Ab Hepatitis C Antibody Hep C Ab Signal/Cutoff HIV 1&2 Ab/P24 Ag 4thGn Blood Type A Positive Antibody Screen Negative Crossmatch See Detail 01/31/22 01/31/22 01/31/22 09:45 09:45 12:15 WBC RBC Hgb Hct MCV MCH MCHC RDW Plt Count Neut % (Auto) Lymph % (Auto) [place] % (Auto) Eos % (Auto) Baso % (Auto) Neut # (Auto) Lymph # (Auto) [place] # (Auto) Eos # (Auto) Baso # (Auto) RBC Morphology Polychromasia Anisocytosis Macrocytosis APTT Sodium Potassium Chloride Carbon Dioxide BUN Creatinine Estimated GFR BUN/Creatinine Ratio Glucose Lactate Calcium Phosphorus Magnesium Ammonia Troponin I NT-Pro-B Natriuret Pep 717 H TSH 3.98 Nasal Screen MRSA (PCR) Negative for mrsa Total Valproic Acid Hepatitis A IgM Ab Hep Bs Antigen Hep B Core IgM Ab Hepatitis C Antibody Hep C Ab Signal/Cutoff HIV 1&2 Ab/P24 Ag 4thGn Blood Type Antibody Screen Crossmatch 01/31/22 01/31/22 01/31/22 13:21 16:30 16:30 WBC RBC Hgb Hct MCV MCH MCHC RDW Plt Count Neut % (Auto) Lymph % (Auto) [place] % (Auto) Eos % (Auto) Baso % (Auto) Neut # (Auto) Lymph # (Auto) [place] # (Auto) Eos # (Auto) Baso # (Auto) RBC Morphology Polychromasia Anisocytosis Macrocytosis APTT Sodium Potassium Chloride Carbon Dioxide BUN Creatinine Estimated GFR BUN/Creatinine Ratio Glucose Lactate 2.7 H Calcium Phosphorus Magnesium Ammonia Troponin I NT-Pro-B Natriuret Pep TSH Nasal Screen MRSA (PCR) Total Valproic Acid < 4 L Hepatitis A IgM Ab Hep Bs Antigen Hep B Core IgM Ab Hepatitis C Antibody Hep C Ab Signal/Cutoff HIV 1&2 Ab/P24 Ag 4thGn Negative Blood Type Antibody Screen Crossmatch 01/31/22 01/31/22 01/31/22 16:30 16:30 18:09 WBC RBC Hgb Hct MCV MCH MCHC RDW Plt Count Neut % (Auto) Lymph % (Auto) [place] % (Auto) Eos % (Auto) Baso % (Auto) Neut # (Auto) Lymph # (Auto) [place] # (Auto) Eos # (Auto) Baso # (Auto) RBC Morphology Polychromasia Anisocytosis Macrocytosis APTT > 400 H* D Sodium Potassium Chloride Carbon Dioxide BUN Creatinine Estimated GFR BUN/Creatinine Ratio Glucose Lactate Calcium Phosphorus Magnesium Ammonia Troponin I 0.720 H* NT-Pro-B Natriuret Pep TSH Nasal Screen MRSA (PCR) Total Valproic Acid Hepatitis A IgM Ab Negative Hep Bs Antigen Negative Hep B Core IgM Ab Negative Hepatitis C Antibody 0.2 Hep C Ab Signal/Cutoff Comment HIV 1&2 Ab/P24 Ag 4thGn Blood Type Antibody Screen Crossmatch 02/01/22 02/01/22 02/01/22 05:30 05:30 05:30 WBC 11.0 RBC 1.65 L Hgb 6.4 L* Hct 18.7 L* MCV 113.1 H MCH 38.6 H MCHC 34.1 RDW 17.2 H Plt Count 91 L Neut % (Auto) 68.4 Lymph % (Auto) 19.7 L [place] % (Auto) 11.2 Eos % (Auto) 0.2 L Baso % (Auto) 0.5 Neut # (Auto) 7500 H Lymph # (Auto) 2200 [place] # (Auto) 1200 H Eos # (Auto) 0 Baso # (Auto) 100 RBC Morphology See below Polychromasia 1+ H Anisocytosis 2+ H Macrocytosis 2+ H APTT Sodium 145 Potassium 3.2 L Chloride 115 H Carbon Dioxide 21 L BUN 68 H Creatinine 1.39 H Estimated GFR 41 L BUN/Creatinine Ratio 48.9 H Glucose 117 H Lactate Calcium 7.7 L Phosphorus 3.1 Magnesium 0.9 L* Ammonia 65 H Troponin I NT-Pro-B Natriuret Pep TSH Nasal Screen MRSA (PCR) Total Valproic Acid Hepatitis A IgM Ab Hep Bs Antigen Hep B Core IgM Ab Hepatitis C Antibody Hep C Ab Signal/Cutoff HIV 1&2 Ab/P24 Ag 4thGn Blood Type Antibody Screen Crossmatch 02/01/22 05:30 WBC RBC Hgb Hct MCV MCH MCHC RDW Plt Count Neut % (Auto) Lymph % (Auto) [place] % (Auto) Eos % (Auto) Baso % (Auto) Neut # (Auto) Lymph # (Auto) [place] # (Auto) Eos # (Auto) Baso # (Auto) RBC Morphology Polychromasia Anisocytosis Macrocytosis APTT > 400 H* Sodium Potassium Chloride Carbon Dioxide BUN Creatinine Estimated GFR BUN/Creatinine Ratio Glucose Lactate Calcium Phosphorus Magnesium Ammonia Troponin I NT-Pro-B Natriuret Pep TSH Nasal Screen MRSA (PCR) Total Valproic Acid Hepatitis A IgM Ab Hep Bs Antigen Hep B Core IgM Ab Hepatitis C Antibody Hep C Ab Signal/Cutoff HIV 1&2 Ab/P24 Ag 4thGn Blood Type Antibody Screen Crossmatch Exam Vital Signs (past 8 hours): - 02/01/22 02:30 02/01/22 03:00 02/01/22 03:30 Temperature Pulse Rate 91 H 91 H 89 Respiratory Rate 13 13 11 L Blood Pressure 109/55 L Pulse Oximetry 96 96 94 02/01/22 04:00 02/01/22 04:30 02/01/22 04:37 Temperature 99.0 F Pulse Rate 87 86 Respiratory Rate 13 11 L Blood Pressure 109/64 Pulse Oximetry 91 99 02/01/22 05:00 02/01/22 05:01 02/01/22 05:30 Temperature Pulse Rate 89 91 H 90 Respiratory Rate 13 12 12 Blood Pressure 140/62 Pulse Oximetry 99 99 99 02/01/22 06:00 02/01/22 07:00 02/01/22 07:46 Temperature 101.3 F H Pulse Rate 97 H 100 H Respiratory Rate 13 13 Blood Pressure 141/62 H 133/64 Pulse Oximetry 100 100 99 02/01/22 08:42 02/01/22 09:00 02/01/22 09:03 Temperature 101.4 F H 101.6 F H Pulse Rate 92 H 93 H 91 H Respiratory Rate 17 16 13 Blood Pressure 130/68 132/62 134/65 Pulse Oximetry 100 02/01/22 09:08 Temperature 101.6 F H Pulse Rate Respiratory Rate Blood Pressure Pulse Oximetry Fraction of Inspired Oxygen 24 Oxygen Delivery Method Mechanical Ventilation Oxygen Flow Rate 0 Quality TeleICU VTE Deep Vein Thrombosis/Pulmonary Embolism Present on Admission: No Assessment & Plan Assessment & Plan narrative: patient seen with bedside nurse chart/labs/imaging reviewed 67 year old admitted initially for GIB became unresponsive on the floor requiring intubation for aiway protection. currently afebrile, HD stable seizure like activity noted ammonia level imiproved, creat worse suggest -ct head -ve twice -suggest MRI -still needs eeg -loaded with keppra, if continues to have seizure activity would add dilating -start propofol for now -needs an LP bobby -lactulose/rifaxamin, ammonia level improved, mentation has not -ruq sono -ve for acute findings -duplex -ve for dvt -dc heparin -transfuse 2 units prnc -ppi bid -vent support minimal -continue abx, check cxs, start gent (pcn allergy)/acyclovir/decadron -keep glucose 140-180s -gi/dvt ppx, hold of AC until ct scan done -if unable to do eeg suggest transfer to a higher level of care -please call eICU if condition changes Time Spent With Patient Critical Care time: I spent a total of [] minutes of critical care time on this patient's care today; this time is exclusive of procedural time.
[2022-02-01] MEDS: ACYCLOVIR 500 MG in DEXTROSE 5% IN WATER 250 ML IV (11:32)
[2022-02-01] MEDS: DEXAMETHASONE 4 MG/ML VIAL IV (11:33)
[2022-02-01 11:49] LABS: Prolactin 61.6 ng/mL (3.0-18.6)
--- NOTE | 2022-02-01 12:16 | CM.DPC ---
DCP Cont: Discussed patient during team rounds. It is noted that patient had a seizure early this morning. At this time, hospitalist is working on getting patient to higher level hospital for EEG.Patient is intubated. She is on anti-seizure medications. P: DCP to continue to follow closely. Page Hsu RN/Reverberatory Furnace Operator
[2022-02-01] MEDS: POTASSIUM CHLORIDE IN WATER 10 MEQ/100 ML PIGGYBACK 100 MEQ IV ×4 (12:31→16:45)
[2022-02-01 12:59] LABS: Hematocrit 21.7 % (36-46); Hemoglobin 7.3 g/dL (12.0-16.0)
[2022-02-01] MEDS: MIDAZOLAM 50 MG in DEXTROSE 5% IN WATER 240 ML 8.72 ML IV (13:16)
[2022-02-01] MEDS: MIDAZOLAM 50 MG in DEXTROSE 5% IN WATER 240 ML 25 ML IV (14:40)
[2022-02-01] MEDS: FOSPHENYTOIN IV (15:06)
[2022-02-01] MEDS: SODIUM CHLORIDE 0.9% IV (15:06)
--- NOTE | 2022-02-01 16:10 | DIET.CONS ---
Dietary Consultation Note Admission Date: 01/30/2022 12:09 Assessment: 67 y/o F admitted c acute upper GI bleed, h/o ETOH abuse, macrocytic anemia, elevated INR, h/o anxiety d/o, and HTN. Intubated the morning of 01/31. HASHER OPERATOR informed this RD that they may need TF recs. No RD here until Friday. Will place recs in this note for use prn. Endoscopy per staff notes indicates mild gastritis, hemodynamically stable. Had seizure this morning, currently on anti-seizure meds. K 3.2 L, Mg 0.9 L, phos 3.1 Per staff notes, friend indicates she drinks 4 glasses wine + shots whiskey daily. Given ETOH hx, pt at high risk for refeeding syndrome. Ht: 167.64 cm Wt: 87.2 kg BMI: 31.0 Last BM: 02/01/22 (02/01/22 14:00) MNA: 13 Eyal Score: 9 Labs: RBC 1.65 X10^6/uL (4.0-5.2) L 02/01/22 05:30 Hgb 7.3 g/dL (12.0-16.0) L 02/01/22 12:51 Hct 21.7 % (36-46) L 02/01/22 12:51 Creatinine 1.39 mg/dL (0.52-1.04) H 02/01/22 05:30 Lactate 2.7 mmol/L (0.7-2.1) H 01/31/22 13:21 NT-Pro-B Natriuret Pep 717 pg/mL (<125) H 01/31/22 09:45 Nutrition Diagnosis: Inadequate oral intake r/t intubation aeb insufficient energy intake compared to estimated energy expenditure Interventions: 1. Recc continuous feeding Pivot 1.5 starting at 10mL/h titrating up by 10mL q 4-6h as tolerated until reaching goal rate of 45mL/h. Recc 250mL free water flushes q 4h. Feed plus formula provides 98% kcals, 100-125% PRO, and 100% fluids Feed kcals: 1620 Feed PRO: 101g Feed water: 820mL Water flushes: 1500mL Total fluids: 2320mL *Note: if pt is given propofol, this increases pt kcal intake and TF rate will need to be adjusted accordingly. 2. HOB elevated at least 30 degrees at all time to reduce risk of aspiration. 3. Daily weights 4. Pt at risk for refeeding, check refeeding labs BID and replenish prn EER: Nutrition dosing wt: 66.3kkcals (25kcal/kg) ; 80-99g PRO (1.2-1.5g/kg) 2300mL fluids (35mL/kg) Monitoring/Evaluations: TF tolerance, refeeding labs, wts. RDN follow-up 3 days. Electronically Signed by: Aurea Silva 02/01/22 16:10 Clinical Dietitian [address] [address]
[2022-02-01] MEDS: AMPICILLIN 2,000 MG in SODIUM CHLORIDE 0.9% 100 ML 200 ML IV ×2 (16:34→20:54)
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
[2022-02-01] MEDS: DEXAMETHASONE 4 MG/ML VIAL 10 MG IV (17:59)
--- NOTE | 2022-02-01 18:44 | PC.NURSE ---
Pt has continued with intermittent seizure activity over the course of the day. 2 doses of ativan given this AM without sustained improvement. Dr. Choudhury and Dr. Jordan both notified. Dr. Jordan rec starting propofol and titrating to cessation of seizure activity. Dr. Choudhury reviewed and placed new order for Versed titrated to cessation of seizure activity. Requested clarification of orders for titration parameters- med is ordered to titrate to RASS score. Dr. Choudhury initially instructs to titrate up to 5 mg/hr PRN seizure activity however this dosing did not provide sustained results and pt was noted to have twitching of left face and clonic movements of BUE. Instruction received to titrate up to 7 mg/hr. Requested clarification of orders for ongoing titration- MD instructs to ask pharmacy for rec's. Notified pharmacist. Awaiting rec's. Plan is for pt to transfer to higher level of care.
[2022-02-01] MEDS: WATER IV (20:00)
[2022-02-01] MEDS: DEXTROSE 5% IV (20:00)
[2022-02-01] MEDS: ACYCLOVIR IV (20:00)
[2022-02-01] MEDS: levETIRAcetam 750 MG in SODIUM CHLORIDE 0.9% 100 ML 430 ML IV (21:04)
[2022-02-01] MEDS: MIDAZOLAM 50 MG in DEXTROSE 5% IN WATER 240 ML 40 ML IV (21:56)
--- NOTE | 2022-02-01 22:03 | PC.NURSE ---
Addendum entered by Jess Bello R.N. 02/02/22 00:42: 2300- Report called to Jimmie Espinal. Patient remains with soft BP after bolus. Dr. Ferrara ordered Levophed gtt. Started per order. from [facility] called Dr. Ferrara requesting a Stat H/H and start a Propofol gtt. Both were done as requested. Report was given to EMS upon arrival. Departure was delayed due to additional requested tests and time it took to get patient hemodynamically stable. Patient transported via Ambulance at 0045. Patient was stable at the time of discharge. Original Note: 2200- Patient noted to have bright red face and bilateral arm tensing. Patient unable to lift her arms but wrists were turning inward toward her body on both sides. Pupils during this time were 4mm and nonreactive. Vent alarming apnea. Versed increased to 8mg/hr and 2mg IV Ativan given. Patient back to baseline, pupils are sluggish at 3mm. Will monitor.
[2022-02-01] MEDS: SODIUM CHLORIDE 0.9% 500 ML 1000 ML IV (22:30)
--- NOTE | 2022-02-01 23:21 | PM.ICURNDS ---
- Date Patient Seen: 02/01/22 Time Patient Seen: 23:14 :: This patient was seen via real time interactive two-way audiovisual telecommunication. Note: 67 y.o. with acute neuromuscular respiratory failure. Daytime shift events noted; presumptive diagnosis is NCSE but patient is also being treated for a possible meningitis/meningoencephalitis. Plans are underway to tx patient to a neuro ICU, possibly 4/30 AM. Remains on treatment for hyperammonemia as well. No interventions made during MDRs other than to establish a RASS target of -4.
[2022-02-02] VITALS: BP 120/65; PULSE 58; RESP 16; TEMP 35.6; O2SAT 100
[2022-02-02] MEDS: DEXAMETHASONE 4 MG/ML VIAL 10 MG IV (00:04)
[2022-02-02 00:05] VITALS: BP 114/61; PULSE 61; RESP 16; TEMP 35.6; O2SAT 100
[2022-02-02] MEDS: NOREPINEPHRINE BITARTRATE/D5W 4 MG/250 ML PLAST..BAG 2 MG IV (00:05)
[2022-02-02] MEDS: propofoL 1,000 MG/100 ML VIAL 2.616 MG IV (00:06)
[2022-02-02 00:10] VITALS: BP 106/56; PULSE 59; RESP 14; TEMP 35.6; O2SAT 100
[2022-02-02 00:12] LABS: Hemoglobin 7.6 g/dL (12.0-16.0)
[2022-02-02 00:13] LABS: Hematocrit 22.3 % (36-46)
[2022-02-02 00:15] VITALS: BP 103/59; PULSE 60; RESP 14; TEMP 35.6; O2SAT 100
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
[2022-02-02] MEDS: LORazepam 2 MG/ML INJ IV (00:35)
[2022-02-13 12:40] LABS: Vitamin B1 161.1 nmol/L (66.5-200.0)
== END 2022-02-02 00:45 | disposition short-term general hospital (02) | DRG 377 ==
LOC: ED 12:03 → AC 12:27 → ICU 01-31 08:57 → AC 01-31 14:04 → ICU 01-31 14:13 → AC 02-01 13:13 → ICU 02-01 13:13
PROVIDERS: Family Medicine; Internal Medicine; Internal Medicine Critical Care Medicine; Surgery; Admitting Provider Student in an Organized Health Care Education/Training Program; Emergency Provider Emergency Medicine; PCP Physician Assistant; Referring Provider Emergency Medicine; Visit Provider Student in an Organized Health Care Education/Training Program
PROC: 0DJ08ZZ Inspection of Upper Intestinal Tract, Via Natural or Artificial Opening Endoscopic (ICD-10-PCS; CPT 43235; principal; 2022-01-30 13:15)
DX: K29.21 Alcoholic gastritis with bleeding (principal); J96.01 Acute respiratory failure with hypoxia; G93.41 Metabolic encephalopathy; I26.99 Other pulmonary embolism without acute cor pulmonale; G00.9 Bacterial meningitis, unspecified; G04.81 Other encephalitis and encephalomyelitis; N17.9 Acute kidney failure, unspecified; E87.2 Acidosis; E72.20 Disorder of urea cycle metabolism, unspecified; G40.801 Other epilepsy, not intractable, with status epilepticus; A87.9 Viral meningitis, unspecified; A86 Unspecified viral encephalitis; D62 Acute posthemorrhagic anemia; F10.11 Alcohol abuse, in remission; R00.0 Tachycardia, unspecified; Y90.0 Blood alcohol level of less than 20 mg/100 ml; Z20.822 Contact with and (suspected) exposure to COVID-19
CPT/HCPCS: 36415; 36430; 36592; 36600; 43235; 70450; 71045; 71275; 74177; 76705; 80048; 80053; 80074; 80164; 80320; 81001; 81003; 82140; 82550; 82607; 82746; 82805; 82962; 83605; 83735; 83880; 84100; 84146; 84425; 84443; 84484; 85014; 85018; 85025; 85610; 85730; 86850; 86900; 86901; 87040; 87389; 87635; 87797; 93005; 93306; 93970; 94002; 94003; 94799; 96374; 96375; 99232; 99284; C9803; P9016; C9113; J0290; J0713; J1100; J1644; J1953; J2060; J2185; J2250; J2405; J2543; J2704; J2765; J3010; J3475; Q2009; Q9967